=== PATIENT | female | born 1970 | race Caucasian/White ===

== ENCOUNTER 2016-05-05 12:48 | Emergency (ER) | payer OTHER ==
[2016-05-05 13:07] VITALS: BMI 27.4
[2016-05-05 13:12] VITALS: TEMP 98.3
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
[2016-05-05 14:59] VITALS: BP 120/65; PULSE 79; RESP 16; O2SAT 100
== END 2016-05-05 14:59 | disposition home or self-care (01) ==
LOC: ED 12:48
DX: S33.5XXA Sprain of ligaments of lumbar spine, initial encounter (principal); V49.9XXA Car occupant (driver) (passenger) injured in unspecified traffic accident, initial encounter

== ENCOUNTER 2018-01-05 06:36 | Emergency (ER) | payer OTHER ==
[2018-01-05 06:44] VITALS: BMI 28.3
[2018-01-05] MEDS ORDERED: Sodium Chloride 0.9% 500 ML IV STA (07:32)
[2018-01-05 08:11] LABS: BASO # 0.03 K/mm3 (0.0-2.0); BASO % 0.5 % (0.0-3.0); EOS # 0.2 (0.0-0.7); EOS % 3.2 % (1.5-5.0); GRAN # 4.32 (1.4-6.5); GRAN % 65.1 % (50.0-68.0); HEMOGLOBIN 10.5 g/dL (12.0-16.0); LYMPH # 1.4 (1.2-3.4); LYMPH % 21.1 % (22.0-35.0); MEAN CORPUSCULAR HEMOGLOBIN 24.5 pg (25.0-35.0); MEAN CORPUSCULAR HGB CONC 32.2 g/dl (31.0-37.0); MEAN PLATELET VOLUME 8.1 fl (7.0-11.0); MONO # 0.7 (0.1-0.6); MONO % 10.1 % (1.0-6.0); RBC 4.29 10^6/uL (3.5-6.1); RED CELL DISTRIBUTION WIDTH 14.7 % (11.5-14.5); WHITE BLOOD COUNT 6.6 10^3/uL (4.5-11.0)
[2018-01-05 08:15] LABS: ALB/GLOB RATIO 0.9 (1.1-1.8); ALBUMIN 3.4 g/dL (3.0-4.8); ALT/SGPT 24 U/L (7-56); AST/SGOT 17 U/L (14-36); BLOOD UREA NITROGEN 5 mg/dL (7-21); CALCIUM 8.4 mg/dL (8.4-10.5); GFR NON-AFRICAN AMERICAN > 60; LIPASE 84 U/L (23-300)
[2018-01-05 08:22] LABS: URINE BILIRUBIN NEGATIVE (NEGATIVE); URINE BLOOD LARGE (NEGATIVE); URINE GLUCOSE (UA) NEGATIVE (NEGATIVE); URINE LEUKOCYTE ESTERASE TRACE Leu/uL (NEGATIVE); URINE PROTEIN 30 mg/dL (<30 mg/dL); URINE UROBILINOGEN 0.2 E.U./dL (<1 E.U./dL)
[2018-01-05] MEDS ORDERED: Iohexol 350 MG/100 ML VIAL ONE (08:22)
[2018-01-05 08:27] LABS: URINE APPEARANCE CLEAR (CLEAR); URINE COLOR YELLOW (YELLOW)
--- NOTE | 2018-01-05 09:22 | CT ---
Date of service: 01/05/2018 PROCEDURE: CT Abdomen and Pelvis with contrast HISTORY: right-sided abdominal pain COMPARISON: CT abdomen and pelvis with IV contrast performed 11/25/15 TECHNIQUE: Contrast dose: 100 mL Omnipaque 350 Radiation dose: Total exam DLP = 429.85 mGy-cm. This CT exam was performed using one or more of the following dose reduction techniques: Automated exposure control, adjustment of the mA and/or kV according to patient size, and/or use of iterative reconstruction technique. FINDINGS: LOWER THORAX: No visible consolidation, pleural effusion, or pneumothorax. LIVER: Unremarkable. GALLBLADDER AND BILE DUCTS: Cholecystectomy. PANCREAS: Unremarkable. SPLEEN: Unremarkable. ADRENALS: Unremarkable. KIDNEYS AND URETERS: The kidneys enhance symmetrically. No hydronephrosis or obstructing calculus identified. VASCULATURE: No aortic aneurysm. No atherosclerotic calcification or mural plaque present. BOWEL: Stomach is nondistended. Lack of oral contrast limits evaluation for bowel pathology. No evidence of small-bowel obstruction. Abnormal irregularly thick walled cecum with suspected soft tissue neoplasm involving the cecum and proximal terminal ileum. Focal region of wall thickening involving the mid left colon. APPENDIX: The presumed appendix appears within normal limits of caliber. No secondary signs of acute appendicitis. PERITONEUM: Small pelvic free fluid. No definite free air. LYMPH NODES: Pericecal and mesenteric lymphadenopathy. For example abnormal enlarged pericecal lymph node measures approximately 1.9 cm in short axis (series 3, image 85). BLADDER: Under distended urinary bladder appears mildly thick-walled. REPRODUCTIVE: The uterus is present. BONES: No acute osseous abnormality is detected. OTHER FINDINGS: None. IMPRESSION: Irregularly thickened abnormal appearance of the cecum and proximal terminal ileum appears most worrisome for malignant neoplasm. Small region of colonic thickening involving the left mid colon as well. Recommend clinical correlation in order to assess for possibility of infectious/inflammatory etiologies. Adenopathy measuring up to 1.9 cm in short axis. Mildly thick-walled urinary bladder. Recommend correlation with urinalysis. Findings discussed with Dr. Lorenzana on 01/05/18 at 9:14 a.m.
[2018-01-05 09:32] LABS: URINE BACTERIA FEW (NEG)
--- NOTE | 2018-01-05 09:51 | ED PDOC ---
Arrival/HPI - General Chief Complaint: Abdominal Pain Historian: Patient - History of Present Illness Narrative History of Present Illness (Text): 01/05/18 07:46 A 47 year old female, whose past medical history includes cholecystectomy, presents to the emergency department complaining of intermittently persistent and worsening right-side abdominal pain for the past few weeks. Patient reports it has been intermittent for the past few months. States she saw her PMD recently who gave her a referral for Abdominal Ultrasound and GI consultation. Patient denies any nausea, vomiting, bloody stool, hematochezia, hematuria, or any other complaints at this time. PMD: Dr. Trent Lazar Past Medical History - Provider Review Nursing Documentation Reviewed: Yes - Infectious Disease Hx of Infectious Diseases: None - Cardiac Hx Cardiac Disorders: No - Pulmonary Hx Respiratory Disorders: No - Musculoskeletal/Rheumatological Hx Falls: No - Gastrointestinal Hx Hemorrhoids: Yes - Psychiatric Hx Substance Use: No - Surgical History Hx Section: Yes Hx Cholecystectomy: Yes Hx Tonsillectomy: Yes Hx Tubal Ligation: Yes - Anesthesia Hx Anesthesia: Yes Hx Anesthesia Reactions: No Hx Malignant Hyperthermia: No Family/Social History - Physician Review Nursing Documentation Reviewed: Yes Family/Social History: No Known Family HX Smoking Status: Never Smoked Hx Alcohol Use: No Hx Substance Use: No Allergies/Home Meds Allergies/Adverse Reactions: Allergies Penicillins Allergy (Verified 05/05/16 13:07) RASH Home Medications: Home Meds Medication Instructions Recorded Confirmed Dicyclomine [Bentyl] 20 mg PO TID 01/05/18 01/05/18 Famotidine [Pepcid] 40 mg PO BID 01/05/18 01/05/18 Lipase/Protease/Amylase [Zenpep Dr 1 tab PO TID 01/05/18 01/05/18 40,000 Unit Capsule] Simethicone [Gas-X] 1 tab PO PRN PRN 01/05/18 01/05/18 Review of Systems - Physician Review All systems were reviewed & negative as marked: Yes - Review of Systems Constitutional: absent: Fevers Gastrointestinal: Abdominal Pain (right-side). absent: Stool Changes (no bloody stool), Nausea, Vomiting, Appetite Changes, Hematochezia Genitourinary Female: absent: Hematuria Physical Exam Vital Signs Reviewed: Yes Vital Signs Temp Pulse Resp BP Pulse Ox 01/05/18 08:42 82 121/62 99 01/05/18 06:52 98.0 F 124 H 18 122/79 100 Temperature: Afebrile Blood Pressure: Normal Pulse: Regular Respiratory Rate: Normal Appearance: Positive for: Well-Appearing, Non-Toxic, Comfortable Pain Distress: None Mental Status: Positive for: Alert and Oriented X 3 - Systems Exam Head: Present: Atraumatic, Normocephalic Pupils: Present: PERRL Extroacular Muscles: Present: EOMI Conjunctiva: Present: Normal Mouth: Present: Moist Mucous Membranes Neck: Present: Normal Range of Motion Respiratory/Chest: Present: Clear to Auscultation, Good Air Exchange. No: Respiratory Distress, Accessory Muscle Use Cardiovascular: Present: Regular Rate and Rhythm, Normal S1, S2. No: Murmurs Abdomen: Present: Tenderness (mild right-side tenderness), Normal Bowel Sounds Back: Present: Normal Inspection Upper Extremity: Present: Normal Inspection. No: Cyanosis, Edema Lower Extremity: Present: Normal Inspection. No: Edema Neurological: Present: GCS=15, CN II-XII Intact, Speech Normal Skin: Present: Warm, Dry, Normal Color. No: Rashes Psychiatric: Present: Alert, Oriented x 3, Normal Insight, Normal Concentration Medical Decision Making ED Course and Treatment: 01/05/18 07:50 Impression: 47 year old female with intermittently persistent and worsening r ight-side abdominal pain. Physical exam shows mild right side abdominal tenderness with good bowel sounds; heart and lung exam is normal; no other acute findings on examination. Plan: -- Abd/Pelvis CT -- Labs -- Pepcid -- Toradol -- IV Fluids -- Urinalysis -- Urine Culture -- POC Urine Test -- Reassess and disposition Progress Notes: 01/05/2018 09:19 Abd/Pelvis CT IMPRESSION: Irregularly thickened abnormal appearance of the cecum and proximal terminal ileum appears most worrisome for malignant neoplasm. Small region of colonic thickening involving the left mid colon as well. Recommend clinical correlation in order to assess for possibility of infectious/inflammatory etiologies. Adenopathy measuring up to 1.9 cm in short axis. Mildly thick-walled urinary bladder. Recommend correlation with urinalysis. Dictator: Franca Adan MD 01/05/18 10:00 Upon reevaluation, patient is feeling better after taking the medications given to her here in the Emergency room. CT Abd/Pelvis shows irregular mass concerning for neoplasma. Spoke to patient's PMD about patient's case. Patient will follow- up with PMD tomorrow morning. Patient has been given CT findings and all questions have been answered. - Lab Interpretations Lab Results: 01/05/18 08:00 01/05/18 08:00 Lab Results 01/05/18 08:00: Sodium 138, Potassium 3.5 L, Chloride 106, Carbon Dioxide 26, Anion Gap 10, BUN 5 L, Creatinine 0.5 L, Est GFR ( Amer) > 60, Est GFR (Non-Af Amer) > 60, Random Glucose 102, Calcium 8.4, Magnesium 2.0, Total Bilirubin 0.3, AST 17, ALT 24, Alkaline Phosphatase 115, Total Protein 7.1, Albumin 3.4, Globulin 3.7, Albumin/Globulin Ratio 0.9 L, Lipase 84 01/05/18 08:00: WBC 6.6, RBC 4.29, Hgb 10.5 L, Hct 32.6 L, MCV 76.0 L, MCH 24.5 L, MCHC 32.2, RDW 14.7 H, Plt Count 511 H, MPV 8.1, Gran % 65.1, Lymph % (Auto) 21.1 L, [place] % (Auto) 10.1 H, Eos % (Auto) 3.2, Baso % (Auto) 0.5, Gran # 4.32, Lymph # (Auto) 1.4, [place] # (Auto) 0.7 H, Eos # (Auto) 0.2, Baso # (Auto) 0.03 01/05/18 07:40: Urine Color Yellow, Urine Appearance Clear, Urine pH 6.0, Ur Specific [place] 1.025, Urine Protein 30 H, Urine Glucose (UA) Negative, Urine Ketones Trace H, Urine Blood Large H, Urine Nitrate Negative, Urine Bilirubin Negative, Urine Urobilinogen 0.2, Ur Leukocyte Esterase Trace H, Urine RBC 1 - 3, Urine WBC 5 - 10, Ur Epithelial Cells 10 - 12, Urine Bacteria Few I have reviewed the lab results: Yes - RAD Interpretation Radiology Orders: 01/05/18 07:32 ABD & PELVIS IV CONTRAST ONLY [CT] Stat - Medication Orders Current Medication Orders: Discontinued Medications Famotidine (Pepcid) 20 mg IVP STAT STA Stop: 01/05/18 07:33 Last Admin: 01/05/18 08:03 Dose: 20 mg IVP Administration Document 01/05/18 08:03 GMI (Rec: 01/05/18 08:03 GMI [id number] Charges for Administration # of IVP Administrations 1 Sodium Chloride (Sodium Chloride 0.9%) 500 mls @ 1,000 mls/hr IV .Q30M STA Stop: 01/05/18 08:01 Last Admin: 01/05/18 08:02 Dose: 1,000 mls/hr eMAR Start Stop Document 01/05/18 08:02 GMI (Rec: 01/05/18 08:02 GMI [id number] Intravenous Solution Start Date 01/05/18 Start Time 08:02 End Date 01/05/18 End time 08:35 Total Infusion Time 33 Ketorolac Tromethamine (Toradol) 30 mg IVP STAT STA Stop: 01/05/18 07:33 Last Admin: 01/05/18 08:02 Dose: 30 mg MAR Pain Assessment Document 01/05/18 08:02 GMI (Rec: 01/05/18 08:03 GMI [id number] Pain Reassessment Is this a pain reassessment? Yes Sleep Is patient sleeping during reassessment? No Presence of Pain Presence of Pain Yes Pain Scale Used Protocol: PSCALES Pain Scale Used Numeric Location Upper or Lower Upper Pain Location Body Site Abdomen Description Description Acute Intensity of Pain at present 8 Pain Behavior Rubbing Site Facial Grimacing Alleviating Factors/Management Relaxation Techniques Techniques Alleviating Factors Distraction IVP Administration Document 01/05/18 08:02 GMI (Rec: 01/05/18 08:03 GMI [id number] Charges for Administration # of IVP Administrations 1 - Scribe Statement The provider has reviewed the documentation as recorded by the Jamar Gudino Provider Scribe Attestation: All medical record entries made by the Scribe were at my direction and personally dictated by me. I have reviewed the chart and agree that the record accurately reflects my personal performance of the history, physical exam, medical decision making, and the department course for this patient. I have also personally directed, reviewed, and agree with the discharge instructions and disposition. Disposition/Present on Arrival - Present on Arrival Any Indicators Present on Arrival: No History of DVT/PE: No History of Uncontrolled Diabetes: No Urinary Catheter: No History of Decub. Ulcer: No History Surgical Site Infection Following: None - Disposition Have Diagnosis and Disposition been Completed?: Yes Diagnosis: Abdominal mass Disposition: HOME/ ROUTINE Disposition Time: 09:25 Condition: GOOD Discharge Instructions (ExitCare): Acute Abdomen (Belly Pain), Adult (DC) Additional Instructions: TONG SANCHEZ, thank you for letting us take care of you today. Your provider was Oli Rollins DO and you were treated for abdominal pain. The emergency medical care you received today was directed at your acute symptoms. If you were prescribed any medication, please fill it and take as directed. It may take several days for your symptoms to resolve. Return to the Emergency Department if your symptoms worsen, do not improve, or if you have any other problems. Please contact your doctor or call one of the physicians/clinics you have been referred to that are listed on the Patient Visit Information form that is included in your discharge packet. Bring any paperwork you were given at discharge with you along with any medications you are taking to your follow up visit. Our treatment cannot replace ongoing medical care by a primary care pro vider outside of the emergency department. Thank you for allowing the [employer] team to be part of your care today. Follow up with your primary care doctor tomorrow morning. He is expecting your phone call in the morning. Prescriptions: Ibuprofen [Motrin Tab] 800 mg PO Q6 PRN #20 tab PRN Reason: Pain, Moderate (4-7) Referrals: Trent Lazar MD [Family Provider] - Follow up with primary Forms: giddy (Latvian)
[2018-01-05 11:10] VITALS: BP 119/53; PULSE 75; RESP 19; TEMP 98; O2SAT 100
--- NOTE | 2018-01-05 22:24 | CARD ---
APPROVED REPORT Date of service: 01/05/2018 EKG Measurement Heart [id number] <Conclusion> Sinus tachycardia Otherwise normal ECG
== END 2018-01-05 11:11 | disposition home or self-care (01) ==
LOC: ED 06:36
DX: R19.00 Intra-abdominal and pelvic swelling, mass and lump, unspecified site (principal); Z90.49 Acquired absence of other specified parts of digestive tract
CPT/HCPCS: 74177; 80053; 81001; 83690; 83735; 85025; 87086; 93005; 96361; 96374; 96375; 99284; J1885; J7040; Q9967

== ENCOUNTER 2018-06-20 00:03 | Inpatient (IN) | payer MEDICAID ==
[2018-06-20 00:06] VITALS: BMI 20.3
[2018-06-20] MEDS ORDERED: Sodium Chloride 0.9% 1,000 ML IV STA ×2 (00:11→02:12)
--- NOTE | 2018-06-20 00:16 | ED PDOC ---
Arrival/HPI - General Chief Complaint: Syncope - Critical Care Critical Care Minutes: 45 minutes Narrative Critical Care (Text): Required immediate attention upon arrival due to life threatening condition. - History of Present Illness Narrative History of Present Illness (Text): 47 y/o F c PMHx colon cancer s/p colostomy, on chemo p/w general weakness today. States was not feeling well, complaining of chest pain, which she has had for a long time she states. She is feeling weak. EMS reports patient was hypotensive, tachycardic to 160 and had bowel movement when they picked her up and lost consciousness. Full HPI/ROS unobtainable due to patient's weakness. Past Medical History - Infectious Disease Hx of Infectious Diseases: None - Cardiac Hx Cardiac Disorders: Yes - Pulmonary Hx Respiratory Disorders: No - Neurological Hx Neurological Disorder: No - HEENT Hx HEENT Disorder: No - Renal Hx Renal Disorder: No - Endocrine/Metabolic Hx Endocrine Disorders: No - Hematological/Oncological Hx Blood Disorders: No - Integumentary Hx Dermatological Disorder: No - Musculoskeletal/Rheumatological Hx Musculoskeletal Disorders: No - Gastrointestinal Hx Gastrointestinal Disorders: Yes (DIARRHEA) Hx Gall Bladder Disease: Yes - Genitourinary/Gynecological Hx Genitourinary Disorders: No - Psychiatric Hx Psychophysiologic Disorder: No Hx Substance Use: No - Surgical History Hx Section: Yes Hx Cholecystectomy: Yes Hx Tonsillectomy: Yes Hx Tubal Ligation: Yes Other/Comment: tonsilectomy. x1 - Anesthesia Hx Malignant Hyperthermia: No Family/Social History Family/Social History: No Known Family HX Smoking Status: Never Smoked Hx Alcohol Use: No Hx Substance Use: No Allergies/Home Meds Allergies/Adverse Reactions: Allergies Penicillins Allergy (Verified 06/20/18 00:06) RASH Home Medications: Home Meds Medication Instructions Recorded Confirmed Ondansetron HCl [Zofran] 4 mg PO Q4 PRN 06/20/18 06/20/18 Review of Systems - Review of Systems Systems not reviewed;Unavailable: Acuity of Condition Physical Exam - Physical Exam Narrative Physical Exam (Text): gen weak head nc/at eyes no conjunctivitis ent dry mm neck supple cv tachy chest no tenderness abd colostomy bag skin no rash extremities no edema neuro awake and alert, weak Medical Decision Making ED Course and Treatment: ekg nsr 135 bpm, no ST elevations CXR pleural effusions bilaterally, no pneumonia. IVF with improvement in HR and BP stable. Dr. Beltran accepts patient to hospitalist service. - RAD Interpretation Radiology Orders: 06/20/18 00:11 CHEST PORTABLE [RAD] Stat Disposition/Present on Arrival - Present on Arrival Any Indicators Present on Arrival: No History of DVT/PE: No History of Uncontrolled Diabetes: No Urinary Catheter: No History of Decub. Ulcer: No History Surgical Site Infection Following: None - Disposition Have Diagnosis and Disposition been Completed?: Yes Diagnosis: Syncope, Hypotension Disposition: HOSPITALIZED Disposition Time: 02:00 Patient Plan: Observation, Telemetry Condition: FAIR
[2018-06-20 00:36] LABS: VENOUS BLOOD GAS BASE EXCESS 6.1 mmol/L (0.0-2.0); VENOUS BLOOD PH 7.44 (7.32-7.43)
[2018-06-20 00:51] LABS: BASO # 0.01 K/mm3 (0.0-2.0); BASO % 0.2 % (0.0-3.0); EOS # 0.1 (0.0-0.7); EOS % 2.2 % (1.5-5.0); LYMPH % 18.4 % (22.0-35.0); MEAN CELL VOLUME 76.6 fl (80.0-105.0); MEAN CORPUSCULAR HEMOGLOBIN 25.9 pg (25.0-35.0); MEAN CORPUSCULAR HGB CONC 33.8 g/dl (31.0-37.0); MEAN PLATELET VOLUME 9.2 fl (7.0-11.0); MONO # 0.7 (0.1-0.6); MONO % 13.3 % (1.0-6.0); RBC 5.09 10^6/uL (3.5-6.1); RED CELL DISTRIBUTION WIDTH 18.7 % (11.5-14.5); WHITE BLOOD COUNT 5.4 10^3/uL (4.5-11.0)
[2018-06-20 00:52] LABS: HEMOGLOBIN 13.2 g/dL (12.0-16.0)
[2018-06-20 01:00] LABS: INR 1.35; PARTIAL THROMBOPLASTIN TIME 35.4 Seconds (26.9-38.3)
[2018-06-20 01:03] LABS: ALBUMIN 4.2 g/dL (3.0-4.8); ALT/SGPT 78 U/L (7-56); AST/SGOT 102 U/L (14-36); BLOOD UREA NITROGEN 12 mg/dL (7-21); CALCIUM 9.2 mg/dL (8.4-10.5); GFR NON-AFRICAN AMERICAN > 60; LIPASE 201 U/L (23-300)
[2018-06-20 01:15] LABS: B-TYPE NATRIURETIC PEPTIDE 104 pg/mL (0-450); TROPONIN I < 0.01 ng/mL
--- NOTE | 2018-06-20 02:08 | CP.PCM.HP ---
<Jose Anthony - Last Filed: 06/20/18 03:40> History of Present Illness - History of Present Illness History of Present Illness: PGY-1 Medicine H&P for Dr. Beltran CC: Generalized weakness HPI: Patient is a 47 year old female with a past medical history of colon cancer (s/p colectomy and colostomy) and HLD, presenting with generalized weakness for 2 weeks. She was diagnosed with colon cancer in March of 2017 and got her surgery in January of 2018. Patient states that she is currently on chemotherapy and her last dose was 2 weeks ago. She states that she has not been eating as she has no appetite. She also admits to nausea and have episodes of vomiting almost every day. She states that she vomited twice today after attemtping to eat a sandwich. Patient is taking Capecitabine daily and states that the medication is making her symptoms worse. She denies hematemesis, fevers, chills, night sweats, chest pain, shortness of breath, diarrhea, or urinary symptoms. 12-point ROS reviewed and negative, except mentioned in HPI. PMHx: Colon cancer s/p colectomy and colostomy (01/2018), HLD PSH: Colectomy, colostomy, , cholecystectomy, tubal ligation Allergies: Penicillin Social Hx: Denies tobacco, alcohol, or drug use. Lives at home with children. Family Hx: Mother had breast cancer. Medications: Capecitabine, Zofran, Tramadol- doses unsure PMD: Dr. Lazar Oncologist: Dr. Diogo Teixeira [facility]acy: [facility] [address] in [place]- Will call in the morning to verify m edications Present on Admission - Present on Admission Any Indicators Present on Admission: No History of DVT/PE: No History of Uncontrolled Diabetes: No Urinary Catheter: No Decubitus Ulcer Present: No Past Patient History - Infectious Disease Hx of Infectious Diseases: None - Past Medical History & Family History Past Medical History?: Yes - Past Social History Smoking Status: Never Smoked - CARDIAC Hx Cardiac Disorders: Yes - PULMONARY Hx Respiratory Disorders: No - NEUROLOGICAL Hx Neurological Disorder: No - HEENT Hx HEENT Problems: No - RENAL Hx Chronic Kidney Disease: No - ENDOCRINE/METABOLIC Hx Endocrine Disorders: No - HEMATOLOGICAL/ONCOLOGICAL Hx Blood Disorders: No - INTEGUMENTARY Hx Dermatological Problems: No - MUSCULOSKELETAL/RHEUMATOLOGICAL Hx Musculoskeletal Disorders: No - GASTROINTESTINAL Hx Gastrointestinal Disorders: Yes (DIARRHEA) Hx Gall Bladder Disease: Yes - GENITOURINARY/GYNECOLOGICAL Hx Genitourinary Disorders: No - PSYCHIATRIC Hx Psychophysiologic Disorder: No Hx Substance Use: No - SURGICAL HISTORY Hx Section: Yes Hx Cholecystectomy: Yes Hx Tonsillectomy: Yes Hx Tubal Ligation: Yes Other/Comment: tonsilectomy. x1 - ANESTHESIA Hx Malignant Hyperthermia: No Meds Allergies/Adverse Reactions: Allergies Allergy/AdvReac Type Severity Reaction Status Date / Time Penicillins Allergy RASH Verified 06/20/18 00:06 Physical Exam - Constitutional Appears: Non-toxic, No Acute Distress, Chronically Ill - Head Exam Head Exam: ATRAUMATIC, NORMAL INSPECTION - Eye Exam Eye Exam: EOMI, Normal appearance Pupil Exam: NORMAL ACCOMODATION - ENT Exam ENT Exam: Mucous Membranes Dry - Neck Exam Neck exam: Positive for: Normal Inspection - Respiratory Exam Respiratory Exam: Clear to Auscultation Bilateral, NORMAL BREATHING PATTERN. absent: Accessory Muscle Use, Rales, Rhonchi, Wheezes, Respiratory Distress - Cardiovascular Exam Cardiovascular Exam: Tachycardia, +S1, +S2. absent: Gallop, Rubs, Systolic Murmur - GI/Abdominal Exam GI & Abdominal Exam: Normal Bowel Sounds, Soft, Tenderness (Diffuse tenderness on palpation). absent: Distended, Firm, Guarding Additional comments: Colostomy bag noted on right abdomen. Dressing in middle of the abdomen C/D/I - Extremities Exam Extremities exam: Positive for: normal inspection. Negative for: calf tenderness, pedal edema - Back Exam Back exam: NORMAL INSPECTION - Neurological Exam Neurological exam: Alert, CN II-XII Intact, Oriented x3 - Psychiatric Exam Psychiatric exam: Normal Affect, Normal Mood - Skin Skin Exam: Dry, Normal Color, Warm Results - Vital Signs Recent Vital Signs: Last Vital Signs Temp 97.5 F L 06/20/18 00:04 Pulse 112 H 06/20/18 02:04 Resp 13 06/20/18 02:04 BP 110/74 06/20/18 02:04 Pulse Ox 100 06/20/18 02:04 - Labs Result Diagrams: 06/20/18 00:17 06/20/18 00:17 Labs: Laboratory Results - last 24 hr 05/03/19 05/03/19 05/03/19 00:10 00:17 00:17 WBC 5.4 RBC 5.09 Hgb 13.2 D Hct 39.0 MCV 76.6 L MCH 25.9 MCHC 33.8 RDW 18.7 H Plt Count 233 MPV 9.2 Neut % (Auto) 65.9 Lymph % (Auto) 18.4 L Simpson % (Auto) 13.3 H Eos % (Auto) 2.2 Baso % (Auto) 0.2 Lymph # (Auto) 1.0 L Simpson # (Auto) 0.7 H Eos # (Auto) 0.1 Baso # (Auto) 0.01 Absolute Neuts (auto) 3.58 PT 15.0 H INR 1.35 APTT 35.4 pO2 TEST NOT PERFORMED VBG pH 7.44 H VBG pCO2 46.0 VBG HCO3 31.2 H VBG Total CO2 32.6 H VBG O2 Sat (Calc) 80.1 H VBG Base Excess 6.1 H VBG Potassium 3.2 L Sodium 137.0 Chloride 94.0 L Glucose 173 H Lactate 2.6 H FiO2 21.0 Crit Value Called To Bridgett roberts orthopedic rn Crit Value Called By Coty perdue software implementation specialist Blood Gas Notified Time 34 Potassium Carbon Dioxide Anion Gap BUN Creatinine Est GFR ( Amer) Est GFR (Non-Af Amer) Random Glucose Calcium Total Bilirubin AST ALT Alkaline Phosphatase Total Creatine Kinase Troponin I NT-Pro-B Natriuret Pep Total Protein Albumin Globulin Albumin/Globulin Ratio Lipase Venous Blood Potassium 3.2 L BBK History Checked 06/20/18 06/20/18 00:17 00:17 WBC RBC Hgb Hct MCV MCH MCHC RDW Plt Count MPV Neut % (Auto) Lymph % (Auto) Simpson % (Auto) Eos % (Auto) Baso % (Auto) Lymph # (Auto) Simpson # (Auto) Eos # (Auto) Baso # (Auto) Absolute Neuts (auto) PT INR APTT pO2 VBG pH VBG pCO2 VBG HCO3 VBG Total CO2 VBG O2 Sat (Calc) VBG Base Excess VBG Potassium Sodium 135 Chloride 93 L Glucose Lactate FiO2 Crit Value Called To Crit Value Called By Blood Gas Notified Time Potassium 3.1 L Carbon Dioxide 29 Anion Gap 16 BUN 12 Creatinine 0.6 L Est GFR ( Amer) > 60 Est GFR (Non-Af Amer) > 60 Random Glucose 173 H Calcium 9.2 Total Bilirubin 1.5 H AST 102 H D ALT 78 H Alkaline Phosphatase 330 H D Total Creatine Kinase < 20 L Troponin I < 0.01 NT-Pro-B Natriuret Pep 104 Total Protein 8.6 H Albumin 4.2 Globulin 4.4 Albumin/Globulin Ratio 1.0 L Lipase 201 Venous Blood Potassium BBK History Checked No verified bt Assessment & Plan - Assessment and Plan (Free Text) Assessment: Patient is a 47 year old female with a past medical history of colon cancer (s/p colectomy and colostomy) and HLD, presenting with generalized weakness for 2 weeks. Plan: Abdominal pain - Likely 2/2 history of colon cancer vs multiple vomiting episodes vs liver disease - Follow up abdominal ultrasound - CXR: pending read - Morphine 2mg Q6H PRN - Keep patient NPO for now - NS @ 100 mL/hr Sinus tachycardia with QTc prolongation - Likely 2/2 to pain vs dehydration - EKG: Sinus tachycardia @ 135. QTc: 555 - NS @ 100 mL/hr - 2 X NS boluses given in ED - Avoid medications that cause QT prolongation Nausea with vomiting - Likely 2/2 chemotherapy - Promethazine 25mg PO Q6H PRN - Cepacol PRN for sore throat Hypokalemia - Replete as needed - Continue to monitor - Magnesium levels WNL Prophylaxis: - DVT: Lovenox 40mg SC QD - GI: Not indicated Disposition: Discontinue home medications Zofran and Tramadol upon discharge as these medications cause QT prolongation. Patient seen and case discussed with attending, Dr. Beltran. Jose Anthony, PGY-1 <Taylor Beltran - Last Filed: 06/21/18 06:24> Results - Vital Signs Recent Vital Signs: Last Vital Signs Temp 98.7 F 06/20/18 18:00 Pulse 108 H 06/20/18 18:00 Resp 20 06/20/18 18:00 BP 105/74 06/20/18 18:00 Pulse Ox 100 06/20/18 18:00 - Labs Result Diagrams: 06/20/18 12:30 06/20/18 12:30 Labs: Laboratory Results - last 24 hr 06/20/18 06/20/18 06/20/18 12:30 12:30 12:30 WBC 4.0 L D RBC 4.10 Hgb 10.6 L D Hct 31.7 L MCV 77.3 L MCH 25.9 MCHC 33.4 RDW 18.9 H Plt Count 176 MPV 8.7 Neut % (Auto) 60.7 Lymph % (Auto) 16.9 L Simpson % (Auto) 21.9 H Eos % (Auto) 0.5 L Baso % (Auto) 0.0 Lymph # (Auto) 0.7 L Simpson # (Auto) 0.9 H Eos # (Auto) 0.0 Baso # (Auto) 0.00 Absolute Neuts (auto) 2.44 Neutrophils % (Manual) 65 Lymphocytes % (Manual) 18 L Atypical Lymphs % 1 H Monocytes % (Manual) 16 H pO2 171 H VBG pH 7.39 VBG pCO2 46.0 VBG HCO3 27.8 VBG Total CO2 29.2 H VBG O2 Sat (Calc) 99.9 H VBG Base Excess 2.2 H VBG Potassium 3.9 Sodium 137 137.0 Chloride 104 107.0 Glucose 107 H Lactate 0.9 FiO2 21.0 Potassium 4.0 Carbon Dioxide 27 Anion Gap 9 L BUN 6 L Creatinine 0.4 L Est GFR ( Amer) > 60 Est GFR (Non-Af Amer) > 60 Random Glucose 106 Calcium 8.2 L Phosphorus 2.4 L Magnesium 1.7 Total Bilirubin 1.0 AST 63 H D ALT 59 H Alkaline Phosphatase 220 H D Total Protein 6.5 Albumin 3.1 Globulin 3.4 Albumin/Globulin Ratio 0.9 L Venous Blood Potassium 3.9 Attending/Attestation - Attestation I have personally seen and examined this patient.: Yes I have fully participated in the care of the patient.: Yes I have reviewed all pertinent clinical information: Yes Notes (Text): 06/21/18 06:22 Seen and examined. Discussed with resident. Exam significant for ostomy bag with stool and epigastric tenderness. add protonix and ppto-bismol. A&P as above. Discontinue Tramadol and Zofran 2/2 prolonged QTC.
[2018-06-20] MEDS ORDERED: Potassium Chloride 20 mEq ER Tab PO ONE (02:12)
[2018-06-20 02:32] LABS: URINE BILIRUBIN NEGATIVE (NEGATIVE); URINE BLOOD TRACE-LYSED (NEGATIVE); URINE GLUCOSE (UA) NEGATIVE (NEGATIVE); URINE LEUKOCYTE ESTERASE SMALL Leu/uL (NEGATIVE); URINE PROTEIN 100 mg/dL (<30 mg/dL); URINE UROBILINOGEN 0.2 E.U./dL (<1 E.U./dL)
[2018-06-20 02:39] LABS: URINE APPEARANCE SL CLOUDY (CLEAR); URINE COLOR YELLOW (YELLOW)
[2018-06-20 02:47] LABS: URINE AMORPHOUS SEDIMENT FEW /hpf; URINE BACTERIA MANY /hpf; URINE EPITHELIAL CELLS MANY /hpf (0-5); URINE RBC 0 - 2 /hpf (0-2)
[2018-06-20] MEDS ORDERED: Promethazine 6.25 MG/5 ML CUP PO PRN (03:04)
[2018-06-20] MEDS ORDERED: Benzocaine/Menthol (Cepacol) Lozenge MT PRN (03:22)
[2018-06-20] MEDS: Morphine 2 mg/ml ISec IVP PRN ×2 (04:00→21:34)
[2018-06-20] MEDS: Sodium Chloride 0.9% 1,000 ML IV SCH ×2 (04:24→14:31)
[2018-06-20] MEDS ORDERED: Pantoprazole 40 mg EC Tab PO SCH (06:00)
--- NOTE | 2018-06-20 08:19 | RAD ---
HISTORY: syncope COMPARISON: Chest x-ray performed 08/26/15 TECHNIQUE: Chest, one view. FINDINGS: Right-sided central venous catheter extends to the SVC. LUNGS: Mild right basilar atelectasis. Please note that chest x-ray has limited sensitivity for the detection of pulmonary masses. PLEURA: Probable tiny bilateral pleural effusions. No definite pneumothorax . CARDIOVASCULAR: The cardiomediastinal silhouette appears within normal limits of size. No significant atherosclerotic calcification present. OSSEOUS STRUCTURES: Degenerative changes. VISUALIZED UPPER ABDOMEN: Right upper quadrant surgical clips. OTHER FINDINGS: None. IMPRESSION: Right-sided central venous catheter extends expected location of the SVC. Mild right basilar atelectasis and probable tiny bilateral pleural effusions.
--- NOTE | 2018-06-20 09:28 | US ---
HISTORY: Elevated LFT's, abd pain COMPARISON: CT of the chest, abdomen, and pelvis with IV contrast performed 02/04/18 TECHNIQUE: Sonographic evaluation of the abdomen. FINDINGS: Examination limited by bowel gas. LIVER: Measures 16.2 cm in sagittal dimension and appears within normal limits of size, shape, and echotexture. No focal hepatic mass identified. The main portal vein appears patent with normal directional flow. No intrahepatic bile duct dilatation. GALLBLADDER: Cholecystectomy. COMMON BILE DUCT: Measures 8 mm. PANCREAS: Not well visualized. RIGHT KIDNEY: Measures 11.2 x 4.3 x 4.6 cm. No obstructing calculus or hydronephrosis identified. LEFT KIDNEY: Measures 11.1 x 5.3 x 4.6 cm. No obstructing calculus or hydronephrosis identified. SPLEEN: Measures approximately 10.2 cm. AORTA: Limited views appear unremarkable. IVC: Limited views appear unremarkable. OTHER FINDINGS: None. IMPRESSION: Examination limited by bowel gas. Dilated common bile duct in the setting of cholecystectomy.
--- NOTE | 2018-06-20 09:33 | CARD ---
APPROVED REPORT Date of service: 06/20/2018 EKG Measurement Heart [id number] <Conclusion> Sinus tachycardia Nonspecific T wave abnormality Abnormal ECG
--- NOTE | 2018-06-20 09:37 | CARD ---
APPROVED REPORT Date of service: 06/20/2018 EKG Measurement Heart [id number] <Conclusion> Sinus tachycardia with short WA Nonspecific T wave abnormality Abnormal ECG
[2018-06-20] MEDS ORDERED: Enoxaparin 40 mg Syringe SC SCH (10:00)
[2018-06-20 12:57] LABS: VENOUS BLOOD GAS BASE EXCESS 2.2 mmol/L (0.0-2.0); VENOUS BLOOD GAS PO2 171 mm/Hg (30-55); VENOUS BLOOD PH 7.39 (7.32-7.43)
[2018-06-20 12:58] LABS: EOS % 0.5 % (1.5-5.0); HEMOGLOBIN 10.6 g/dL (12.0-16.0); LYMPH # 0.7 (1.2-3.4); LYMPH % 16.9 % (22.0-35.0); MEAN CELL VOLUME 77.3 fl (80.0-105.0); MEAN CORPUSCULAR HEMOGLOBIN 25.9 pg (25.0-35.0); MEAN CORPUSCULAR HGB CONC 33.4 g/dl (31.0-37.0); MEAN PLATELET VOLUME 8.7 fl (7.0-11.0); MONO # 0.9 (0.1-0.6); MONO % 21.9 % (1.0-6.0); PLATELET COUNT 176 10^3/uL (120.0-450.0); RED CELL DISTRIBUTION WIDTH 18.9 % (11.5-14.5)
[2018-06-20] MEDS: Bismuth Subsalicylate 262 mg/15 ml Sus (240 ml) PO SCH ×2 (13:11→18:09)
[2018-06-20 13:25] LABS: ALB/GLOB RATIO 0.9 (1.1-1.8); ALBUMIN 3.1 g/dL (3.0-4.8); ALT/SGPT 59 U/L (7-56); AST/SGOT 63 U/L (14-36); BLOOD UREA NITROGEN 6 mg/dL (7-21); CALCIUM 8.2 mg/dL (8.4-10.5); GFR NON-AFRICAN AMERICAN > 60
[2018-06-20 14:04] LABS: ATYPICAL LYMPHOCYTE 1 % (0.0-0.0); LYMPHOCYTE 18 % (22.0-35.0); MONOCYTE 16 % (1.0-6.0); NEUTROPHIL 65 % (50.0-70.0)
[2018-06-20] MEDS ORDERED: Potassium & Sodium Phosphate PO ONE (14:07)
[2018-06-20] MEDS: Sucralfate 1 gm/10 ml Oral Susp UD PO SCH ×3 (15:21→21:31)
[2018-06-21] MEDS: Morphine 2 mg/ml ISec IVP PRN ×4 (03:29→21:56)
[2018-06-21 06:52] LABS: EOS # 0.2 (0.0-0.7); EOS % 5.4 % (1.5-5.0); HEMOGLOBIN 8.7 g/dL (12.0-16.0); LYMPH # 1.3 (1.2-3.4); LYMPH % 41.3 % (22.0-35.0); MEAN CELL VOLUME 78.3 fl (80.0-105.0); MEAN CORPUSCULAR HEMOGLOBIN 25.9 pg (25.0-35.0); MEAN CORPUSCULAR HGB CONC 33.1 g/dl (31.0-37.0); MEAN PLATELET VOLUME 8.2 fl (7.0-11.0); MONO # 0.6 (0.1-0.6); MONO % 19.2 % (1.0-6.0); RBC 3.36 10^6/uL (3.5-6.1); RED CELL DISTRIBUTION WIDTH 18.9 % (11.5-14.5); WHITE BLOOD COUNT 3.2 10^3/uL (4.5-11.0)
[2018-06-21 07:32] LABS: ALB/GLOB RATIO 0.9 (1.1-1.8); ALBUMIN 2.5 g/dL (3.0-4.8); ALT/SGPT 43 U/L (7-56); AST/SGOT 33 U/L (14-36); BLOOD UREA NITROGEN < 2 mg/dL (7-21); CALCIUM 7.7 mg/dL (8.4-10.5); GFR NON-AFRICAN AMERICAN > 60
--- NOTE | 2018-06-21 09:40 | CP.PCM.CON ---
History of Present Illness - History of Present Illness History of Present Illness: Asked by hospitalist team for a GI consultation on this patient. 47 year old female with history of colon cancer diagnosed in December [address] Nuñez who presents with complaint of fatigue and abdominal pain. She underwent colonic resection with Dr. Oswald at [facility] [place] in January 2018 where he performed a R hemicolectomy and partial sigmoid resection in two stage process with ileostomy. Pathology from surgical resection showed adenocarcinoma in setting of underlying ulcerative colitis. She is seen currently resting in bed comfortably. She reports improvement in abdominal pain and denies nausea, vomiting, fever/chills. As per nursing staff, scant amount of fresh red blood per rectum visualized. She is receiving chemotherapy with Dr. Teixeira, last dose two weeks ago as per patient. Social history: non-smoker, no ETOH use Family history: mother (breast cancer) Review of Systems - Review of Systems Review of Systems: - All other comprehensive 12 point review of systems performed, negative - Constitutional Constitutional: Fatigue - Cardiovascular Cardiovascular: absent: Acrocyanosis, Chest Pain, Chest Pain at Rest, Chest Pain with Activity, Claudication, Diaphoresis, Dyspnea, Dyspnea on Exertion, Edema, Irregular Heart Rhythm, Pain Radiating to Arm/Neck/Jaw, Leg Edema, Leg Ulcers, Lightheadedness, Orthopnea, Palpitations, Paroxysmal Nocturnal Dyspnea, Pedal Edema, Radiating Pain, Rapid Heart Rate, Slow Heart Rate, Syncope, Other - Respiratory Respiratory: absent: Cough, Dyspnea, Hemoptysis, Dyspnea on Exertion, Wheezing, Snoring, Stridor, Pain on Inspiration, Chest Congestion, Excessive Mucous Production, Change in Mucous Color, Pain with Coughing, Other - Gastrointestinal Gastrointestinal: Abdominal Pain, Hematochezia - Musculoskeletal Musculoskeletal: absent: Abnormal Gait, Arthralgias, Atrophy, Back Pain, Deformity, Joint Swelling, Limited Range of Motion, Loss of Height, Muscle Cramps, Muscle Weakness, Myalgias, Neck Pain, Numbness, Radiating Pain into Limb, Stiffness, Tingling, Other - Neurological Neurological: absent: Abnormal Gait, Abnormal Hearing, Abnormal Movements, A bnormal Speech, Behavioral Changes, Burning Sensations, Confusion, Convulsions, Disequilibrium, Dizziness, Numbness, Focal Weakness, Frequent Falls, Headaches, Lack of Coordination, Loss of Vision, Memory Loss, Paresthesias, Radicular Pain, Restless Legs, Sensory Deficit, Syncope, Tingling, Tremor, Vertigo, Weakness, Other Visual Disturbances, Other Past Patient History - Infectious Disease Hx of Infectious Diseases: None - Past Medical History & Family History Past Medical History?: Yes - Past Social History Smoking Status: Never Smoked - CARDIAC Hx Cardiac Disorders: Yes - PULMONARY Hx Respiratory Disorders: No - NEUROLOGICAL Hx Neurological Disorder: No - HEENT Hx HEENT Problems: No - RENAL Hx Chronic Kidney Disease: No - ENDOCRINE/METABOLIC Hx Endocrine Disorders: No - HEMATOLOGICAL/ONCOLOGICAL Hx Blood Disorders: No - INTEGUMENTARY Hx Dermatological Problems: No - MUSCULOSKELETAL/RHEUMATOLOGICAL Hx Musculoskeletal Disorders: No - GASTROINTESTINAL Hx Gastrointestinal Disorders: Yes (DIARRHEA) Hx Gall Bladder Disease: Yes - GENITOURINARY/GYNECOLOGICAL Hx Genitourinary Disorders: No - PSYCHIATRIC Hx Psychophysiologic Disorder: No Hx Substance Use: No - SURGICAL HISTORY Hx Section: Yes Hx Cholecystectomy: Yes Hx Tonsillectomy: Yes Hx Tubal Ligation: Yes Other/Comment: tonsilectomy. x1 - ANESTHESIA Hx Malignant Hyperthermia: No Meds Allergies/Adverse Reactions: Allergies Allergy/AdvReac Type Severity Reaction Status Date / Time Penicillins Allergy RASH Verified 06/20/18 00:06 - Medications Medications: Current Medications Benzocaine/Menthol (Cepacol Sore Throat) 1 arti MT Q2H PRN PRN Reason: Sore Throat Last Admin: 06/20/18 04:00 Dose: 1 arti Bismuth Subsalicylate (Pepto-Bismol) 262 mg PO BID [facility] Stop: 06/22/18 10:00 Last Admin: 06/20/18 18:09 Dose: Not Given Enoxaparin Sodium (Lovenox) 40 mg SC DAILY [facility]; Protocol Last Admin: 06/20/18 10:56 Dose: Not Given Sodium Chloride (Sodium Chloride 0.9%) 1,000 mls @ 100 mls/hr IV .Q10H OLINDA Last Admin: 06/20/18 14:31 Dose: Not Given Potassium Chloride (Potassium Chloride 10 Meq/100 Ml) 10 meq in 100 mls @ 100 mls/hr IVPB Q2H OLINDA Stop: 06/21/18 15:14 Metoclopramide HCl (Reglan) 5 mg IVP Q6H PRN PRN Reason: Nausea/Vomiting Last Admin: 06/20/18 10:56 Dose: 5 mg Morphine Sulfate (Morphine) 2 mg IVP Q4H PRN PRN Reason: Pain, severe (8-10) Pantoprazole Sodium (Protonix Inj) 40 mg IVP BID [facility] Sucralfate (Carafate Oral Susp) 1 gm PO QID [facility] Last Admin: 06/20/18 21:31 Dose: 1 gm Physical Exam - Constitutional Appears: Non-toxic, No Acute Distress - Head Exam Head Exam: NORMAL INSPECTION - Eye Exam Eye Exam: EOMI, Normal appearance - ENT Exam ENT Exam: Mucous Membranes Moist - Respiratory Exam Respiratory Exam: Clear to Auscultation Bilateral - Cardiovascular Exam Cardiovascular Exam: REGULAR RHYTHM, +S1, +S2 - GI/Abdominal Exam GI & Abdominal Exam: Normal Bowel Sounds, Soft, Tenderness Additional comments: mild epigastric tenderness to palpation, no rebound/guarding RLQ ostomy present with green liquid stool in bag no palpable hepato/splenomegaly - Rectal Exam Additional comments: increased anal sphincter tone + hemorrhoids, +mucous discharge no blood in rectal vault - Extremities Exam Extremities exam: Positive for: normal inspection - Neurological Exam Neurological exam: Alert, CN II-XII Intact, Oriented x3, Reflexes Normal - Psychiatric Exam Psychiatric exam: Normal Affect, Normal Mood - Skin Skin Exam: Dry, Intact, Normal Color, Warm Results - Vital Signs Recent Vital Signs: Last Vital Signs Temp 98.6 F 06/21/18 08:14 Pulse 98 H 06/21/18 08:14 Resp 18 06/21/18 08:14 BP 99/63 L 06/21/18 08:14 Pulse Ox 99 06/21/18 08:14 - Labs Result Diagrams: 06/21/18 06:30 06/21/18 06:30 Labs: Laboratory Results - last 24 hr 06/20/18 06/20/18 06/20/18 12:30 12:30 12:30 WBC 4.0 L D RBC 4.10 Hgb 10.6 L D Hct 31.7 L MCV 77.3 L MCH 25.9 MCHC 33.4 RDW 18.9 H Plt Count 176 MPV 8.7 Neut % (Auto) 60.7 Lymph % (Auto) 16.9 L Izard % (Auto) 21.9 H Eos % (Auto) 0.5 L Baso % (Auto) 0.0 Lymph # (Auto) 0.7 L Izard # (Auto) 0.9 H Eos # (Auto) 0.0 Baso # (Auto) 0.00 Absolute Neuts (auto) 2.44 Neutrophils % (Manual) 65 Lymphocytes % (Manual) 18 L Atypical Lymphs % 1 H Monocytes % (Manual) 16 H pO2 171 H VBG pH 7.39 VBG pCO2 46.0 VBG HCO3 27.8 VBG Total CO2 29.2 H VBG O2 Sat (Calc) 99.9 H VBG Base Excess 2.2 H VBG Potassium 3.9 Sodium 137 137.0 Chloride 104 107.0 Glucose 107 H Lactate 0.9 FiO2 21.0 Potassium 4.0 Carbon Dioxide 27 Anion Gap 9 L BUN 6 L Creatinine 0.4 L Est GFR ( Amer) > 60 Est GFR (Non-Af Amer) > 60 Random Glucose 106 Calcium 8.2 L Phosphorus 2.4 L Magnesium 1.7 Total Bilirubin 1.0 AST 63 H D ALT 59 H Alkaline Phosphatase 220 H D Total Protein 6.5 Albumin 3.1 Globulin 3.4 Albumin/Globulin Ratio 0.9 L Venous Blood Potassium 3.9 06/21/18 06/21/18 06:30 06:30 WBC 3.2 L RBC 3.36 L Hgb 8.7 L Hct 26.3 L MCV 78.3 L MCH 25.9 MCHC 33.1 RDW 18.9 H Plt Count 120 MPV 8.2 Neut % (Auto) 34.1 L Lymph % (Auto) 41.3 H Izard % (Auto) 19.2 H Eos % (Auto) 5.4 H Baso % (Auto) 0.0 Lymph # (Auto) 1.3 Izard # (Auto) 0.6 Eos # (Auto) 0.2 Baso # (Auto) 0.00 Absolute Neuts (auto) 1.08 L Neutrophils % (Manual) Lymphocytes % (Manual) Atypical Lymphs % Monocytes % (Manual) pO2 VBG pH VBG pCO2 VBG HCO3 VBG Total CO2 VBG O2 Sat (Calc) VBG Base Excess VBG Potassium Sodium 138 Chloride 106 Glucose Lactate FiO2 Potassium 2.8 L* D Carbon Dioxide 27 Anion Gap 8 L BUN < 2 L Creatinine 0.4 L Est GFR ( Amer) > 60 Est GFR (Non-Af Amer) > 60 Random Glucose 82 Calcium 7.7 L Phosphorus Magnesium Total Bilirubin 1.0 AST 33 ALT 43 Alkaline Phosphatase 142 H D Total Protein 5.5 L Albumin 2.5 L Globulin 2.9 Albumin/Globulin Ratio 0.9 L Venous Blood Potassium Assessment & Plan - Assessment and Plan (Free Text) Assessment: Colon cancer s/p partial colon resection as described above Ulcerative colitis Anemia Plan: - Liquid diet as tolerated - Continue to monitor H/H and transfuse as necessary - Follow up oncology recommendations - Suggest surgical consultation - Currently no plan for GI intervention. Patient will require additional outpatient follow up and consideration of ileostomy reversal with IPAA with Dr. Oswald when medically feasible given underlying UC. - Will continue to monitor patient clinical course
[2018-06-21] MEDS: Sodium Chloride 0.9% 1,000 ML IV SCH ×2 (10:12→21:40)
[2018-06-21] MEDS: Sucralfate 1 gm/10 ml Oral Susp UD PO SCH ×4 (10:12→21:39)
[2018-06-21] MEDS: Bismuth Subsalicylate 262 mg/15 ml Sus (240 ml) PO SCH (10:14)
--- NOTE | 2018-06-21 10:17 | CP.PCM.PN ---
<Justen Mathias - Last Filed: 06/21/18 10:26> Subjective - Date & Time of Evaluation Date of Evaluation: 06/21/18 Time of Evaluation: 06:00 - Subjective Subjective: Justen Mathias PGY2 Medicine Progress Note for Dr. Franklin Patient seen and examined bedside. Patient states abdominal pain has improved. Also states she had several episodes of diarrhea with small amounts of bright red blood per rectum. Denies any fever, chills, or any other complaints at this time. Objective - Vital Signs/Intake and Output Vital Signs (last 24 hours): Temp Pulse Resp BP Pulse Ox 98.6 F 98 H 18 99/63 L 99 06/21/18 08:14 06/21/18 08:14 06/21/18 08:14 06/21/18 08:14 06/21/18 08:14 Intake and Output: 06/21/18 06/21/18 06:59 18:59 Intake Total 240 Balance 240 - Medications Medications: Current Medications Benzocaine/Menthol (Cepacol Sore Throat) 1 arti MT Q2H PRN PRN Reason: Sore Throat Last Admin: 06/20/18 04:00 Dose: 1 arti Enoxaparin Sodium (Lovenox) 40 mg SC DAILY [facility]; Protocol Last Admin: 06/20/18 10:56 Dose: Not Given Sodium Chloride (Sodium Chloride 0.9%) 1,000 mls @ 100 mls/hr IV .Q10H [facility] Last Admin: 06/21/18 10:12 Dose: 100 mls/hr Potassium Chloride (Potassium Chloride 10 Meq/100 Ml) 10 meq in 100 mls @ 100 mls/hr IVPB Q2H [facility] Stop: 06/21/18 15:14 Last Admin: 06/21/18 10:12 Dose: 100 mls/hr Metoclopramide HCl (Reglan) 5 mg IVP Q6H PRN PRN Reason: Nausea/Vomiting Last Admin: 06/20/18 10:56 Dose: 5 mg Morphine Sulfate (Morphine) 2 mg IVP Q4H PRN PRN Reason: Pain, severe (8-10) Pantoprazole Sodium (Protonix Inj) 40 mg IVP BID [facility] Last Admin: 06/21/18 10:12 Dose: 40 mg Sucralfate (Carafate Oral Susp) 1 gm PO QID [facility] Last Admin: 06/21/18 10:12 Dose: 1 gm - Labs Labs: 06/21/18 06:30 06/21/18 06:30 PT 15.0 SECONDS (9.4-12.5) H 06/20/18 00:17 INR 1.35 06/20/18 00:17 APTT 35.4 Seconds (26.9-38.3) 06/20/18 00:17 - Constitutional Appears: Non-toxic, No Acute Distress - Head Exam Head Exam: ATRAUMATIC, NORMAL INSPECTION, NORMOCEPHALIC - Eye Exam Eye Exam: EOMI, Normal appearance - ENT Exam ENT Exam: Mucous Membranes Moist - Respiratory Exam Respiratory Exam: NORMAL BREATHING PATTERN - Cardiovascular Exam Cardiovascular Exam: REGULAR RHYTHM, +S1, +S2 - GI/Abdominal Exam GI & Abdominal Exam: Soft Additional comments: colostomy bag in place - Extremities Exam Extremities Exam: Full ROM. absent: Pedal Edema - Neurological Exam Neurological Exam: Alert, Oriented x3 - Skin Skin Exam: Warm Assessment and Plan - Assessment and Plan (Free Text) Assessment: Patient is a 47 year old female with a past medical history of colon cancer (s/p colectomy and colostomy) and HLD, presenting with generalized weakness for 2 weeks. Plan: Abdominal pain -improving -Likely 2/2 history of colon cancer vs multiple vomiting episodes vs UC chronic -abdominal US: dilated CBD in setting of cholecystectomy -Morphine 2mg Q4H PRN -Liquid diet, will advance if tolerated BRB per Stool -Hgb 8.7 -hold lovenox -repeat H/H, monitor -GI consulted, follow recs -likely from underlying UC -GI does not plan any intervention at this time Sinus tachycardia with QTc prolongation -HR 98 this AM -initial EKG: Sinus tachycardia @ 135. QTc: 555 -NS @ 100 mL/hr -Avoid medications that cause QT prolongation Nausea with vomiting -Likely 2/2 chemotherapy -Promethazine 25mg PO Q6H PRN -Cepacol PRN for sore throat Hypokalemia -K 2.8 -Replete as needed -Continue to monitor Prophylaxis: -SCD -GI: Protonix 40 IV BID Disposition: Discontinue home medications Zofran and Tramadol upon discharge as these medications cause QT prolongation. <Chuckie Franklin - Last Filed: 06/21/18 14:08> Objective - Vital Signs/Intake and Output Vital Signs (last 24 hours): Temp Pulse Resp BP Pulse Ox 98.6 F 98 H 18 99/63 L 99 06/21/18 08:14 06/21/18 08:14 06/21/18 08:14 06/21/18 08:14 06/21/18 08:14 Intake and Output: 06/21/18 06/21/18 06:59 18:59 Intake Total 240 Balance 240 - Medications Medications: Current Medications Benzocaine/Menthol (Cepacol Sore Throat) 1 arti MT Q2H PRN PRN Reason: Sore Throat Last Admin: 06/20/18 04:00 Dose: 1 arti Enoxaparin Sodium (Lovenox) 40 mg SC DAILY [facility]; Protocol Last Admin: 06/20/18 10:56 Dose: Not Given Sodium Chloride (Sodium Chloride 0.9%) 1,000 mls @ 100 mls/hr IV .Q10H [facility] Last Admin: 06/21/18 10:12 Dose: 100 mls/hr Potassium Chloride (Potassium Chloride 10 Meq/100 Ml) 10 meq in 100 mls @ 100 mls/hr IVPB Q2H [facility] Stop: 06/21/18 15:14 Last Admin: 06/21/18 13:28 Dose: 100 mls/hr Metoclopramide HCl (Reglan) 5 mg IVP Q6H PRN PRN Reason: Nausea/Vomiting Last Admin: 06/20/18 10:56 Dose: 5 mg Morphine Sulfate (Morphine) 2 mg IVP Q4H PRN PRN Reason: Pain, severe (8-10) Last Admin: 06/21/18 13:35 Dose: 2 mg Pantoprazole Sodium (Protonix Inj) 40 mg IVP BID [facility] Last Admin: 06/21/18 10:12 Dose: 40 mg Sucralfate (Carafate Oral Susp) 1 gm PO QID [facility] Last Admin: 06/21/18 13:28 Dose: 1 gm - Labs Labs: 06/21/18 06:30 06/21/18 06:30 PT 15.0 SECONDS (9.4-12.5) H 06/20/18 00:17 INR 1.35 06/20/18 00:17 APTT 35.4 Seconds (26.9-38.3) 06/20/18 00:17 Attending/Attestation - Attestation I have personally seen and examined this patient.: Yes I have fully participated in the care of the patient.: Yes I have reviewed all pertinent clinical information, including history, physical exam and plan: Yes Notes (Text): 06/21/18 14:03 Medical record note made by the resident after discussion with my direction and input after the patient was personally seen and examined by me. I have reviewed the chart and agree that the record accurately reflects by personal performance of the history, physical exam, data review, and medical decision-making, in the course for the patient. I have also personally directed the plan of care. 47 year old female with a past medical history of colon cancer (s/p colectomy and colostomy) and HLD, was admitted with intractable nausea and vomiting. She was found to have epigastric tenderness and hypokalemia. Patient was given IV hydration ,PPI and electrolyte were replaced. She is having increase out from Ileostomy. Hemoglobin has dropped to 8.7.There is no active bleeding. GI evaluation is appreciated.Nausea and vomiting has improved. Patient is tolerating liquid diet.We will monitor hemoglobin and hematocrit. Hypokalemia , replacement has been given, we will follow up electrolyte. LFT are improving. 06/21/18 14:08
[2018-06-21 14:07] LABS: CALCIUM 7.6 mg/dL (8.4-10.5); GFR NON-AFRICAN AMERICAN > 60
[2018-06-21 14:14] LABS: BLOOD UREA NITROGEN < 2 mg/dL (7-21)
[2018-06-21 17:15] LABS: HEMOGLOBIN 8.4 g/dL (12.0-16.0); MEAN CELL VOLUME 78.2 fl (80.0-105.0); MEAN CORPUSCULAR HEMOGLOBIN 26.2 pg (25.0-35.0); MEAN CORPUSCULAR HGB CONC 33.5 g/dl (31.0-37.0); MEAN PLATELET VOLUME 8.7 fl (7.0-11.0); RBC 3.21 10^6/uL (3.5-6.1); RED CELL DISTRIBUTION WIDTH 18.8 % (11.5-14.5); WHITE BLOOD COUNT 2.9 10^3/uL (4.5-11.0)
[2018-06-21 17:57] LABS: BASO # 0.01 K/mm3 (0.0-2.0); BASO % 0.3 % (0.0-3.0); EOS # 0.3 (0.0-0.7); EOS % 8.7 % (1.5-5.0); LYMPH # 1.3 (1.2-3.4); LYMPH % 43.9 % (22.0-35.0); MONO # 0.6 (0.1-0.6); MONO % 19.4 % (1.0-6.0)
[2018-06-22] MEDS: Morphine 2 mg/ml ISec IVP PRN ×6 (01:38→21:07)
[2018-06-22 01:54] LABS: HEMOGLOBIN 8.5 g/dL (12.0-16.0); MEAN CELL VOLUME 77.8 fl (80.0-105.0); MEAN CORPUSCULAR HEMOGLOBIN 26.2 pg (25.0-35.0); MEAN CORPUSCULAR HGB CONC 33.6 g/dl (31.0-37.0); MEAN PLATELET VOLUME 8.6 fl (7.0-11.0); RBC 3.25 10^6/uL (3.5-6.1); RED CELL DISTRIBUTION WIDTH 18.6 % (11.5-14.5); WHITE BLOOD COUNT 2.6 10^3/uL (4.5-11.0)
[2018-06-22 07:41] LABS: EOS # 0.3 (0.0-0.7); EOS % 10.2 % (1.5-5.0); HEMOGLOBIN 8.8 g/dL (12.0-16.0); MEAN CELL VOLUME 77.7 fl (80.0-105.0); MEAN CORPUSCULAR HEMOGLOBIN 25.8 pg (25.0-35.0); MEAN CORPUSCULAR HGB CONC 33.2 g/dl (31.0-37.0); MEAN PLATELET VOLUME 8.7 fl (7.0-11.0); MONO # 0.4 (0.1-0.6); MONO % 17.1 % (1.0-6.0); RBC 3.41 10^6/uL (3.5-6.1); RED CELL DISTRIBUTION WIDTH 18.8 % (11.5-14.5); WHITE BLOOD COUNT 2.5 10^3/uL (4.5-11.0)
[2018-06-22] MEDS: Sodium Chloride 0.9% 1,000 ML IV SCH (07:45)
[2018-06-22 08:16] LABS: ALB/GLOB RATIO 0.9 (1.1-1.8); ALBUMIN 2.6 g/dL (3.0-4.8); ALT/SGPT 28 U/L (7-56); AST/SGOT 21 U/L (14-36); BLOOD UREA NITROGEN < 2 mg/dL (7-21); CALCIUM 7.5 mg/dL (8.4-10.5); GFR NON-AFRICAN AMERICAN > 60
[2018-06-22] MEDS ORDERED: Magnesium Sulfate 1 gm in D5W 1 GM/100 ML BAG IVPB ONE (08:23)
[2018-06-22] MEDS ORDERED: Potassium Chl 40 mEq in D5-1/2 1,000 ML IV SCH (08:30)
[2018-06-22] MEDS ORDERED: Potassium Chloride 40 mEq/30 ml LIQ UD PO ONE (08:41)
--- NOTE | 2018-06-22 09:18 | CP.PCM.CON ---
<Дмитрий Jin - Last Filed: 06/22/18 09:57> History of Present Illness - History of Present Illness History of Present Illness: General Surgery note: Dr Ponce CC: Generalized weakness Surgical Consult Re: BRBPR HPI: Patient is a 47F w/ PMH of Ulcerative Colitis and Adenocarcinoma of the colon (s/p colectomy and [place] 01/2018 w/ [place] Oswald [place] [facility] [place]. Pt presents with complaint of generalized weakness for 2 weeks. Found to have mild anemia and transfused. HgB has been stable for 24 hours. Patient states that she is currently on chemotherapy and her last dose was 2 w eeks ago. Has been mildly anorexic due to nausea with some intermittent emesis daily. Patient is taking Capecitabine daily and states that the medication is making her N/V symptoms worse. She denies hematemesis, fevers, chills, night sweats, chest pain, shortness of breath, diarrhea, or urinary symptoms. Nurses noted a single episode of BRBPR. PMHx: Ulcerative Colitis, Colon cancer s/p colectomy and ileostomy (01/2018), HLD PSH: Colectomy, ileostomy, , cholecystectomy, tubal ligation Allergies: Penicillin PMD: Dr. Lazar Oncologist: Dr. Diogo Teixeira Review of Systems - Review of Systems All systems: reviewed and no additional remarkable complaints except (as per hpi) Past Patient History - Infectious Disease Hx of Infectious Diseases: None - Past Medical History & Family History Past Medical History?: Yes - Past Social History Smoking Status: Never Smoked - CARDIAC Hx Cardiac Disorders: Yes - PULMONARY Hx Respiratory Disorders: No - NEUROLOGICAL Hx Neurological Disorder: No - HEENT Hx HEENT Problems: No - RENAL Hx Chronic Kidney Disease: No - ENDOCRINE/METABOLIC Hx Endocrine Disorders: No - HEMATOLOGICAL/ONCOLOGICAL Hx Blood Disorders: No - INTEGUMENTARY Hx Dermatological Problems: No - MUSCULOSKELETAL/RHEUMATOLOGICAL Hx Musculoskeletal Disorders: No - GASTROINTESTINAL Hx Gastrointestinal Disorders: Yes ([place]HEA) Hx Gall Bladder Disease: Yes - GENITOURINARY/GYNECOLOGICAL Hx Genitourinary Disorders: No - PSYCHIATRIC Hx Psychophysiologic Disorder: No Hx Substance Use: No - SURGICAL HISTORY Hx Section: Yes Hx Cholecystectomy: Yes Hx Tonsillectomy: Yes Hx Tubal Ligation: Yes Other/Comment: tonsilectomy. x1 - ANESTHESIA Hx Malignant Hyperthermia: No Meds Home Medications: Home Medication List Medication Instructions Recorded Confirmed Type Pantoprazole Sodium [Protonix] 40 mg PO DAILY #14 ect 06/23/18 Rx Sucralfate [Carafate Oral Susp] 1 gm PO BID 14 Days #28 udc 06/23/18 Rx Allergies/Adverse Reactions: Allergies Allergy/AdvReac Type Severity Reaction Status Date / Time Penicillins Allergy RASH Verified 06/20/18 00:06 - Medications Medications: Current Medications Benzocaine/Menthol (Cepacol Sore Throat) 1 arti MT Q2H PRN PRN Reason: Sore Throat Last Admin: 06/20/18 04:00 Dose: 1 arti Enoxaparin Sodium (Lovenox) 40 mg SC DAILY [facility]; Protocol Last Admin: 06/20/18 10:56 Dose: Not Given Magnesium Sulfate/Dextrose (Magnesium Sulfate 1 Gm/100 Ml D5w) 1 gm in 100 mls @ 100 mls/hr IVPB ONCE ONE Stop: 06/22/18 09:22 Potassium Chloride/Dextrose/Sod Cl (Potassium Chl 40 Meq In D5-1/2ns) 1,000 mls @ 80 mls/hr IV .[id number] [facility] Stop: 06/22/18 20:59 Potassium Chloride 20 meq/ (Sodium Chloride) 1,010 mls @ 100 mls/hr IV .Q10H6M [facility] Metoclopramide HCl (Reglan) 5 mg IVP Q6H PRN PRN Reason: Nausea/Vomiting Last Admin: 06/20/18 10:56 Dose: 5 mg Morphine Sulfate (Morphine) 2 mg IVP Q4H PRN PRN Reason: Pain, severe (8-10) Last Admin: 06/22/18 05:34 Dose: 2 mg Pantoprazole Sodium (Protonix Inj) 40 mg IVP BID [facility] Last Admin: 06/21/18 17:28 Dose: 40 mg Sucralfate (Carafate Oral Susp) 1 gm PO QID [facility] Last Admin: 06/21/18 21:39 Dose: 1 gm Physical Exam - Constitutional Appears: Non-toxic, No Acute Distress - Head Exam Head Exam: NORMAL INSPECTION - Eye Exam Eye Exam: Normal appearance - ENT Exam ENT Exam: Mucous Membranes Dry - Respiratory Exam Respiratory Exam: absent: Respiratory Distress - Cardiovascular Exam Cardiovascular Exam: REGULAR RHYTHM - GI/Abdominal Exam GI & Abdominal Exam: Soft, Tenderness (suprapubic). absent: Distended Additional comments: ileostomy functioning - Extremities Exam Extremities exam: Negative for: pedal edema - Neurological Exam Neurological exam: Alert, Oriented x3 - Psychiatric Exam Psychiatric exam: Normal Affect, Normal Mood Results - Vital Signs Recent Vital Signs: Last Vital Signs Temp 99.2 F 06/22/18 08:32 Pulse 95 H 06/22/18 08:32 Resp 18 06/22/18 08:32 BP 98/65 L 06/22/18 08:32 Pulse Ox 99 06/22/18 08:32 - Labs Result Diagrams: 06/22/18 07:05 06/22/18 07:05 Labs: Laboratory Results - last 24 hr 06/21/18 06/21/18 06/22/18 13:34 17:00 01:40 WBC 2.9 L 2.6 L RBC 3.21 L 3.25 L Hgb 8.4 L 8.5 L Hct 25.1 L 25.3 L MCV 78.2 L 77.8 L MCH 26.2 26.2 MCHC 33.5 33.6 RDW 18.8 H 18.6 H Plt Count 109 L 112 L MPV 8.7 8.6 Neut % (Auto) 27.7 L Lymph % (Auto) 43.9 H [place] % (Auto) 19.4 H Eos % (Auto) 8.7 H Baso % (Auto) 0.3 Lymph # (Auto) 1.3 [place] # (Auto) 0.6 Eos # (Auto) 0.3 Baso # (Auto) 0.01 Absolute Neuts (auto) 0.80 L Sodium 137 Potassium 3.0 L Chloride 106 Carbon Dioxide 26 Anion Gap 8 L BUN < 2 L Creatinine 0.4 L Est GFR ( Amer) > 60 Est GFR (Non-Af Amer) > 60 Random Glucose 94 Calcium 7.6 L Total Bilirubin AST ALT Alkaline Phosphatase Total Protein Albumin Globulin Albumin/Globulin Ratio 06/22/18 06/22/18 07:05 07:05 WBC 2.5 L RBC 3.41 L Hgb 8.8 L Hct 26.5 L MCV 77.7 L MCH 25.8 MCHC 33.2 RDW 18.8 H Plt Count 123 MPV 8.7 Neut % (Auto) 33.7 L Lymph % (Auto) 39.0 H [place] % (Auto) 17.1 H Eos % (Auto) 10.2 H Baso % (Auto) 0.0 Lymph # (Auto) 1.0 L [place] # (Auto) 0.4 Eos # (Auto) 0.3 Baso # (Auto) 0.00 Absolute Neuts (auto) 0.83 L Sodium 138 Potassium 2.5 L* Chloride 104 Carbon Dioxide 27 Anion Gap 10 BUN < 2 L Creatinine 0.3 L Est GFR ( Amer) > 60 Est GFR (Non-Af Amer) > 60 Random Glucose 81 Calcium 7.5 L Total Bilirubin 1.0 AST 21 ALT 28 Alkaline Phosphatase 136 H Total Protein 5.7 L Albumin 2.6 L Globulin 3.0 Albumin/Globulin Ratio 0.9 L Assessment & Plan - Assessment and Plan (Free Text) Assessment: 47F w/ lower GI bleed s/p partial colectomy w/ ileostomy for UC w/ adenocarcinoma Plan: adv diet as per GI tranfuse PRN - HgB currently stable ~ 48 hours pt has follow up with surgeon next week no immediate intervention planned please reconsult if necessary d/w Dr Kris Jin, PGY4 <Av Ponce B - Last Filed: 06/23/18 15:17> Meds - Medications Medications: Current Medications Benzocaine/Menthol (Cepacol Sore Throat) 1 arti MT Q2H PRN PRN Reason: Sore Throat Last Admin: 06/20/18 04:00 Dose: 1 arti Enoxaparin Sodium (Lovenox) 40 mg SC DAILY [facility]; Protocol Last Admin: 06/20/18 10:56 Dose: Not Given Metoclopramide HCl (Reglan) 5 mg IVP Q6H PRN PRN Reason: Nausea/Vomiting Last Admin: 06/20/18 10:56 Dose: 5 mg Oxycodone/Acetaminophen (Percocet 5/325 Mg Tab) 1 tab PO Q6H PRN PRN Reason: Pain, severe (8-10) Stop: 06/26/18 10:30 Last Admin: 06/23/18 14:04 Dose: 1 tab Pantoprazole Sodium (Protonix Ec Tab) 40 mg PO BID [facility] Last Admin: 06/23/18 10:10 Dose: 40 mg Sucralfate (Carafate Oral Susp) 1 gm PO QID [facility] Last Admin: 06/23/18 14:04 Dose: 1 gm Results - Vital Signs Recent Vital Signs: Last Vital Signs Temp 99.5 F 06/23/18 08:05 Pulse 98 H 06/23/18 08:05 Resp 18 06/23/18 08:05 BP 92/59 L 06/23/18 08:05 Pulse Ox 100 06/23/18 08:05 - Labs Result Diagrams: 06/23/18 06:00 06/23/18 06:00 Labs: Laboratory Results - last 24 hr 06/22/18 06/22/18 06/23/18 22:30 22:30 06:00 WBC 3.2 L D RBC 3.50 Hgb 8.9 L 9.1 L Hct 26.5 L 27.2 L MCV 77.7 L MCH 26.0 MCHC 33.5 RDW 19.0 H Plt Count 173 MPV 8.8 Neut % (Auto) 18.2 L Lymph % (Auto) 33.0 [place] % (Auto) 38.0 H Eos % (Auto) 10.5 H Baso % (Auto) 0.3 Lymph # (Auto) 1.1 L [place] # (Auto) 1.2 H Eos # (Auto) 0.3 Baso # (Auto) 0.01 Absolute Neuts (auto) 0.59 L Sodium 135 Potassium 3.2 L Chloride 102 Carbon Dioxide 29 Anion Gap 7 L BUN < 2 L Creatinine 0.3 L Est GFR ( Amer) > 60 Est GFR (Non-Af Amer) > 60 Random Glucose 102 Calcium 7.5 L Magnesium Total Bilirubin AST ALT Alkaline Phosphatase Total Protein Albumin Globulin Albumin/Globulin Ratio 06/23/18 06:00 WBC RBC Hgb Hct MCV MCH MCHC RDW Plt Count MPV Neut % (Auto) Lymph % (Auto) [place] % (Auto) Eos % (Auto) Baso % (Auto) Lymph # (Auto) [place] # (Auto) Eos # (Auto) Baso # (Auto) Absolute Neuts (auto) Sodium 135 Potassium 3.5 L Chloride 102 Carbon Dioxide 29 Anion Gap 7 L BUN < 2 L Creatinine 0.3 L Est GFR ( Amer) > 60 Est GFR (Non-Af Amer) > 60 Random Glucose 92 Calcium 7.7 L Magnesium 1.5 L Total Bilirubin 0.8 AST 26 ALT 31 Alkaline Phosphatase 158 H Total Protein 5.7 L Albumin 2.6 L Globulin 3.1 Albumin/Globulin Ratio 0.8 L Attending/Attestation - Attestation I have personally seen and examined this patient.: Yes I have fully participated in the care of the patient.: Yes I have reviewed all pertinent clinical information: Yes Notes (Text): Pt was seen and examined at bedside Agree with above note and assessment Pt with weakness and anemia on chemotherapy One episode of bloody BM, subsided afterwards Pt has ileostomy and functioning well, No blood in ileostomy C.w current mx Pt does not need any surgical intervention at present Plan d.w pt in detail.
[2018-06-22 09:35] LABS: URINE BILIRUBIN NEGATIVE (NEGATIVE); URINE BLOOD MODERATE (NEGATIVE); URINE GLUCOSE (UA) NEGATIVE (NEGATIVE); URINE LEUKOCYTE ESTERASE NEGATIVE Leu/uL (NEGATIVE); URINE PROTEIN NEGATIVE mg/dL (<30 mg/dL); URINE UROBILINOGEN 0.2 E.U./dL (<1 E.U./dL)
[2018-06-22] MEDS: Sucralfate 1 gm/10 ml Oral Susp UD PO SCH ×4 (09:35→21:07)
[2018-06-22 09:36] LABS: URINE APPEARANCE CLEAR (CLEAR); URINE COLOR YELLOW (YELLOW)
[2018-06-22 09:39] LABS: URINE RBC 20 - 25 /hpf (0-2)
[2018-06-22 09:40] LABS: URINE BACTERIA MANY /hpf
--- NOTE | 2018-06-22 09:56 | CP.PCM.PN ---
Subjective - Date & Time of Evaluation Date of Evaluation: 06/22/18 Time of Evaluation: 09:49 - Subjective Subjective: Patient seen and examined, resting in bed comfortably. No acute events overnight, she reports ongoing abdominal pain in suprapubic region which she attributes to beginning of menstrual cycle. She denies nausea, vomiting, fever/chills, or further episodes of rectal bleeding. Tolerating PO liquids without difficulty. 12 point review of systems performed, negative aside from mentioned above. Objective - Vital Signs/Intake and Output Vital Signs (last 24 hours): Temp Pulse Resp BP Pulse Ox 99.2 F 95 H 18 98/65 L 99 06/22/18 08:32 06/22/18 08:32 06/22/18 08:32 06/22/18 08:32 06/22/18 08:32 - Medications Medications: Current Medications Benzocaine/Menthol (Cepacol Sore Throat) 1 arti MT Q2H PRN PRN Reason: Sore Throat Last Admin: 06/20/18 04:00 Dose: 1 arti Enoxaparin Sodium (Lovenox) 40 mg SC DAILY [facility]; Protocol Last Admin: 06/20/18 10:56 Dose: Not Given Potassium Chloride/Dextrose/Sod Cl (Potassium Chl 40 Meq In D5-1/2ns) 1,000 mls @ 80 mls/hr IV .[id number] [facility] Stop: 06/22/18 20:59 Last Admin: 06/22/18 09:34 Dose: 80 mls/hr Metoclopramide HCl (Reglan) 5 mg IVP Q6H PRN PRN Reason: Nausea/Vomiting Last Admin: 06/20/18 10:56 Dose: 5 mg Morphine Sulfate (Morphine) 2 mg IVP Q4H PRN PRN Reason: Pain, severe (8-10) Last Admin: 06/22/18 09:34 Dose: 2 mg Pantoprazole Sodium (Protonix Inj) 40 mg IVP BID [facility] Last Admin: 06/22/18 09:36 Dose: 40 mg Sucralfate (Carafate Oral Susp) 1 gm PO QID [facility] Last Admin: 06/22/18 09:35 Dose: 1 gm - Labs Labs: 06/22/18 07:05 06/22/18 07:05 PT 15.0 SECONDS (9.4-12.5) H 06/20/18 00:17 INR 1.35 06/20/18 00:17 APTT 35.4 Seconds (26.9-38.3) 06/20/18 00:17 - Constitutional Appears: Non-toxic, No Acute Distress - Head Exam Head Exam: NORMAL INSPECTION - Eye Exam Eye Exam: EOMI, Normal appearance - ENT Exam ENT Exam: Mucous Membranes Moist - Respiratory Exam Respiratory Exam: Clear to Ausculation Bilateral - Cardiovascular Exam Cardiovascular Exam: +S1, +S2 - GI/Abdominal Exam GI & Abdominal Exam: Soft, Tenderness, Normal Bowel Sounds Additional comments: epigastric and suprapubic tenderness to palpation, no rebound/guarding RLQ ostomy with green liquid stool in bag - Extremities Exam Extremities Exam: Normal Inspection - Skin Skin Exam: Dry, Intact, Normal Color, Warm Assessment and Plan - Assessment and Plan (Free Text) Assessment: History of colon cancer UC Pancytopenia in setting of chemotherapy Plan: - Advance diet as tolerated - H/H stable, continue to monitor - Follow up hematology and surgical recommendations - Patient has appointments with Dr. Teixeira and Darek next week as outpatient for follow up - No further planned GI intervention at this time, will sign off case. Please reconsult as necessary, thank you.
--- NOTE | 2018-06-22 11:43 | CP.PCM.PN ---
<Jonathan Lopes - Last Filed: 06/22/18 11:39> Subjective - Date & Time of Evaluation Date of Evaluation: 06/22/18 Time of Evaluation: 08:00 - Subjective Subjective: Jonathan Lopes PGY1 Medicine Progress Note for Dr. Franklin Patient seen and examined bedside. Patient still has epigastric abdominal pain. This morning, she had no episodes of bloody bowel movements. She does however endorse some suprapubic pain. Denies fever, chills, nausea, vomiting, cp, sob. A full 12 point ROS was conducted and unremarkable except as stated above. Objective - Vital Signs/Intake and Output Vital Signs (last 24 hours): Temp Pulse Resp BP Pulse Ox 99.2 F 95 H 18 98/65 L 99 06/22/18 08:32 06/22/18 08:32 06/22/18 08:32 06/22/18 08:32 06/22/18 08:32 - Medications Medications: Current Medications Benzocaine/Menthol (Cepacol Sore Throat) 1 arti MT Q2H PRN PRN Reason: Sore Throat Last Admin: 06/20/18 04:00 Dose: 1 arti Enoxaparin Sodium (Lovenox) 40 mg SC DAILY [facility]; Protocol Last Admin: 06/20/18 10:56 Dose: Not Given Potassium Chloride/Dextrose/Sod Cl (Potassium Chl 40 Meq In D5-1/2ns) 1,000 mls @ 80 mls/hr IV .[id number] [facility] Stop: 06/22/18 20:59 Last Admin: 06/22/18 09:34 Dose: 80 mls/hr Metoclopramide HCl (Reglan) 5 mg IVP Q6H PRN PRN Reason: Nausea/Vomiting Last Admin: 06/20/18 10:56 Dose: 5 mg Morphine Sulfate (Morphine) 2 mg IVP Q4H PRN PRN Reason: Pain, severe (8-10) Last Admin: 06/22/18 09:34 Dose: 2 mg Pantoprazole Sodium (Protonix Inj) 40 mg IVP BID [facility] Last Admin: 06/22/18 09:36 Dose: 40 mg Sucralfate (Carafate Oral Susp) 1 gm PO QID [facility] Last Admin: 06/22/18 09:35 Dose: 1 gm - Labs Labs: 06/22/18 07:05 06/22/18 07:05 PT 15.0 SECONDS (9.4-12.5) H 06/20/18 00:17 INR 1.35 06/20/18 00:17 APTT 35.4 Seconds (26.9-38.3) 06/20/18 00:17 - Constitutional Appears: Non-toxic, No Acute Distress - Head Exam Head Exam: ATRAUMATIC, NORMAL INSPECTION, NORMOCEPHALIC - Eye Exam Eye Exam: EOMI, Normal appearance - ENT Exam ENT Exam: Mucous Membranes Moist - Respiratory Exam Respiratory Exam: NORMAL BREATHING PATTERN - Cardiovascular Exam Cardiovascular Exam: REGULAR RHYTHM, +S1, +S2 - GI/Abdominal Exam GI & Abdominal Exam: Soft. Tenderness at the epigastric region. Additional comments: colostomy bag in place - Extremities Exam Extremities Exam: Full ROM. absent: Pedal Edema - Neurological Exam Neurological Exam: Alert, Oriented x3 - Skin Skin Exam: Warm Assessment and Plan - Assessment and Plan (Free Text) Assessment: Patient is a 47 year old female with a past medical history of colon cancer (s/p colectomy and colostomy) and HLD, presented with generalized weakness for 2 weeks. Patient admitted for abdominal pain and bloody bowel movements. Plan: Epigastric Abdominal pain with Anemia in the setting of Colon Cancer vs Chronic Ulcerative Colitis - BRB noted in ostomy bag - Hgb improved to 8.8 this morning, previous 8.5; continue to monitor at this time. No signs of overt bleeding. - Transfuse if Hgb < 8 - Lovenox held - Surgery placed on consult for possible ileostomy reversal. Follow up recs. - GI on consult. Recs appreciated. - Abdominal US: dilated CBD in setting of cholecystectomy - c/w Morphine 2mg Q4H PRN - c/w PTX 40mg IV BID - Altered GI/Hepatic Diet, will advance as tolerated - Hx colon cancer and chronic UC Electrolyte Abnormalities 2/2 GI Losses - Hypokalemia - K 2.5 this morning. Will replete with K-riders x2 initially, then add Potas sium to IVF; in addition will give PO Potassium solution - Will follow up repeat labs - Replete lytes as needed - Continue to monitor Neutropenic may be 2/2 chemotherapy - neutropenic precautions - Not febrile at this time but will continue to monitor closely for fevers - BCx and UCx ordered since patient had some suprapubic pain - Heme/onc on consult. Nausea with vomiting 2/2 Chemotherapy - improving - c/w Reglan prn - c/w Cepacol PRN for sore throat Sinus tachycardia with QTc prolongation - monitor - EKG on admission: Sinus tachycardia @ 135. QTc: 555 - Avoid medications that cause QT prolongation ppx: -SCD -GI: Protonix 40 IV BID Dispo: Continue to monitor patient on remote tele at this time. Replete electrolyte abnormalities. Further recs from surgery and GI. Case was discussed and reviewed with Attending Physician, Dr. Franklin <Chuckie Franklin - Last Filed: 06/22/18 12:57> Objective - Vital Signs/Intake and Output Vital Signs (last 24 hours): Temp Pulse Resp BP Pulse Ox 99.2 F 95 H 18 98/65 L 99 06/22/18 08:32 06/22/18 08:32 06/22/18 08:32 06/22/18 08:32 06/22/18 08:32 - Medications Medications: Current Medications Benzocaine/Menthol (Cepacol Sore Throat) 1 arti MT Q2H PRN PRN Reason: Sore Throat Last Admin: 06/20/18 04:00 Dose: 1 arti Enoxaparin Sodium (Lovenox) 40 mg SC DAILY [facility]; Protocol Last Admin: 06/20/18 10:56 Dose: Not Given Potassium Chloride/Dextrose/Sod Cl (Potassium Chl 40 Meq In D5-1/2ns) 1,000 mls @ 80 mls/hr IV .[id number] [facility] Stop: 06/22/18 20:59 Last Admin: 06/22/18 09:34 Dose: 80 mls/hr Potassium Chloride (Potassium Chloride 20 Meq/100 Ml) 20 meq in 100 mls @ 50 mls/hr IVPB Q2H [facility] Stop: 06/22/18 16:59 Metoclopramide HCl (Reglan) 5 mg IVP Q6H PRN PRN Reason: Nausea/Vomiting Last Admin: 06/20/18 10:56 Dose: 5 mg Morphine Sulfate (Morphine) 2 mg IVP Q4H PRN PRN Reason: Pain, severe (8-10) Last Admin: 06/22/18 09:34 Dose: 2 mg Pantoprazole Sodium (Protonix Inj) 40 mg IVP BID [facility] Last Admin: 06/22/18 09:36 Dose: 40 mg Sucralfate (Carafate Oral Susp) 1 gm PO QID [facility] Last Admin: 06/22/18 09:35 Dose: 1 gm - Labs Labs: 06/22/18 07:05 06/22/18 07:05 PT 15.0 SECONDS (9.4-12.5) H 06/20/18 00:17 INR 1.35 06/20/18 00:17 APTT 35.4 Seconds (26.9-38.3) 06/20/18 00:17 Attending/Attestation - Attestation I have personally seen and examined this patient.: Yes I have fully participated in the care of the patient.: Yes I have reviewed all pertinent clinical information, including history, physical exam and plan: Yes Notes (Text): 06/22/18 12:55 Medical record note made by the resident after discussion with my direction and input after the patient was personally seen and examined by me. I have reviewed the chart and agree that the record accurately reflects by personal performance of the history, physical exam, data review, and medical decision-making, in the course for the patient. I have also personally directed the plan of care. 47 year old female with a past medical history of colon cancer (s/p colectomy and colostomy) and HLD, was admitted with intractable nausea and vomiting. She was found to have epigastric tenderness and hypokalemia. Patient was given IV hydration ,PPI and electrolyte were replaced. She is having increase out from Ileostomy. Hemoglobin has dropped to 8.7 but stable since then.There is no active bleeding. GI evaluation is appreciated.Nausea and vomiting has improved.Diet is advanced today. .We will monitor hemoglobin and hematocrit. Hypokalemia , replacement has been given, we will follow up electrolyte. LFT are improving. Patient has Neutropenia secondary to chemotherapy.Patient is afebrile.We will continue monitoring.
[2018-06-22 23:05] LABS: HEMOGLOBIN 8.9 g/dL (12.0-16.0)
[2018-06-22 23:22] LABS: BLOOD UREA NITROGEN < 2 mg/dL (7-21); CALCIUM 7.5 mg/dL (8.4-10.5); GFR NON-AFRICAN AMERICAN > 60
[2018-06-22] MEDS ORDERED: Potassium Chloride 40 mEq/30 ml LIQ UD PO STA (23:57)
[2018-06-23] MEDS: Morphine 2 mg/ml ISec IVP PRN ×3 (01:05→10:10)
[2018-06-23 06:38] LABS: BASO # 0.01 K/mm3 (0.0-2.0); BASO % 0.3 % (0.0-3.0); EOS # 0.3 (0.0-0.7); EOS % 10.5 % (1.5-5.0); HEMOGLOBIN 9.1 g/dL (12.0-16.0); LYMPH # 1.1 (1.2-3.4); MEAN CELL VOLUME 77.7 fl (80.0-105.0); MEAN CORPUSCULAR HGB CONC 33.5 g/dl (31.0-37.0); MEAN PLATELET VOLUME 8.8 fl (7.0-11.0); MONO # 1.2 (0.1-0.6); RBC 3.5 10^6/uL (3.5-6.1); WHITE BLOOD COUNT 3.2 10^3/uL (4.5-11.0)
[2018-06-23 07:21] LABS: ALB/GLOB RATIO 0.8 (1.1-1.8); ALBUMIN 2.6 g/dL (3.0-4.8); ALT/SGPT 31 U/L (7-56); AST/SGOT 26 U/L (14-36); BLOOD UREA NITROGEN < 2 mg/dL (7-21); CALCIUM 7.7 mg/dL (8.4-10.5); GFR NON-AFRICAN AMERICAN > 60
[2018-06-23] MEDS: Sucralfate 1 gm/10 ml Oral Susp UD PO SCH ×4 (10:10→21:25)
[2018-06-23] MEDS: Pantoprazole 40 mg EC Tab PO SCH ×2 (10:10→18:24)
[2018-06-23] MEDS: Oxycodone/Acetaminophen 5/325 mg Tab PO PRN ×2 (14:04→20:30)
--- NOTE | 2018-06-23 14:08 | CP.PCM.PN ---
<Chris Lemons - Last Filed: 06/23/18 14:04> Subjective - Date & Time of Evaluation Date of Evaluation: 06/23/18 Time of Evaluation: 14:04 - Subjective Subjective: Chris Lemons, PGY-1, Internal Medicine Progress Note for Dr. Lucas Patient seen and evaluated at bedside. Patient had no acute overnight events. Patient reports improved dysuria, no hematuria, and overflow stool per rectum but denies any blood per rectum. She reports green and black stool in her ileostomy. She denies fever, chills, nausea, vomiting, chest pain, and shortness of breath. 12-point ROS was unremarkable except for what was mentioned above. Objective - Vital Signs/Intake and Output Vital Signs (last 24 hours): Temp Pulse Resp BP Pulse Ox 99.5 F 98 H 18 92/59 L 100 06/23/18 08:05 06/23/18 08:05 06/23/18 08:05 06/23/18 08:05 06/23/18 08:05 Intake and Output: 06/23/18 06/23/18 06:59 18:59 Intake Total 780 Output Total 1650 Balance -870 - Medications Medications: Current Medications Benzocaine/Menthol (Cepacol Sore Throat) 1 arti MT Q2H PRN PRN Reason: Sore Throat Last Admin: 06/20/18 04:00 Dose: 1 arti Enoxaparin Sodium (Lovenox) 40 mg SC DAILY [facility]; Protocol Last Admin: 06/20/18 10:56 Dose: Not Given Metoclopramide HCl (Reglan) 5 mg IVP Q6H PRN PRN Reason: Nausea/Vomiting Last Admin: 06/20/18 10:56 Dose: 5 mg Oxycodone/Acetaminophen (Percocet 5/325 Mg Tab) 1 tab PO Q6H PRN PRN Reason: Pain, severe (8-10) Stop: 06/26/18 10:30 Pantoprazole Sodium (Protonix Ec Tab) 40 mg PO BID [facility] Last Admin: 06/23/18 10:10 Dose: 40 mg Sucralfate (Carafate Oral Susp) 1 gm PO QID [facility] Last Admin: 06/23/18 10:10 Dose: 1 gm - Labs Labs: 06/23/18 06:00 06/23/18 06:00 PT 15.0 SECONDS (9.4-12.5) H 06/20/18 00:17 INR 1.35 06/20/18 00:17 APTT 35.4 Seconds (26.9-38.3) 06/20/18 00:17 - Constitutional Appears: Well, Non-toxic, No Acute Distress - Head Exam Head Exam: ATRAUMATIC, NORMAL INSPECTION, NORMOCEPHALIC - Eye Exam Eye Exam: EOMI Pupil Exam: NORMAL ACCOMODATION - ENT Exam ENT Exam: Mucous Membranes Moist - Neck Exam Neck Exam: Full ROM - Respiratory Exam Respiratory Exam: Clear to Ausculation Bilateral, NORMAL BREATHING PATTERN. absent: Rales, Rhonchi, Wheezes - Cardiovascular Exam Cardiovascular Exam: REGULAR RHYTHM, RRR, +S1, +S2. absent: Clicks, Gallop, Murmur - GI/Abdominal Exam GI & Abdominal Exam: Soft, Normal Bowel Sounds. absent: Distended, Firm, G uarding, Tenderness Additional comments: ileostomy intact on right side - Extremities Exam Extremities Exam: Full ROM, Normal Capillary Refill, Normal Inspection - Neurological Exam Neurological Exam: Alert, Awake, CN II-XII Intact, Oriented x3 - Psychiatric Exam Psychiatric exam: Normal Affect, Normal Mood - Skin Skin Exam: Dry, Intact, Normal Color Assessment and Plan - Assessment and Plan (Free Text) Assessment: 47 year old female with a past medical history of colon cancer (s/p colectomy and colostomy) and HLD, presented with generalized weakness for 2 weeks. Patient was admitted for abdominal pain and bloody bowel movements. Plan: Epigastric Abdominal pain with Anemia in the setting of Colon Cancer vs Chronic Ulcerative Colitis - Patient has history of colon cancer and chronic UC - No bloody BM today - Abdominal US: dilated CBD in setting of cholecystectomy - Hgb improved to 9.1 this morning, previous 8.9; continue to monitor at this time. No signs of overt bleeding. - Transfuse if Hgb < 8 - Lovenox held - Stopped morphine. - Started percocet 5/325 Q6PRN for pain - Continue PTX 40mg PO BID - Continue Altered GI/Hepatic Diet - As per Surgery, no plans for ileostomy reversal at this time. Will consider reversal outpatient. - As per GI, no plans for any acute GI intervention. GI has signed off. Colon cancer -Patient was initially on capecitabine but as per Heme/Onc, will hold for now until she follows up outpatient. Hypokalemia likely 2/2 to GI lossesa - Replete as necessary Neutropenic may be 2/2 chemotherapy - Neutropenic precautions. - ANC reduced to 590 - Afebrile at this time but will continue to monitor closely for fevers - BCx negative from 5/5 - UCx positive for Corynebacterium likely contaminate - Heme/onc on consult, who recommends outpatient follow up Nausea with vomiting 2/2 Chemotherapy - resolved - Continue with Reglan PRN for nausea/vomiting - Continue with Cepacol PRN for sore throat Sinus tachycardia with QTc prolongation - EKG on admission: Sinus tachycardia @ 135. QTc: 555 - Avoid medications that cause QT prolongation - Continue to monitor Ppx: -SCD -GI: Protonix 40 PO BID Case was discussed with Dr. Lucas. <Suyapa Lucas - Last Filed: 06/23/18 14:34> Objective - Vital Signs/Intake and Output Vital Signs (last 24 hours): Temp Pulse Resp BP Pulse Ox 99.5 F 98 H 18 92/59 L 100 06/23/18 08:05 06/23/18 08:05 06/23/18 08:05 06/23/18 08:05 06/23/18 08:05 Intake and Output: 06/23/18 06/23/18 06:59 18:59 Intake Total 780 Output Total 1650 Balance -870 - Medications Medications: Current Medications Benzocaine/Menthol (Cepacol Sore Throat) 1 arti MT Q2H PRN PRN Reason: Sore Throat Last Admin: 06/20/18 04:00 Dose: 1 arti Enoxaparin Sodium (Lovenox) 40 mg SC DAILY [facility]; Protocol Last Admin: 06/20/18 10:56 Dose: Not Given Metoclopramide HCl (Reglan) 5 mg IVP Q6H PRN PRN Reason: Nausea/Vomiting Last Admin: 06/20/18 10:56 Dose: 5 mg Oxycodone/Acetaminophen (Percocet 5/325 Mg Tab) 1 tab PO Q6H PRN PRN Reason: Pain, severe (8-10) Stop: 06/26/18 10:30 Last Admin: 06/23/18 14:04 Dose: 1 tab Pantoprazole Sodium (Protonix Ec Tab) 40 mg PO BID [facility] Last Admin: 06/23/18 10:10 Dose: 40 mg Sucralfate (Carafate Oral Susp) 1 gm PO QID [facility] Last Admin: 06/23/18 14:04 Dose: 1 gm - Labs Labs: 06/23/18 06:00 06/23/18 06:00 PT 15.0 SECONDS (9.4-12.5) H 06/20/18 00:17 INR 1.35 06/20/18 00:17 APTT 35.4 Seconds (26.9-38.3) 06/20/18 00:17 Attending/Attestation - Attestation I have personally seen and examined this patient.: Yes I have fully participated in the care of the patient.: Yes I have reviewed all pertinent clinical information, including history, physical exam and plan: Yes Notes (Text): 06/23/18 14:27 47 year old female with past medical history of colon cancer s/p colectomy s/p colostomy who presented with intractable nausea, vomiting with epigastric pain and anemia. She was started on iv fluids and protonix. She was on carafate. Her symptoms improved. Her hemoglobin remains stable. GI and surgery have signed off. Her diet was advanced which she is tolerating. Patient is noted to have neutropenia, likely secondary to chemotherapy. Will monitor closely and follow up with hematology recommendations. Will replete and repeat lytes (potassium, magnesium). LFTs have improved. Patient reports generalized weakness, stating she is not ready to go home. PT follow up requested to assess for possible ERYN vs HWS. Suyapa Lucas MD Hospitalist.
--- NOTE | 2018-06-23 22:49 | CP.PCM.CON ---
History of Present Illness - History of Present Illness History of Present Illness: 47 year old female with a history of of ulcerative colitis, stage III colon cancer s/p colectomy on adjuvant chemotherapy (XELOX), admitted with weakness, nausea/vomiting, and dehydration. The patient received chemotherapy about 2 wee ks ago. She notes to continued N/V and poor PO intake. She became so weak that her son called 911 and she was brought to the hospital. She is currently on antiemetics and IV fluids and notes to feeling better but still very weak. Past medical history: ulcerative colitis, stage III colon cancer. Past surgical history: Colectomy, colostomy, cholecystectomy, , tubal ligation Family history: Mother had breast cancer Social history: Denies tobacco, alcohol, and illicit drug use. Allergies: Penicillins Review of systems: All remaining review of systems including HEENT, card iovascular, respiratory, gastrointestinal, genitourinary, musculoskeletal, dermatologic, neurologic, and psychiatric are negative unless mentioned in the HPI. Past Patient History - Infectious Disease Hx of Infectious Diseases: None - Past Medical History & Family History Past Medical History?: Yes - Past Social History Smoking Status: Never Smoked - CARDIAC Hx Cardiac Disorders: Yes - PULMONARY Hx Respiratory Disorders: No - NEUROLOGICAL Hx Neurological Disorder: No - HEENT Hx HEENT Problems: No - RENAL Hx Chronic Kidney Disease: No - ENDOCRINE/METABOLIC Hx Endocrine Disorders: No - HEMATOLOGICAL/ONCOLOGICAL Hx Blood Disorders: No - INTEGUMENTARY Hx Dermatological Problems: No - MUSCULOSKELETAL/RHEUMATOLOGICAL Hx Musculoskeletal Disorders: No - GASTROINTESTINAL Hx Gastrointestinal Disorders: Yes (DIARRHEA) Hx Gall Bladder Disease: Yes - GENITOURINARY/GYNECOLOGICAL Hx Genitourinary Disorders: No - PSYCHIATRIC Hx Psychophysiologic Disorder: No Hx Substance Use: No - SURGICAL HISTORY Hx Section: Yes Hx Cholecystectomy: Yes Hx Tonsillectomy: Yes Hx Tubal Ligation: Yes Other/Comment: tonsilectomy. x1 - ANESTHESIA Hx Malignant Hyperthermia: No Meds Home Medications: Home Medication List Medication Instructions Recorded Confirmed Type Pantoprazole Sodium [Protonix] 40 mg PO DAILY #14 ect 06/23/18 Rx Sucralfate [Carafate Oral Susp] 1 gm PO BID 14 Days #28 udc 06/23/18 Rx Allergies/Adverse Reactions: Allergies Allergy/AdvReac Type Severity Reaction Status Date / Time Penicillins Allergy RASH Verified 06/20/18 00:06 - Medications Medications: Current Medications Benzocaine/Menthol (Cepacol Sore Throat) 1 arti MT Q2H PRN PRN Reason: Sore Throat Last Admin: 06/20/18 04:00 Dose: 1 arti Enoxaparin Sodium (Lovenox) 40 mg SC DAILY [facility]; Protocol Last Admin: 06/20/18 10:56 Dose: Not Given Metoclopramide HCl (Reglan) 5 mg IVP Q6H PRN PRN Reason: Nausea/Vomiting Last Admin: 06/20/18 10:56 Dose: 5 mg Oxycodone/Acetaminophen (Percocet 5/325 Mg Tab) 1 tab PO Q6H PRN PRN Reason: Pain, severe (8-10) Stop: 06/26/18 10:30 Last Admin: 06/23/18 20:30 Dose: 1 tab Pantoprazole Sodium (Protonix Ec Tab) 40 mg PO BID [facility] Last Admin: 06/23/18 18:24 Dose: 40 mg Sucralfate (Carafate Oral Susp) 1 gm PO QID [facility] Last Admin: 06/23/18 21:25 Dose: 1 gm Physical Exam - Head Exam Head Exam: ATRAUMATIC - Eye Exam Eye Exam: Normal appearance - ENT Exam ENT Exam: Mucous Membranes Dry - Respiratory Exam Respiratory Exam: NORMAL BREATHING PATTERN - Cardiovascular Exam Cardiovascular Exam: +S1, +S2 - GI/Abdominal Exam GI & Abdominal Exam: Normal Bowel Sounds - Extremities Exam Extremities exam: Positive for: normal inspection - Neurological Exam Neurological exam: Oriented x3 - Psychiatric Exam Psychiatric exam: Normal Affect, Normal Mood - Skin Skin Exam: Warm Results - Vital Signs Recent Vital Signs: Last Vital Signs Temp 98.9 F 06/23/18 16:15 Pulse 88 06/23/18 16:15 Resp 20 06/23/18 16:15 BP 100/62 06/23/18 16:15 Pulse Ox 99 06/23/18 16:15 - Labs Result Diagrams: 06/23/18 06:00 06/23/18 06:00 Labs: Laboratory Results - last 24 hr 06/22/18 06/22/18 06/23/18 22:30 22:30 06:00 WBC 3.2 L D RBC 3.50 Hgb 8.9 L 9.1 L Hct 26.5 L 27.2 L MCV 77.7 L MCH 26.0 MCHC 33.5 RDW 19.0 H Plt Count 173 MPV 8.8 Neut % (Auto) 18.2 L Lymph % (Auto) 33.0 Benson % (Auto) 38.0 H Eos % (Auto) 10.5 H Baso % (Auto) 0.3 Lymph # (Auto) 1.1 L Benson # (Auto) 1.2 H Eos # (Auto) 0.3 Baso # (Auto) 0.01 Absolute Neuts (auto) 0.59 L Sodium 135 Potassium 3.2 L Chloride 102 Carbon Dioxide 29 Anion Gap 7 L BUN < 2 L Creatinine 0.3 L Est GFR ( Amer) > 60 Est GFR (Non-Af Amer) > 60 Random Glucose 102 Calcium 7.5 L Magnesium Total Bilirubin AST ALT Alkaline Phosphatase Total Protein Albumin Globulin Albumin/Globulin Ratio 06/23/18 06:00 WBC RBC Hgb Hct MCV MCH MCHC RDW Plt Count MPV Neut % (Auto) Lymph % (Auto) Benson % (Auto) Eos % (Auto) Baso % (Auto) Lymph # (Auto) Benson # (Auto) Eos # (Auto) Baso # (Auto) Absolute Neuts (auto) Sodium 135 Potassium 3.5 L Chloride 102 Carbon Dioxide 29 Anion Gap 7 L BUN < 2 L Creatinine 0.3 L Est GFR ( Amer) > 60 Est GFR (Non-Af Amer) > 60 Random Glucose 92 Calcium 7.7 L Magnesium 1.5 L Total Bilirubin 0.8 AST 26 ALT 31 Alkaline Phosphatase 158 H Total Protein 5.7 L Albumin 2.6 L Globulin 3.1 Albumin/Globulin Ratio 0.8 L Assessment & Plan (1) Dehydration Assessment and Plan: secondary to intractable N/V from chemotherapy hold chemotherapy IV antiemetics and IV hydration Status: Acute (2) Nausea and vomiting Assessment and Plan: secondary to chemotherapy IV antiemetics Status: Acute (3) Pancytopenia Assessment and Plan: secondary to chemotherapy cont. to monitor counts transfusion/growth factor support PRN Status: Acute (4) Colon cancer Assessment and Plan: stage III outpatient adjuvant chemotherapy Thank you for this interesting consult. Status: Acute
--- NOTE | 2018-06-23 22:50 | CP.PCM.PN ---
Subjective - Date & Time of Evaluation Date of Evaluation: 06/23/18 Time of Evaluation: 19:00 - Subjective Subjective: Feeling better but reports to still feeling weak. Objective - Vital Signs/Intake and Output Vital Signs (last 24 hours): Temp Pulse Resp BP Pulse Ox 98.9 F 88 20 100/62 99 06/23/18 16:15 06/23/18 16:15 06/23/18 16:15 06/23/18 16:15 06/23/18 16:15 Intake and Output: 06/23/18 06/24/18 18:59 06:59 Intake Total 1120 Output Total 600 Balance 520 - Medications Medications: Current Medications Benzocaine/Menthol (Cepacol Sore Throat) 1 arti MT Q2H PRN PRN Reason: Sore Throat Last Admin: 06/20/18 04:00 Dose: 1 arti Enoxaparin Sodium (Lovenox) 40 mg SC DAILY [facility]; Protocol Last Admin: 06/20/18 10:56 Dose: Not Given Metoclopramide HCl (Reglan) 5 mg IVP Q6H PRN PRN Reason: Nausea/Vomiting Last Admin: 06/20/18 10:56 Dose: 5 mg Oxycodone/Acetaminophen (Percocet 5/325 Mg Tab) 1 tab PO Q6H PRN PRN Reason: Pain, severe (8-10) Stop: 06/26/18 10:30 Last Admin: 06/23/18 20:30 Dose: 1 tab Pantoprazole Sodium (Protonix Ec Tab) 40 mg PO BID [facility] Last Admin: 06/23/18 18:24 Dose: 40 mg Sucralfate (Carafate Oral Susp) 1 gm PO QID [facility] Last Admin: 06/23/18 21:25 Dose: 1 gm - Labs Labs: 06/23/18 06:00 06/23/18 06:00 PT 15.0 SECONDS (9.4-12.5) H 06/20/18 00:17 INR 1.35 06/20/18 00:17 APTT 35.4 Seconds (26.9-38.3) 06/20/18 00:17 - Head Exam Head Exam: ATRAUMATIC - Eye Exam Eye Exam: Normal appearance - ENT Exam ENT Exam: Mucous Membranes Dry - Respiratory Exam Respiratory Exam: NORMAL BREATHING PATTERN - Cardiovascular Exam Cardiovascular Exam: +S1, +S2 - GI/Abdominal Exam GI & Abdominal Exam: Normal Bowel Sounds Assessment and Plan (1) Dehydration Assessment & Plan: improving IV fluids Status: Acute (2) Nausea and vomiting Assessment & Plan: improved antiemetics Status: Acute (3) Pancytopenia Assessment & Plan: secondary to chemotherapy Granix if ANC < 500 Status: Acute (4) Colon cancer Assessment & Plan: stage III outpatient adjuvant chemotherapy Status: Acute
[2018-06-24] MEDS: Oxycodone/Acetaminophen 5/325 mg Tab PO PRN ×4 (02:32→20:03)
[2018-06-24 08:11] LABS: HEMOGLOBIN 9.3 g/dL (12.0-16.0); MEAN CELL VOLUME 77.5 fl (80.0-105.0); MEAN CORPUSCULAR HEMOGLOBIN 25.5 pg (25.0-35.0); MEAN PLATELET VOLUME 8.4 fl (7.0-11.0); PLATELET COUNT 227 10^3/uL (120.0-450.0); RBC 3.64 10^6/uL (3.5-6.1); RED CELL DISTRIBUTION WIDTH 19.6 % (11.5-14.5); WHITE BLOOD COUNT 4.5 10^3/uL (4.5-11.0)
[2018-06-24 08:18] LABS: BLOOD UREA NITROGEN 4 mg/dL (7-21); CALCIUM 7.6 mg/dL (8.4-10.5); GFR NON-AFRICAN AMERICAN > 60
[2018-06-24] MEDS: Sucralfate 1 gm/10 ml Oral Susp UD PO SCH ×4 (09:07→22:38)
[2018-06-24] MEDS: Potassium Chloride 20 mEq ER Tab PO SCH ×2 (09:08→17:01)
[2018-06-24] MEDS: Pantoprazole 40 mg EC Tab PO SCH ×2 (09:08→17:03)
--- NOTE | 2018-06-24 12:37 | CP.PCM.PN ---
<Chris Lemons - Last Filed: 06/24/18 14:43> Subjective - Date & Time of Evaluation Date of Evaluation: 06/24/18 Time of Evaluation: 12:34 - Subjective Subjective: Chris Lemons, PGY-1, Internal Medicine Progress Note for Dr. Lucas Patient seen and evaluated at bedside. Patient had no acute overnight events. Patient reports abdominal pain from taking oxycodone and reports morphine helped pain. She had one episode of NBNB vomiting yesterday evening. Patient denies fever, chills, chest pain, shortness of breath, adequate ostomy output, dysuria, and hematuria. 12-point ROS was unremarkable except for what was mentioned a zakiya. Objective - Vital Signs/Intake and Output Vital Signs (last 24 hours): Temp Pulse Resp BP Pulse Ox 99 F 98 H 20 96/67 L 98 06/24/18 08:09 06/24/18 08:09 06/24/18 08:09 06/24/18 08:09 06/24/18 08:09 Intake and Output: 06/24/18 06/24/18 06:59 18:59 Intake Total 1120 Output Total 600 Balance 520 - Medications Medications: Current Medications Benzocaine/Menthol (Cepacol Sore Throat) 1 arti MT Q2H PRN PRN Reason: Sore Throat Last Admin: 06/20/18 04:00 Dose: 1 arti Enoxaparin Sodium (Lovenox) 40 mg SC DAILY [facility]; Protocol Last Admin: 06/20/18 10:56 Dose: Not Given Magnesium Oxide (Mag-Ox) 400 mg PO DAILY [facility] Metoclopramide HCl (Reglan) 5 mg IVP Q6H PRN PRN Reason: Nausea/Vomiting Last Admin: 06/24/18 05:41 Dose: 5 mg Oxycodone/Acetaminophen (Percocet 5/325 Mg Tab) 1 tab PO Q6H PRN PRN Reason: Pain, severe (8-10) Stop: 06/26/18 10:30 Last Admin: 06/24/18 02:32 Dose: 1 tab Pantoprazole Sodium (Protonix Ec Tab) 40 mg PO BID [facility] Last Admin: 06/24/18 09:08 Dose: 40 mg Potassium Chloride (K-Dur 20 Meq Er Tab) 40 meq PO BID [facility] Stop: 06/24/18 18:01 Last Admin: 06/24/18 09:08 Dose: 40 meq Sucralfate (Carafate Oral Susp) 1 gm PO QID [facility] Last Admin: 06/24/18 09:07 Dose: 1 gm - Labs Labs: 06/24/18 08:00 06/24/18 08:00 PT 15.0 SECONDS (9.4-12.5) H 06/20/18 00:17 INR 1.35 06/20/18 00:17 APTT 35.4 Seconds (26.9-38.3) 06/20/18 00:17 - Constitutional Appears: Well, Non-toxic, No Acute Distress - Head Exam Head Exam: ATRAUMATIC, NORMAL INSPECTION, NORMOCEPHALIC - Eye Exam Eye Exam: EOMI, PERRL - ENT Exam ENT Exam: Mucous Membranes Moist - Neck Exam Neck Exam: Full ROM, Normal Inspection - Respiratory Exam Respiratory Exam: Clear to Ausculation Bilateral, NORMAL BREATHING PATTERN. absent: Rales, Rhonchi, Wheezes - Cardiovascular Exam Cardiovascular Exam: REGULAR RHYTHM, RRR, +S1, +S2. absent: Clicks, Gallop, Rubs - GI/Abdominal Exam GI & Abdominal Exam: Soft, Tenderness (diffuse), Normal Bowel Sounds. absent: Distended, Firm, Guarding Additional comments: ostomy intact with adequate stool output which is brown and green - Extremities Exam Extremities Exam: Full ROM, Normal Capillary Refill, Normal Inspection - Neurological Exam Neurological Exam: Alert, Awake, CN II-XII Intact, Oriented x3 - Psychiatric Exam Psychiatric exam: Normal Affect, Normal Mood - Skin Skin Exam: Dry, Intact, Normal Color Assessment and Plan - Assessment and Plan (Free Text) Assessment: 47 year old female with a past medical history of colon cancer (s/p colectomy and colostomy) and HLD, presented with generalized weakness for 2 weeks. Patient was admitted for abdominal pain and bloody bowel movements. Bloody bowel movements have now resolved. Patient additionally was found to have gram positive bacilli bacteremia. Plan: Gram positive bacilli bacteremia -Blood culture from 06/22 shows gram positive yonas in one bottle. Other bottle is negative -Primary site of infection unknown -Patient currently does not fulfill SIRS criteria -CXR 06/20: mild right basilar atelectasis and probable tiny bilateral pleural effusions -Abdominal U/S 06/20: examination limited by bowel gas. Dilated CBD in setting of cholecystectomy. -UA 06/22: negative for leukocyte esterase and nitrate -UCx 06/20: Corynebacterium. Possibly contaminate as this is not a typical bacte zeinab to cause UTI -Will hold off on antibiotics until source identified as blood culture could be contaminate. -Dr. Pierre, ID, consulted for further recommendations. Will follow recs. Epigastric abdominal pain with anemia in the setting of Colon Cancer vs. Chronic Ulcerative Colitis -History of Colon Cancer and Chronic Ulcerative Colitis -Continue to have no bloody bowel movements -Abdominal U/S 06/20: examination limited by bowel gas. Dilated CBD in setting of cholecystectomy. -Hemoglobin is stable in the 8-9s -Transfuse if Hgb<8 -Continue percocet 5/325 Q6PRN for pain -Continue with protonix -Started maalox for abdominal discomfort from percocet. -Continue GI/Hepatic Diet. She has been tolerating diet well. -As per Surgery, no plans for ileostomy reversal at this time Colon cancer -Patient was initially on capecitabine but as per Heme/Onc, will hold for now until she follows up outpatient. Hypokalemia -Likely 2/2 to GI losses. In addition, patient has hypomagnesia -Replete electrolytes as necessary Hypomagnesia -Replete electrolytes as necessary Neutropenia-resolved -Neutropenic precautions currently still on -Possible bacteremia due to risk factor of neutropenia -Afebrile at this time but will monitor for fevers -Heme/Onc on consult who requests outpatient follow up and discontinuation of chemotherapy. Nausea and vomiting as side effect of chemotherapy and oxycodone use -Continue with reglan PRN for nausea -Continue with protonix, sucralfate, and maalax for abdominal discomfort -Continue with cepacol PRN for sore throat GI Prophylaxis: protonix DVT prophylaxis: SCD Patient plan discussed with Dr. Lucas. <Suyapa Lucas - Last Filed: 06/24/18 15:33> Objective - Vital Signs/Intake and Output Vital Signs (last 24 hours): Temp Pulse Resp BP Pulse Ox 99 F 98 H 20 96/67 L 98 06/24/18 08:09 06/24/18 08:09 06/24/18 08:09 06/24/18 08:09 06/24/18 08:09 Intake and Output: 06/24/18 06/24/18 06:59 18:59 Intake Total 1120 Output Total 600 Balance 520 - Medications Medications: Current Medications Al Hydrox/Mg Hydrox/Simethicone (Maalox Plus 30 Ml) 30 ml PO DAILY PRN PRN Reason: Indigestion / Heartburn Benzocaine/Menthol (Cepacol Sore Throat) 1 arti MT Q2H PRN PRN Reason: Sore Throat Last Admin: 06/20/18 04:00 Dose: 1 arti Enoxaparin Sodium (Lovenox) 40 mg SC DAILY [facility]; Protocol Last Admin: 06/20/18 10:56 Dose: Not Given Magnesium Oxide (Mag-Ox) 400 mg PO DAILY [facility] Metoclopramide HCl (Reglan) 5 mg IVP Q6H PRN PRN Reason: Nausea/Vomiting Last Admin: 06/24/18 05:41 Dose: 5 mg Oxycodone/Acetaminophen (Percocet 5/325 Mg Tab) 1 tab PO Q6H PRN PRN Reason: Pain, severe (8-10) Stop: 06/26/18 10:30 Last Admin: 06/24/18 13:23 Dose: 1 tab Pantoprazole Sodium (Protonix Ec Tab) 40 mg PO BID [facility] Last Admin: 06/24/18 09:08 Dose: 40 mg Potassium Chloride (K-Dur 20 Meq Er Tab) 40 meq PO BID [facility] Stop: 06/24/18 18:01 Last Admin: 06/24/18 09:08 Dose: 40 meq Sucralfate (Carafate Oral Susp) 1 gm PO QID [facility] Last Admin: 06/24/18 13:21 Dose: 1 gm - Labs Labs: 06/24/18 08:00 06/24/18 08:00 PT 15.0 SECONDS (9.4-12.5) H 06/20/18 00:17 INR 1.35 06/20/18 00:17 APTT 35.4 Seconds (26.9-38.3) 06/20/18 00:17 Attending/Attestation - Attestation I have personally seen and examined this patient.: Yes I have fully participated in the care of the patient.: Yes I have reviewed all pertinent clinical information, including history, physical exam and plan: Yes Notes (Text): 06/24/18 15:29 47 year old female with past medical history of colon cancer s/p colectomy s/p colostomy who presented with intractable nausea, vomiting with epigastric pain and anemia. She was started on iv fluids and protonix. She was on carafate. Her symptoms have improved. Her hemoglobin remains stable. GI and surgery have signed off. Her diet was advanced which she is tolerating. Patient was noted to have neutropenia, likely secondary to chemotherapy which also has improved. Hematology is following. Will replete and repeat lytes (potassium, magnesium). LFTs have improved. Patient noted to have one bottle positive gram positive yonas. Rule out bacteremia vs contamination. UCx was also positive for Corynebacterium species. Will follow up with ID recommendations. PT recommended ERYN vs HWS. Patient is still refusing ERYN. Suyapa Lucas MD Hospitalist.
[2018-06-24] MEDS ORDERED: Alum-Mag Hydrox-Simethicone Susp (30 mL) PO PRN (12:40)
[2018-06-24 13:17] LABS: BASO # 0.01 K/mm3 (0.0-2.0); BASO % 0.2 % (0.0-3.0); EOS # 0.3 (0.0-0.7); EOS % 7.4 % (1.5-5.0); LYMPH # 1.1 (1.2-3.4); LYMPH % 23.1 % (22.0-35.0); MONO # 1.7 (0.1-0.6); MONO % 37.8 % (1.0-6.0)
[2018-06-24 13:58] LABS: BAND 6 % (0-2); EOSINOPHIL 11 % (0.0-3.0); LYMPHOCYTE 31 % (22.0-35.0); MONOCYTE 26 % (1.0-6.0); NEUTROPHIL 26 % (50.0-70.0); PLATELET ESTIMATE NORMAL (NORMAL)
[2018-06-24] MEDS: Magnesium Oxide 400 mg Tab UD PO SCH (17:02)
--- NOTE | 2018-06-24 18:42 | CP.PCM.CON ---
History of Present Illness - History of Present Illness History of Present Illness: Infectious Disease Consultation: June 24, 2018 47 year old female with a past medical history of colon cancer (s/p colectomy and colostomy) and HLD, presenting with generalized weakness for 2 weeks. She was diagnosed with colon cancer in March of 2017 and got her surgery in January of 2018. Patient states that she is currently on chemotherapy and her last dose was 2 weeks ago. She states that she has not been eating as she has no appetite. She also admits to nausea and have episodes of vomiting almost every day. She states that she vomited twice today after attemtping to eat a sandwich. Patient is taking Capecitabine daily and states that the medication is making her symptoms worse. She denies hematemesis, fevers, chills, night sweats, chest pain, shortness of breath, diarrhea, or urinary symptoms. The patient with growth of Corynebacterium in urine and 1 out of 2 blood cultures showing gram positive rods (likely also Corynebacterium) in patient with PCN allergy. PMHx: Colon cancer s/p colectomy and colostomy HLD PSHx: colectomy, colostomy, , cholecystectomy, tubal ligation Allergies: PCN Social Hx: No tobacco, EtOH, or illicit drug use. Active Medications Al Hydrox/Mg Hydrox/Simethicone (Maalox Plus 30 Ml) 30 ml PO DAILY PRN PRN Reason: Indigestion / Heartburn Benzocaine/Menthol (Cepacol Sore Throat) 1 arti MT Q2H PRN PRN Reason: Sore Throat Last Admin: 06/20/18 04:00 Dose: 1 arti Enoxaparin Sodium (Lovenox) 40 mg SC DAILY [facility]; Protocol Last Admin: 06/20/18 10:56 Dose: Not Given Magnesium Oxide (Mag-Ox) 400 mg PO DAILY [facility] Last Admin: 06/24/18 17:02 Dose: 400 mg Metoclopramide HCl (Reglan) 5 mg IVP Q6H PRN PRN Reason: Nausea/Vomiting Last Admin: 06/24/18 05:41 Dose: 5 mg Oxycodone/Acetaminophen (Percocet 5/325 Mg Tab) 1 tab PO Q6H PRN PRN Reason: Pain, severe (8-10) Stop: 06/26/18 10:30 Last Admin: 06/24/18 13:23 Dose: 1 tab Pantoprazole Sodium (Protonix Ec Tab) 40 mg PO BID [facility] Last Admin: 06/24/18 17:03 Dose: 40 mg Sucralfate (Carafate Oral Susp) 1 gm PO QID [facility] Last Admin: 06/24/18 17:01 Dose: 1 gm Family Hx: Mother - breast cancer ROS: Poor appetite, nausea, vomiting, weakness No chest pain, melena, hematuria, hematemesis, hematochezia, depression, anxiety, abdominal pain, vision loss, hearing loss, loss of consciousness. Past Patient History - Infectious Disease Hx of Infectious Diseases: None - Past Medical History & Family History Past Medical History?: Yes - Past Social History Smoking Status: Never Smoked - CARDIAC Hx Cardiac Disorders: Yes - PULMONARY Hx Respiratory Disorders: No - NEUROLOGICAL Hx Neurological Disorder: No - HEENT Hx HEENT Problems: No - RENAL Hx Chronic Kidney Disease: No - ENDOCRINE/METABOLIC Hx Endocrine Disorders: No - HEMATOLOGICAL/ONCOLOGICAL Hx Blood Disorders: No - INTEGUMENTARY Hx Dermatological Problems: No - MUSCULOSKELETAL/RHEUMATOLOGICAL Hx Musculoskeletal Disorders: No - GASTROINTESTINAL Hx Gastrointestinal Disorders: Yes ([place]) Hx Gall Bladder Disease: Yes - GENITOURINARY/GYNECOLOGICAL Hx Genitourinary Disorders: No - PSYCHIATRIC Hx Psychophysiologic Disorder: No Hx Substance Use: No - SURGICAL HISTORY Hx Section: Yes Hx Cholecystectomy: Yes Hx Tonsillectomy: Yes Hx Tubal Ligation: Yes Other/Comment: tonsilectomy. x1 - ANESTHESIA Hx Malignant Hyperthermia: No Meds Home Medications: Home Medication List Medication Instructions Recorded Confirmed Type Pantoprazole Sodium [Protonix] 40 mg PO DAILY #14 ect 06/23/18 Rx Sucralfate [Carafate Oral Susp] 1 gm PO BID 14 Days #28 udc 06/23/18 Rx Allergies/Adverse Reactions: Allergies Allergy/AdvReac Type Severity Reaction Status Date / Time Penicillins Allergy RASH Verified 06/20/18 00:06 - Medications Medications: Current Medications Al Hydrox/Mg Hydrox/Simethicone (Maalox Plus 30 Ml) 30 ml PO DAILY PRN PRN Reason: Indigestion / Heartburn Benzocaine/Menthol (Cepacol Sore Throat) 1 arti MT Q2H PRN PRN Reason: Sore Throat Last Admin: 06/20/18 04:00 Dose: 1 arti Enoxaparin Sodium (Lovenox) 40 mg SC DAILY [facility]; Protocol Last Admin: 06/20/18 10:56 Dose: Not Given Magnesium Oxide (Mag-Ox) 400 mg PO DAILY [facility] Last Admin: 06/24/18 17:02 Dose: 400 mg Metoclopramide HCl (Reglan) 5 mg IVP Q6H PRN PRN Reason: Nausea/Vomiting Last Admin: 06/24/18 05:41 Dose: 5 mg Oxycodone/Acetaminophen (Percocet 5/325 Mg Tab) 1 tab PO Q6H PRN PRN Reason: Pain, severe (8-10) Stop: 06/26/18 10:30 Last Admin: 06/24/18 13:23 Dose: 1 tab Pantoprazole Sodium (Protonix Ec Tab) 40 mg PO BID [facility] Last Admin: 06/24/18 17:03 Dose: 40 mg Sucralfate (Carafate Oral Susp) 1 gm PO QID [facility] Last Admin: 06/24/18 17:01 Dose: 1 gm Physical Exam - Constitutional Appears: Non-toxic, No Acute Distress, Chronically Ill - Head Exam Head Exam: ATRAUMATIC, NORMOCEPHALIC - Eye Exam Eye Exam: EOMI, PERRL Pupil Exam: NORMAL ACCOMODATION, PERRL - ENT Exam ENT Exam: Mucous Membranes Moist, Normal External Ear Exam, TM's Normal Bilaterally - Neck Exam Neck exam: Positive for: Full Rom, Normal Inspection - Respiratory Exam Respiratory Exam: Clear to Auscultation Bilateral, NORMAL BREATHING PATTERN. absent: Rales, Rhonchi, Wheezes - Cardiovascular Exam Cardiovascular Exam: Tachycardia, +S1, +S2 - GI/Abdominal Exam GI & Abdominal Exam: Normal Bowel Sounds, Soft, Tenderness (diffuse). absent: Distended Additional comments: Colostomy bag noted on right abdomen. Dressing in middle of the abdomen C/D/I - Extremities Exam Extremities exam: Negative for: full ROM, pedal edema - Neurological Exam Neurological exam: Alert, CN II-XII Intact, Oriented x3 - Psychiatric Exam Psychiatric exam: Normal Affect, Normal Mood Results - Vital Signs Recent Vital Signs: Last Vital Signs Temp 99 F 06/24/18 16:27 Pulse 71 06/24/18 16:27 Resp 18 06/24/18 16:27 BP 96/68 L 06/24/18 16:27 Pulse Ox 98 06/24/18 16:27 - Labs Result Diagrams: 06/24/18 08:00 06/24/18 08:00 Labs: Laboratory Results - last 24 hr 06/24/18 06/24/18 08:00 08:00 WBC 4.5 D RBC 3.64 Hgb 9.3 L Hct 28.2 L MCV 77.5 L MCH 25.5 MCHC 33.0 RDW 19.6 H Plt Count 227 MPV 8.4 Neut % (Auto) 31.5 L Lymph % (Auto) 23.1 [place] % (Auto) 37.8 H Eos % (Auto) 7.4 H Baso % (Auto) 0.2 Lymph # (Auto) 1.1 L [place] # (Auto) 1.7 H Eos # (Auto) 0.3 Baso # (Auto) 0.01 Absolute Neuts (auto) 1.44 Neutrophils % (Manual) 26 L Band Neutrophils % 6 H Lymphocytes % (Manual) 31 Monocytes % (Manual) 26 H Eosinophils % (Manual) 11 H Platelet Evaluation Normal Sodium 134 Potassium 3.0 L Chloride 99 Carbon Dioxide 31 Anion Gap 7 L BUN 4 L Creatinine 0.4 L Est GFR ( Amer) > 60 Est GFR (Non-Af Amer) > 60 Random Glucose 98 Calcium 7.6 L Magnesium 1.5 L Assessment & Plan - Assessment and Plan (Free Text) Assessment: 47 yo female with past medical history of colon cancer with colectomy and colostomy with intractable nausea, vomiting, anemia, and epigastric pain. ID called for urine culture with Corynebacterium and 1 of 2 blood cultures with gram positive rods (likely Corynebacterium). Given two sources may be positive, can consider use of Azithromycin or Levaquin for treatment which can be switched to oral therapy when patient can tolerate. Unclear if the patient has a true PCN allergy. Supportive care. Thank you for allowing me to participate in the care of the patient, we will follow with you.
[2018-06-25] MEDS: Oxycodone/Acetaminophen 5/325 mg Tab PO PRN ×4 (04:44→23:39)
[2018-06-25 08:11] VITALS: RESP 20
[2018-06-25] MEDS: Magnesium Oxide 400 mg Tab UD PO SCH (10:17)
[2018-06-25] MEDS: Sucralfate 1 gm/10 ml Oral Susp UD PO SCH ×4 (10:17→21:23)
[2018-06-25] MEDS: Pantoprazole 40 mg EC Tab PO SCH ×2 (10:18→17:18)
[2018-06-25 11:26] LABS: ALB/GLOB RATIO 0.8 (1.1-1.8); ALBUMIN 2.2 g/dL (3.0-4.8); ALT/SGPT 28 U/L (7-56); AST/SGOT 32 U/L (14-36); BLOOD UREA NITROGEN 3 mg/dL (7-21); CALCIUM 7.1 mg/dL (8.4-10.5); GFR NON-AFRICAN AMERICAN > 60
[2018-06-25] MEDS ORDERED: Magnesium Oxide 400 mg Tab UD PO ONE (12:15)
[2018-06-25] MEDS: Potassium Chloride 20 mEq ER Tab PO SCH ×2 (14:00→17:17)
--- NOTE | 2018-06-25 14:17 | CP.PCM.DIS ---
<Chris Lemons - Last Filed: 06/25/18 13:51> Provider - Provider Date of Admission: 06/22/18 08:42 Attending physician: Suyapa Lucas MD Consults: 06/20/18 13:59 Hematology Oncology Consult Routine Comment: Consulting Provider: Diogo Teixeira Consulting Physician: Diogo Teixeira Reason for Consult: continuity of care 06/22/18 08:44 Physician Consult Routine Comment: Consulting Provider: Av Ponce Consulting Physician: Av Ponce Reason for Consult: s/p colon cancer; bleeding from rectum 06/24/18 11:15 Infectious Disease Consult Routine Comment: Consulting Provider: Sb Pierre Consulting Physician: Sb Pierre Reason for Consult: gram positive bacilli bacteremia 06/25/18 11:34 Wound Care [Nursing Referral for Wound Care] Routine Comment: dark pink drainage, dressing change recommendation Physician Instructions: Reason For Exam: mid lower abdominal wound with mild drainage Time Spent in preparation of Discharge (in minutes): 60 Hospital Course - Lab Results Lab Results: Micro Results 06/22/18 10:25 Blood-Venous Blood Culture - Final Corynebacterium Species 06/22/18 10:25 Blood-Venous Gram Stain - Final 06/22/18 10:00 Blood-Venous Blood Culture - Preliminary NO GROWTH AFTER 3 DAYS 06/22/18 09:20 Urine,Clean Catch Urine Culture - Final No Growth (<1,000 CFU/ML) 06/20/18 02:12 Urine Random Urine Culture - Final Corynebacterium Species Most Recent Lab Values WBC 4.5 10^3/uL (4.5-11.0) D 06/24/18 08:00 RBC 3.64 10^6/uL (3.5-6.1) 06/24/18 08:00 Hgb 9.3 g/dL (12.0-16.0) L 06/24/18 08:00 Hct 28.2 % (36.0-48.0) L 06/24/18 08:00 MCV 77.5 fl (80.0-105.0) L 06/24/18 08:00 MCH 25.5 pg (25.0-35.0) 06/24/18 08:00 MCHC 33.0 g/dl (31.0-37.0) 06/24/18 08:00 RDW 19.6 % (11.5-14.5) H 06/24/18 08:00 Plt Count 227 10^3/uL (120.0-450.0) 06/24/18 08:00 MPV 8.4 fl (7.0-11.0) 06/24/18 08:00 Neut % (Auto) 31.5 % (50.0-68.0) L 06/24/18 08:00 Lymph % (Auto) 23.1 % (22.0-35.0) 06/24/18 08:00 [place] % (Auto) 37.8 % (1.0-6.0) H 06/24/18 08:00 Eos % (Auto) 7.4 % (1.5-5.0) H 06/24/18 08:00 Baso % (Auto) 0.2 % (0.0-3.0) 06/24/18 08:00 Lymph # (Auto) 1.1 (1.2-3.4) L 06/24/18 08:00 [place] # (Auto) 1.7 (0.1-0.6) H 06/24/18 08:00 Eos # (Auto) 0.3 (0.0-0.7) 06/24/18 08:00 Baso # (Auto) 0.01 K/mm3 (0.0-2.0) 06/24/18 08:00 Absolute Neuts (auto) 1.44 (1.4-6.5) 06/24/18 08:00 Neutrophils % (Manual) 26 % (50.0-70.0) L 06/24/18 08:00 Band Neutrophils % 6 % (0-2) H 06/24/18 08:00 Lymphocytes % (Manual) 31 % (22.0-35.0) 06/24/18 08:00 Atypical Lymphs % 1 % (0.0-0.0) H 06/20/18 12:30 Monocytes % (Manual) 26 % (1.0-6.0) H 06/24/18 08:00 Eosinophils % (Manual) 11 % (0.0-3.0) H 06/24/18 08:00 Platelet Evaluation Normal (NORMAL) 06/24/18 08:00 PT 15.0 SECONDS (9.4-12.5) H 06/20/18 00:17 INR 1.35 06/20/18 00:17 APTT 35.4 Seconds (26.9-38.3) 06/20/18 00:17 pO2 171 mm/Hg (30-55) H 06/20/18 12:30 VBG pH 7.39 (7.32-7.43) 06/20/18 12:30 VBG pCO2 46.0 (40-60) 06/20/18 12:30 VBG HCO3 27.8 mmol/l (21-28) 06/20/18 12:30 VBG Total CO2 29.2 mmol.L (22-28) H 06/20/18 12:30 VBG O2 Sat (Calc) 99.9 % (40-65) H 06/20/18 12:30 VBG Base Excess 2.2 mmol/L (0.0-2.0) H 06/20/18 12:30 VBG Potassium 3.9 mmol/L (3.6-5.2) 06/20/18 12:30 Sodium 137.0 mmol/L (132-148) 06/20/18 12:30 Chloride 107.0 mmol/L (98-107) 06/20/18 12:30 Glucose 107 mg/dl (65-105) H 06/20/18 12:30 Lactate 0.9 mmol/L (0.7-2.1) 06/20/18 12:30 FiO2 21.0 % 06/20/18 12:30 Crit Value Called To Bridgett roberts churn operator 06/20/18 00:10 Crit Value Called By Coty perdue assistant family teacher 06/20/18 00:10 Blood Gas Notified Time 34 06/20/18 00:10 Sodium 136 mmol/L (132-148) 06/25/18 09:00 Potassium 3.3 mmol/L (3.6-5.0) L 06/25/18 09:00 Chloride 107 mmol/L (98-107) 06/25/18 09:00 Carbon Dioxide 23 mmol/L (21-33) 06/25/18 09:00 Anion Gap 9 (10-20) L 06/25/18 09:00 BUN 3 mg/dL (7-21) L 06/25/18 09:00 Creatinine 0.3 mg/dl (0.7-1.2) L 06/25/18 09:00 Est GFR ( Amer) > 60 06/25/18 09:00 Est GFR (Non-Af Amer) > 60 06/25/18 09:00 Random Glucose 77 mg/dL (70-110) 06/25/18 09:00 Calcium 7.1 mg/dL (8.4-10.5) L 06/25/18 09:00 Phosphorus 2.7 mg/dL (2.5-4.5) 06/25/18 09:00 Magnesium 1.5 mg/dL (1.7-2.2) L 06/25/18 09:00 Total Bilirubin 0.5 mg/dL (0.2-1.3) 06/25/18 09:00 AST 32 U/L (14-36) 06/25/18 09:00 ALT 28 U/L (7-56) 06/25/18 09:00 Alkaline Phosphatase 178 U/L (38-126) H 06/25/18 09:00 Total Creatine Kinase < 20 U/L (35-230) L 06/20/18 00:17 Troponin I < 0.01 ng/mL 06/20/18 00:17 NT-Pro-B Natriuret Pep 104 pg/mL (0-450) 06/20/18 00:17 Total Protein 5.0 g/dL (5.8-8.3) L 06/25/18 09:00 Albumin 2.2 g/dL (3.0-4.8) L 06/25/18 09:00 Globulin 2.8 gm/dL 06/25/18 09:00 Albumin/Globulin Ratio 0.8 (1.1-1.8) L 06/25/18 09:00 Lipase 201 U/L (23-300) 06/20/18 00:17 Venous Blood Potassium 3.9 mmol/L (3.6-5.2) 06/20/18 12:30 Urine Color Yellow (YELLOW) 06/22/18 09:20 Urine Appearance Clear (CLEAR) 06/22/18 09:20 Urine pH 6.0 (4.7-8.0) 06/22/18 09:20 Ur Specific [place] 1.020 (1.005-1.035) 06/22/18 09:20 Urine Protein Negative mg/dL (<30 mg/dL) 06/22/18 09:20 Urine Glucose (UA) Negative mg/dL (NEGATIVE) 06/22/18 09:20 Urine Ketones Trace mg/dL (NEGATIVE) H 06/22/18 09:20 Urine Blood Moderate (NEGATIVE) H 06/22/18 09:20 Urine Nitrate Negative (NEGATIVE) 06/22/18 09:20 Urine Bilirubin Negative (NEGATIVE) 06/22/18 09:20 Urine Urobilinogen 0.2 E.U./dL (<1 E.U./dL) 06/22/18 09:20 Ur Leukocyte Esterase Negative [place]/uL (NEGATIVE) 06/22/18 09:20 Urine RBC 20 - 25 /hpf (0-2) H 06/22/18 09:20 Urine WBC 1 - 3 /hpf (0-6) 06/22/18 09:20 Ur Epithelial Cells 6 - 8 /hpf (0-5) H 06/22/18 09:20 Amorphous Sediment Few /hpf (NONE) 06/20/18 02:12 Urine Bacteria Many /hpf (NONE) 06/22/18 09:20 Urine Other Uyeast /hpf 06/22/18 09:20 Blood Type AB POSITIVE 06/20/18 00:17 Blood Type Confirm AB POSITIVE 06/20/18 01:25 Antibody Screen Negative 06/20/18 00:17 BBK History Checked No verified bt 06/20/18 00:17 - Hospital Course Hospital Course: Chris Lemons, PGY-1, Internal Medicine Discharge Summary for Dr. Lucas 47 year old female with past medical history of ulcerative colitis, colon cancer status post colectomy and colostomy and hyperlipidemia presented with generalized weakness for 2 weeks. She was diagnosed with colon cancer in March 2017 and had colectomy in January 2018 with ileostomy. Patient was sta rted on chemotherapy and had last dose 2 weeks prior to admission. She was taking capecitabine. She stated not being able to eat as she had no appetite. She also admitted nausea and had daily episodes of vomiting. Her chemotherapy drug, capecitabine made the symptoms worse. Abdominal pain on admission was likely 2/2 to colon cancer vs. UC vs. chemotherapy regimen she was on. She was started on morphine 2 mg Q4 as needed on admission, started on liquid diet. She also was found to have blood in her ostomy. Lovenox was held as a result. GI recommended that patient could have ileostomy reversed outpatient. GI had no plans for any intervention. Hemoglobin has been stable in the 8-9s throughout this admission after an initial drop from 13.2 on admission. For nausea and vomiting, she was initially started on promethazine which was switched to reglan subsequently which helped reduce the nausea and vomiting episodes. In addition, protonix and sucralfate were added for protection of the stomach lining. Patient's morphine was stopped on 06/23 and percocet was started on 06/23. Patient complained of abdominal pain and one episode of vomiting upon switching the medication. She reported pain was d ifferent than it had been in the past. As a result, maalox was started, which improved her abdominal pain and patient did not have any other episodes of vomiting on this admission. On 06/22, patient was progressed to altered GI/Hepatic Diet. Patient was also found to be neutropenic at this time and neutropenic precautions were started. Patient's ANC never dropped below 500. Patient was not febrile. However, patient's blood culture was positive for Corynebacterium. This only grew in one bottle and could have been a contaminate as this was found in urine culture as well though UA did not suggest UTI. Dr. Teixeira, Heme/Onc, recommended that patient should see him outpatient and stop chemotherapy drug until she seems him outpatient. He felt as if the chemotherapy regimen she was on was probably too strong and they would alter the regimen outpatient. As per Dr. Pierre, Infectious Disease, he advised discharging her with levaquin for 14 days for bacteremia. Patient has additionally been hypokalemic during this admission likely 2/2 to GI losses and hypokalemia has been repleted appropriately. Magnesium was found to be low this morning and both potassium and magnesium were repleted prior to bertin ent discharge. Patient was found to be stable and ready for discharge. Patient was told to follow up with PCP within 3-5 days. Patient was told to follow up with Dr. Teixeira in 1 week. Patient was told to take all medications as prescribed including levaquin for 14 days. Patient was told to return to the emergency department if she had any new or concerning symptoms. Imaging: Chest X ray 06/20: right central veous catheter extends expected location of SVC. Mild right basilar atelectasis and probable tiny bilateral pleural effusion Abdominal ultrasound 06/20: examination limited by bowel gas. Dilated common bile duct in the setting of cholecystectomy EKG 06/20: sinus tachycarda with HR: 135 with QTC: 555 Discharge diagnoses Corynebacterium bacteremia Colon Cancer Ulcerative Colitis Hypokalemia Hypomagnesia Neutropenia - Date & Time of H&P Date of H&P: 06/20/18 Time of H&P: 02:07 Discharge Exam - Head Exam Head Exam: ATRAUMATIC, NORMOCEPHALIC - Eye Exam Eye Exam: EOMI, PERRL - Respiratory Exam Respiratory Exam: Clear to PA & Lateral, NORMAL BREATHING PATTERN. absent: Rales, Rhonchi, Wheezes - Cardiovascular Exam Cardiovascular Exam: REGULAR RHYTHM, RRR, +S1, +S2. absent: Clicks, Gallop, Rubs - GI/Abdominal Exam GI & Abdominal Exam: Normal Bowel Sounds, Soft, Tenderness (epigastric). absent: Distended, Firm, Guarding Additional comments: drainage from umbilical area near scar midline. ostomy intact with brown green stool - Neurological Exam Neurological exam: Alert, CN II-XII Intact, Normal Gait, Oriented x3 - Psychiatric Exam Psychiatric exam: Normal Affect, Normal Mood - Skin Additional comments: drainage from umbilical area near site of abdominal scar from surgery Discharge Plan - Discharge Medications Prescriptions: Levofloxacin [Levaquin] 500 mg PO DAILY #14 tablet oxyCODONE/Acetaminophen [Percocet 5/325 mg Tab] 1 tab PO Q6H PRN #10 tab PRN Reason: Pain, Severe (8-10) Pantoprazole Sodium [Protonix] 40 mg PO DAILY #14 ect Sucralfate [Carafate Oral Susp] 1 gm PO BID 14 Days #28 udc - Follow Up Plan Condition: FAIR Disposition: HOME/ ROUTINE Instructions: Syncope (ED) Additional Instructions: Please follow up with your primary care doctor, Dr. Lazar, within 3-5 days. Please follow up with Dr. Teixeira, Oncology, within 1 week of discharge. Please discontinue your capecitabine until you have followed up with Dr. Teixeira. Please discontinue home tramadol. Please take percocet every 6 hours as needed for pain. Please take levaquin 500 mg once a day for 14 days. Please continue all medications as prescribed. Please return to the emergency department if you have any new or concerning symptoms. Referrals: Diogo Teixeira MD [Staff Provider] - Trent Lazar MD [Family Provider] - <Suyapa Lucas - Last Filed: 06/25/18 14:44> Provider - Provider Date of Admission: 06/22/18 08:42 Attending physician: Suyapa Lucas MD Consults: 06/20/18 13:59 Hematology Oncology Consult Routine Comment: Consulting Provider: Diogo Teixeira Consulting Physician: Diogo Teixeira Reason for Consult: continuity of care 06/22/18 08:44 Physician Consult Routine Comment: Consulting Provider: Av Ponce Consulting Physician: Av Ponce Reason for Consult: s/p colon cancer; bleeding from rectum 06/24/18 11:15 Infectious Disease Consult Routine Comment: Consulting Provider: Sb Pierre Consulting Physician: Sb Pierre Reason for Consult: gram positive bacilli bacteremia 06/25/18 11:34 Wound Care [Nursing Referral for Wound Care] Routine Comment: dark pink drainage, dressing change recommendation Physician Instructions: Reason For Exam: mid lower abdominal wound with mild drainage Hospital Course - Lab Results Lab Results: Micro Results 06/22/18 10:25 Blood-Venous Blood Culture - Final Corynebacterium Species 06/22/18 10:25 Blood-Venous Gram Stain - Final 06/22/18 10:00 Blood-Venous Blood Culture - Preliminary NO GROWTH AFTER 3 DAYS 06/22/18 09:20 Urine,Clean Catch Urine Culture - Final No Growth (<1,000 CFU/ML) 06/20/18 02:12 Urine Random Urine Culture - Final Corynebacterium Species Most Recent Lab Values WBC 4.5 10^3/uL (4.5-11.0) D 06/24/18 08:00 RBC 3.64 10^6/uL (3.5-6.1) 06/24/18 08:00 Hgb 9.3 g/dL (12.0-16.0) L 06/24/18 08:00 Hct 28.2 % (36.0-48.0) L 06/24/18 08:00 MCV 77.5 fl (80.0-105.0) L 06/24/18 08:00 MCH 25.5 pg (25.0-35.0) 06/24/18 08:00 MCHC 33.0 g/dl (31.0-37.0) 06/24/18 08:00 RDW 19.6 % (11.5-14.5) H 06/24/18 08:00 Plt Count 227 10^3/uL (120.0-450.0) 06/24/18 08:00 MPV 8.4 fl (7.0-11.0) 06/24/18 08:00 Neut % (Auto) 31.5 % (50.0-68.0) L 06/24/18 08:00 Lymph % (Auto) 23.1 % (22.0-35.0) 06/24/18 08:00 [place] % (Auto) 37.8 % (1.0-6.0) H 06/24/18 08:00 Eos % (Auto) 7.4 % (1.5-5.0) H 06/24/18 08:00 Baso % (Auto) 0.2 % (0.0-3.0) 06/24/18 08:00 Lymph # (Auto) 1.1 (1.2-3.4) L 06/24/18 08:00 [place] # (Auto) 1.7 (0.1-0.6) H 06/24/18 08:00 Eos # (Auto) 0.3 (0.0-0.7) 06/24/18 08:00 Baso # (Auto) 0.01 K/mm3 (0.0-2.0) 06/24/18 08:00 Absolute Neuts (auto) 1.44 (1.4-6.5) 06/24/18 08:00 Neutrophils % (Manual) 26 % (50.0-70.0) L 06/24/18 08:00 Band Neutrophils % 6 % (0-2) H 06/24/18 08:00 Lymphocytes % (Manual) 31 % (22.0-35.0) 06/24/18 08:00 Atypical Lymphs % 1 % (0.0-0.0) H 06/20/18 12:30 Monocytes % (Manual) 26 % (1.0-6.0) H 06/24/18 08:00 Eosinophils % (Manual) 11 % (0.0-3.0) H 06/24/18 08:00 Platelet Evaluation Normal (NORMAL) 06/24/18 08:00 PT 15.0 SECONDS (9.4-12.5) H 06/20/18 00:17 INR 1.35 06/20/18 00:17 APTT 35.4 Seconds (26.9-38.3) 06/20/18 00:17 pO2 171 mm/Hg (30-55) H 06/20/18 12:30 VBG pH 7.39 (7.32-7.43) 06/20/18 12:30 VBG pCO2 46.0 (40-60) 06/20/18 12:30 VBG HCO3 27.8 mmol/l (21-28) 06/20/18 12:30 VBG Total CO2 29.2 mmol.L (22-28) H 06/20/18 12:30 VBG O2 Sat (Calc) 99.9 % (40-65) H 06/20/18 12:30 VBG Base Excess 2.2 mmol/L (0.0-2.0) H 06/20/18 12:30 VBG Potassium 3.9 mmol/L (3.6-5.2) 06/20/18 12:30 Sodium 137.0 mmol/L (132-148) 06/20/18 12:30 Chloride 107.0 mmol/L (98-107) 06/20/18 12:30 Glucose 107 mg/dl (65-105) H 06/20/18 12:30 Lactate 0.9 mmol/L (0.7-2.1) 06/20/18 12:30 FiO2 21.0 % 06/20/18 12:30 Crit Value Called To Bridgett roberts churn operator 06/20/18 00:10 Crit Value Called By Coty perdue assistant family teacher 06/20/18 00:10 Blood Gas Notified Time 34 06/20/18 00:10 Sodium 136 mmol/L (132-148) 06/25/18 09:00 Potassium 3.3 mmol/L (3.6-5.0) L 06/25/18 09:00 Chloride 107 mmol/L (98-107) 06/25/18 09:00 Carbon Dioxide 23 mmol/L (21-33) 06/25/18 09:00 Anion Gap 9 (10-20) L 06/25/18 09:00 BUN 3 mg/dL (7-21) L 06/25/18 09:00 Creatinine 0.3 mg/dl (0.7-1.2) L 06/25/18 09:00 Est GFR ( Amer) > 60 06/25/18 09:00 Est GFR (Non-Af Amer) > 60 06/25/18 09:00 Random Glucose 77 mg/dL (70-110) 06/25/18 09:00 Calcium 7.1 mg/dL (8.4-10.5) L 06/25/18 09:00 Phosphorus 2.7 mg/dL (2.5-4.5) 06/25/18 09:00 Magnesium 1.5 mg/dL (1.7-2.2) L 06/25/18 09:00 Total Bilirubin 0.5 mg/dL (0.2-1.3) 06/25/18 09:00 AST 32 U/L (14-36) 06/25/18 09:00 ALT 28 U/L (7-56) 06/25/18 09:00 Alkaline Phosphatase 178 U/L (38-126) H 06/25/18 09:00 Total Creatine Kinase < 20 U/L (35-230) L 06/20/18 00:17 Troponin I < 0.01 ng/mL 06/20/18 00:17 NT-Pro-B Natriuret Pep 104 pg/mL (0-450) 06/20/18 00:17 Total Protein 5.0 g/dL (5.8-8.3) L 06/25/18 09:00 Albumin 2.2 g/dL (3.0-4.8) L 06/25/18 09:00 Globulin 2.8 gm/dL 06/25/18 09:00 Albumin/Globulin Ratio 0.8 (1.1-1.8) L 06/25/18 09:00 Lipase 201 U/L (23-300) 06/20/18 00:17 Venous Blood Potassium 3.9 mmol/L (3.6-5.2) 06/20/18 12:30 Urine Color Yellow (YELLOW) 06/22/18 09:20 Urine Appearance Clear (CLEAR) 06/22/18 09:20 Urine pH 6.0 (4.7-8.0) 06/22/18 09:20 Ur Specific [place] 1.020 (1.005-1.035) 06/22/18 09:20 Urine Protein Negative mg/dL (<30 mg/dL) 06/22/18 09:20 Urine Glucose (UA) Negative mg/dL (NEGATIVE) 06/22/18 09:20 Urine Ketones Trace mg/dL (NEGATIVE) H 06/22/18 09:20 Urine Blood Moderate (NEGATIVE) H 06/22/18 09:20 Urine Nitrate Negative (NEGATIVE) 06/22/18 09:20 Urine Bilirubin Negative (NEGATIVE) 06/22/18 09:20 Urine Urobilinogen 0.2 E.U./dL (<1 E.U./dL) 06/22/18 09:20 Ur Leukocyte Esterase Negative [place]/uL (NEGATIVE) 06/22/18 09:20 Urine RBC 20 - 25 /hpf (0-2) H 06/22/18 09:20 Urine WBC 1 - 3 /hpf (0-6) 06/22/18 09:20 Ur Epithelial Cells 6 - 8 /hpf (0-5) H 06/22/18 09:20 Amorphous Sediment Few /hpf (NONE) 06/20/18 02:12 Urine Bacteria Many /hpf (NONE) 06/22/18 09:20 Urine Other Uyeast /hpf 06/22/18 09:20 Blood Type AB POSITIVE 06/20/18 00:17 Blood Type Confirm AB POSITIVE 06/20/18 01:25 Antibody Screen Negative 06/20/18 00:17 BBK History Checked No verified bt 06/20/18 00:17 Attending/Attestation - Attestation I have personally seen and examined this patient.: Yes I have fully participated in the care of the patient.: Yes I have reviewed all pertinent clinical information, including history, physical exam and plan: Yes Notes (Text): 06/25/18 14:39 47 year old female with past medical history of colon cancer s/p colectomy s/p colostomy who presented with intractable nausea, vomiting with epigastric pain and anemia. She was started on iv fluids and protonix. She was on carafate. Her symptoms have improved. Her hemoglobin remained stable. GI and surgery have signed off. Her diet was advanced which she is tolerating. Patient was noted to have neutropenia, likely secondary to chemotherapy which has improved. She follows up with hematology. She has hypokalemia and hypomagnesemia which were repleted. LFTs have improved. Patient noted to have one bottle blood culture positive for Corynebacterium. UCx was also positive for Corynebacterium. ID evaluation was appreciated who recommended po levaquin x 14 days. PT recommended ERYN vs HWS. Patient refused. Patient is discharged home with home services. Continue with po antibiotics. Follow up with pmd and hematology/oncology. Suyapa Lucas MD Hospitalist.
--- NOTE | 2018-06-25 15:10 | CP.PCM.PN ---
Subjective - Date & Time of Evaluation Date of Evaluation: 06/25/18 Time of Evaluation: 12:00 - Subjective Subjective: Infectious Disease Follow Up: June 25, 2018 47 year old female with a past medical history of colon cancer (s/p colectomy and colostomy) and HLD, presenting with generalized weakness for 2 weeks. She was diagnosed with colon cancer in March of 2017 and got her surgery in January of 2018. Patient states that she is currently on chemotherapy and her last dose was 2 weeks ago. She states that she has not been eating as she has no appetite. She also admits to nausea and have episodes of vomiting almost every day. She states that she vomited twice today after attemtping to eat a sandwich. Patient is taking Capecitabine daily and states that the medication is making her symptoms worse. She denies hematemesis, fevers, chills, night sweats, chest pain, shortness of breath, diarrhea, or urinary symptoms. The patient with growth of Corynebacterium in urine and 1 out of 2 blood cultures showing gram positive rods (likely also Corynebacterium) in patient with PCN allergy. Can start with Levaquin PO 500 daily. Objective - Vital Signs/Intake and Output Vital Signs (last 24 hours): Temp Pulse Resp BP Pulse Ox 98.3 F 98 H 20 102/70 99 06/25/18 08:15 06/25/18 08:15 06/25/18 08:15 06/25/18 08:15 06/25/18 08:15 Intake and Output: 06/25/18 06/25/18 06:59 18:59 Intake Total 2480 Output Total 1950 Balance 530 - Medications Medications: Current Medications Al Hydrox/Mg Hydrox/Simethicone (Maalox Plus 30 Ml) 30 ml PO DAILY PRN PRN Reason: Indigestion / Heartburn Benzocaine/Menthol (Cepacol Sore Throat) 1 arti MT Q2H PRN PRN Reason: Sore Throat Last Admin: 06/20/18 04:00 Dose: 1 arti Enoxaparin Sodium (Lovenox) 40 mg SC DAILY [facility]; Protocol Last Admin: 06/20/18 10:56 Dose: Not Given Magnesium Oxide (Mag-Ox) 400 mg PO DAILY [facility] Last Admin: 06/25/18 10:17 Dose: 400 mg Metoclopramide HCl (Reglan) 5 mg IVP Q6H PRN PRN Reason: Nausea/Vomiting Last Admin: 06/24/18 05:41 Dose: 5 mg Oxycodone/Acetaminophen (Percocet 5/325 Mg Tab) 1 tab PO Q6H PRN PRN Reason: Pain, severe (8-10) Stop: 06/26/18 10:30 Last Admin: 06/25/18 10:19 Dose: 1 tab Pantoprazole Sodium (Protonix Ec Tab) 40 mg PO BID [facility] Last Admin: 06/25/18 10:18 Dose: 40 mg Sucralfate (Carafate Oral Susp) 1 gm PO QID [facility] Last Admin: 06/25/18 13:59 Dose: 1 gm - Labs Labs: 06/24/18 08:00 06/25/18 09:00 PT 15.0 SECONDS (9.4-12.5) H 06/20/18 00:17 INR 1.35 06/20/18 00:17 APTT 35.4 Seconds (26.9-38.3) 06/20/18 00:17 - Constitutional Appears: Non-toxic, No Acute Distress, Chronically Ill - Head Exam Head Exam: ATRAUMATIC, NORMOCEPHALIC - Eye Exam Eye Exam: EOMI, PERRL Pupil Exam: NORMAL ACCOMODATION, PERRL - ENT Exam ENT Exam: Mucous Membranes Moist, Normal External Ear Exam, TM's Normal Bilaterally - Neck Exam Neck Exam: Full ROM, Normal Inspection - Respiratory Exam Respiratory Exam: Clear to Ausculation Bilateral, NORMAL BREATHING PATTERN. absent: Rales, Rhonchi, Wheezes - Cardiovascular Exam Cardiovascular Exam: Tachycardia, +S1, +S2 - GI/Abdominal Exam GI & Abdominal Exam: Soft, Normal Bowel Sounds. absent: Distended, Tenderness Additional comments: Colostomy bag noted on right abdomen. Dressing in middle of the abdomen C/D/I - Extremities Exam Extremities Exam: Full ROM, Normal Inspection - Neurological Exam Neurological Exam: Alert, Awake, CN II-XII Intact, Oriented x3 - Psychiatric Exam Psychiatric exam: Normal Affect, Normal Mood - Skin Skin Exam: Intact, Normal Color Assessment and Plan - Assessment and Plan (Free Text) Assessment: 47 yo female with past medical history of colon cancer with colectomy and colostomy with intractable nausea, vomiting, anemia, and epigastric pain. ID called for urine culture with Corynebacterium and 1 of 2 blood cultures with gram positive rods (likely Corynebacterium). Given two sources may be positive, can consider use of Azithromycin or Levaquin for treatment which can be switched to oral therapy when patient can tolerate. Unclear if the patient has a true PCN allergy. Supportive care. Can discharge with oral Levaquin for 14 days of treatment. Thank you for allowing me to participate in the care of the patient, we will follow with you.
--- NOTE | 2018-06-25 22:26 | CP.PCM.PN ---
Subjective - Date & Time of Evaluation Date of Evaluation: 06/24/18 Time of Evaluation: 17:00 - Subjective Subjective: Feels weak Objective - Vital Signs/Intake and Output Vital Signs (last 24 hours): Temp Pulse Resp BP Pulse Ox 98.6 F 91 H 20 100/69 99 06/25/18 21:47 06/25/18 21:47 06/25/18 21:47 06/25/18 21:47 06/25/18 21:47 Intake and Output: 06/25/18 06/26/18 18:59 06:59 Intake Total 100 Balance 100 - Medications Medications: Current Medications Al Hydrox/Mg Hydrox/Simethicone (Maalox Plus 30 Ml) 30 ml PO DAILY PRN PRN Reason: Indigestion / Heartburn Benzocaine/Menthol (Cepacol Sore Throat) 1 arti MT Q2H PRN PRN Reason: Sore Throat Last Admin: 06/20/18 04:00 Dose: 1 arti Enoxaparin Sodium (Lovenox) 40 mg SC DAILY [facility]; Protocol Last Admin: 06/20/18 10:56 Dose: Not Given Magnesium Oxide (Mag-Ox) 400 mg PO DAILY [facility] Last Admin: 06/25/18 10:17 Dose: 400 mg Metoclopramide HCl (Reglan) 5 mg IVP Q6H PRN PRN Reason: Nausea/Vomiting Last Admin: 06/24/18 05:41 Dose: 5 mg Oxycodone/Acetaminophen (Percocet 5/325 Mg Tab) 1 tab PO Q6H PRN PRN Reason: Pain, severe (8-10) Stop: 06/26/18 10:30 Last Admin: 06/25/18 17:52 Dose: 1 tab Pantoprazole Sodium (Protonix Ec Tab) 40 mg PO BID [facility] Last Admin: 06/25/18 17:18 Dose: 40 mg Sucralfate (Carafate Oral Susp) 1 gm PO QID [facility] Last Admin: 06/25/18 21:23 Dose: 1 gm - Labs Labs: 06/24/18 08:00 06/25/18 09:00 PT 15.0 SECONDS (9.4-12.5) H 06/20/18 00:17 INR 1.35 06/20/18 00:17 APTT 35.4 Seconds (26.9-38.3) 06/20/18 00:17 - Head Exam Head Exam: ATRAUMATIC - Eye Exam Eye Exam: Normal appearance - ENT Exam ENT Exam: Mucous Membranes Dry - Respiratory Exam Respiratory Exam: NORMAL BREATHING PATTERN - Cardiovascular Exam Cardiovascular Exam: +S1, +S2 - GI/Abdominal Exam GI & Abdominal Exam: Normal Bowel Sounds Assessment and Plan (1) Dehydration Assessment & Plan: improving IV fluids Status: Acute (2) Nausea and vomiting Assessment & Plan: improved antiemetics Status: Acute (3) Pancytopenia Assessment & Plan: secondary to chemotherapy Granix if ANC < 500 Status: Acute (4) Colon cancer Assessment & Plan: stage III outpatient adjuvant chemotherapy Status: Acute
--- NOTE | 2018-06-25 22:30 | CP.PCM.PN ---
Subjective - Date & Time of Evaluation Date of Evaluation: 06/25/18 Time of Evaluation: 12:00 - Subjective Subjective: Feeling better. Objective - Vital Signs/Intake and Output Vital Signs (last 24 hours): Temp Pulse Resp BP Pulse Ox 98.6 F 91 H 20 100/69 99 06/25/18 21:47 06/25/18 21:47 06/25/18 21:47 06/25/18 21:47 06/25/18 21:47 Intake and Output: 06/25/18 06/26/18 18:59 06:59 Intake Total 100 Balance 100 - Medications Medications: Current Medications Al Hydrox/Mg Hydrox/Simethicone (Maalox Plus 30 Ml) 30 ml PO DAILY PRN PRN Reason: Indigestion / Heartburn Benzocaine/Menthol (Cepacol Sore Throat) 1 arti MT Q2H PRN PRN Reason: Sore Throat Last Admin: 06/20/18 04:00 Dose: 1 arti Enoxaparin Sodium (Lovenox) 40 mg SC DAILY [facility]; Protocol Last Admin: 06/20/18 10:56 Dose: Not Given Magnesium Oxide (Mag-Ox) 400 mg PO DAILY [facility] Last Admin: 06/25/18 10:17 Dose: 400 mg Metoclopramide HCl (Reglan) 5 mg IVP Q6H PRN PRN Reason: Nausea/Vomiting Last Admin: 06/24/18 05:41 Dose: 5 mg Oxycodone/Acetaminophen (Percocet 5/325 Mg Tab) 1 tab PO Q6H PRN PRN Reason: Pain, severe (8-10) Stop: 06/26/18 10:30 Last Admin: 06/25/18 17:52 Dose: 1 tab Pantoprazole Sodium (Protonix Ec Tab) 40 mg PO BID [facility] Last Admin: 06/25/18 17:18 Dose: 40 mg Sucralfate (Carafate Oral Susp) 1 gm PO QID [facility] Last Admin: 06/25/18 21:23 Dose: 1 gm - Labs Labs: 06/24/18 08:00 06/25/18 09:00 PT 15.0 SECONDS (9.4-12.5) H 06/20/18 00:17 INR 1.35 06/20/18 00:17 APTT 35.4 Seconds (26.9-38.3) 06/20/18 00:17 - Head Exam Head Exam: ATRAUMATIC - Eye Exam Eye Exam: Normal appearance - ENT Exam ENT Exam: Mucous Membranes Dry - Respiratory Exam Respiratory Exam: NORMAL BREATHING PATTERN - Cardiovascular Exam Cardiovascular Exam: +S1, +S2 - GI/Abdominal Exam GI & Abdominal Exam: Normal Bowel Sounds Assessment and Plan (1) Dehydration Assessment & Plan: improving IV fluids Status: Acute (2) Nausea and vomiting Assessment & Plan: improved antiemetics Status: Acute (3) Pancytopenia Assessment & Plan: secondary to chemotherapy Granix if ANC < 500 Status: Acute (4) Colon cancer Assessment & Plan: stage III outpatient adjuvant chemotherapy Status: Acute
[2018-06-26] MEDS: Oxycodone/Acetaminophen 5/325 mg Tab PO PRN ×3 (06:10→18:41)
[2018-06-26] MEDS: Sucralfate 1 gm/10 ml Oral Susp UD PO SCH ×3 (10:58→18:41)
[2018-06-26] MEDS: Magnesium Oxide 400 mg Tab UD PO SCH (10:59)
[2018-06-26] MEDS: Pantoprazole 40 mg EC Tab PO SCH ×2 (10:59→18:41)
--- NOTE | 2018-06-26 12:54 | CP.PCM.PN ---
<Chris Lemons - Last Filed: 06/26/18 12:51> Subjective - Date & Time of Evaluation Date of Evaluation: 06/26/18 Time of Evaluation: 12:51 - Subjective Subjective: Chris Lemons, PGY-1, Internal Medicine Progress Note for Dr. Lucas Patient seen and evaluated at bedside. Patient had no acute overnight events. Patient reports improvement in abdominal pain. Pain improves with percocet. Patient denies nausea, vomiting, constipation, diarrhea, dysuria, hematuria. 12- point ROS was unremarkable except for what was mentioned above. Objective - Vital Signs/Intake and Output Vital Signs (last 24 hours): Temp Pulse Resp BP Pulse Ox 97.6 F 89 20 95/67 L 10 L 06/26/18 06:00 06/26/18 06:00 06/26/18 06:00 06/26/18 06:00 06/26/18 06:00 Intake and Output: 06/26/18 06/26/18 06:59 18:59 Intake Total 240 Balance 240 - Medications Medications: Current Medications Al Hydrox/Mg Hydrox/Simethicone (Maalox Plus 30 Ml) 30 ml PO DAILY PRN PRN Reason: Indigestion / Heartburn Benzocaine/Menthol (Cepacol Sore Throat) 1 arti MT Q2H PRN PRN Reason: Sore Throat Last Admin: 06/20/18 04:00 Dose: 1 arti Enoxaparin Sodium (Lovenox) 40 mg SC DAILY [facility]; Protocol Last Admin: 06/20/18 10:56 Dose: Not Given Magnesium Oxide (Mag-Ox) 400 mg PO DAILY [facility] Last Admin: 06/26/18 10:59 Dose: 400 mg Metoclopramide HCl (Reglan) 5 mg IVP Q6H PRN PRN Reason: Nausea/Vomiting Last Admin: 06/24/18 05:41 Dose: 5 mg Oxycodone/Acetaminophen (Percocet 5/325 Mg Tab) 1 tab PO Q6H PRN PRN Reason: Pain, severe (8-10) Stop: 06/29/18 12:33 Last Admin: 06/26/18 12:37 Dose: 1 tab Pantoprazole Sodium (Protonix Ec Tab) 40 mg PO BID [facility] Last Admin: 06/26/18 10:59 Dose: 40 mg Sucralfate (Carafate Oral Susp) 1 gm PO QID [facility] Last Admin: 06/26/18 10:58 Dose: 1 gm - Labs Labs: 06/24/18 08:00 06/25/18 09:00 PT 15.0 SECONDS (9.4-12.5) H 06/20/18 00:17 INR 1.35 06/20/18 00:17 APTT 35.4 Seconds (26.9-38.3) 06/20/18 00:17 - Constitutional Appears: Well, Non-toxic, No Acute Distress - Head Exam Head Exam: ATRAUMATIC, NORMOCEPHALIC - Eye Exam Eye Exam: EOMI, PERRL - ENT Exam ENT Exam: Mucous Membranes Moist - Neck Exam Neck Exam: Full ROM, Normal Inspection - Respiratory Exam Respiratory Exam: Clear to PA & Lateral, NORMAL BREATHING PATTERN. absent: Rales, Rhonchi, Wheezes - Cardiovascular Exam Cardiovascular Exam: REGULAR RHYTHM, RRR, +S1, +S2. absent: Clicks, Gallop, Rubs - GI/Abdominal Exam GI & Abdominal Exam: Normal Bowel Sounds, Soft, Tenderness (epigastric). absent: Distended, Firm, Guarding Additional comments: drainage from umbilical area near scar midline. ostomy intact with brown green stool - Neurological Exam Neurological exam: Alert, CN II-XII Intact, Normal Gait, Oriented x3 - Psychiatric Exam Psychiatric exam: Normal Affect, Normal Mood - Skin Additional comments: drainage from umbilical area near site of abdominal scar from surgery Assessment and Plan - Assessment and Plan (Free Text) Assessment: 47 year old female with a past medical history of colon cancer (s/p colectomy and colostomy) and HLD, presented with generalized weakness for 2 weeks. Patient was admitted for abdominal pain and bloody bowel movements. Bloody bowel movements have now resolved. Patient additionally was found to have gram positive bacilli bacteremia. Plan: Corynebacterium bacteremia -Blood culture from 06/22 shows Corynebacterium in one bottle. Other bottle is negative -Primary site of infection unknown -Patient currently does not fulfill SIRS criteria -CXR 06/20: mild right basilar atelectasis and probable tiny bilateral pleural effusions -Abdominal U/S 06/20: examination limited by bowel gas. Dilated CBD in setting of cholecystectomy. -UA 06/22: negative for leukocyte esterase and nitrate -UCx 06/20: Corynebacterium. Possibly contaminate as this is not a typical bacteria to cause UTI -Started levaquin 500 mg daily day 1 of . -Dr. Pierre, ID, consulted for further recommendations. Will follow recs. Epigastric abdominal pain with anemia in the setting of Colon Cancer vs. Chronic Ulcerative Colitis -History of Colon Cancer and Chronic Ulcerative Colitis -Continue to have no bloody bowel movements -Abdominal U/S 06/20: examination limited by bowel gas. Dilated CBD in setting of cholecystectomy. -Hemoglobin is stable in the 8-9s -Transfuse if Hgb<8 -Continue percocet 5/325 Q6PRN for pain -Continue with protonix -Continue maalox for abdominal discomfort from percocet. -Continue GI/Hepatic Diet. She has been tolerating diet well. -As per Surgery, no plans for ileostomy reversal at this time Colon cancer -Patient was initially on capecitabine but as per Heme/Onc, will hold for now until she follows up outpatient. Hypokalemia -Likely 2/2 to GI losses. In addition, patient has hypomagnesia. Currently refusing labs -Replete electrolytes as necessary Hypomagnesia -Replete electrolytes as necessary. Currently refusing labs Neutropenia-resolved -Possible bacteremia due to risk factor of neutropenia -Afebrile at this time but will monitor for fevers -Heme/Onc on consult who requests outpatient follow up and discontinuation of chemotherapy. Nausea and vomiting as side effect of chemotherapy and oxycodone use -Continue with reglan PRN for nausea -Continue with protonix, sucralfate, and maalax for abdominal discomfort -Continue with cepacol PRN for sore throat GI Prophylaxis: protonix DVT prophylaxis: SCD Patient plan discussed with Dr. Lucas. <uSyapa Lucas - Last Filed: 06/26/18 13:30> Objective - Vital Signs/Intake and Output Vital Signs (last 24 hours): Temp Pulse Resp BP Pulse Ox 97.6 F 89 20 95/67 L 10 L 06/26/18 06:00 06/26/18 06:00 06/26/18 06:00 06/26/18 06:00 06/26/18 06:00 Intake and Output: 06/26/18 06/26/18 06:59 18:59 Intake Total 240 Balance 240 - Medications Medications: Current Medications Al Hydrox/Mg Hydrox/Simethicone (Maalox Plus 30 Ml) 30 ml PO DAILY PRN PRN Reason: Indigestion / Heartburn Benzocaine/Menthol (Cepacol Sore Throat) 1 arti MT Q2H PRN PRN Reason: Sore Throat Last Admin: 06/20/18 04:00 Dose: 1 arti Enoxaparin Sodium (Lovenox) 40 mg SC DAILY [facility]; Protocol Last Admin: 06/20/18 10:56 Dose: Not Given Levofloxacin (Levaquin) 500 mg PO DAILY [facility]; Protocol Magnesium Oxide (Mag-Ox) 400 mg PO DAILY [facility] Last Admin: 06/26/18 10:59 Dose: 400 mg Metoclopramide HCl (Reglan) 5 mg IVP Q6H PRN PRN Reason: Nausea/Vomiting Last Admin: 06/24/18 05:41 Dose: 5 mg Oxycodone/Acetaminophen (Percocet 5/325 Mg Tab) 1 tab PO Q6H PRN PRN Reason: Pain, severe (8-10) Stop: 06/29/18 12:33 Last Admin: 06/26/18 12:37 Dose: 1 tab Pantoprazole Sodium (Protonix Ec Tab) 40 mg PO BID [facility] Last Admin: 06/26/18 10:59 Dose: 40 mg Sucralfate (Carafate Oral Susp) 1 gm PO QID [facility] Last Admin: 06/26/18 10:58 Dose: 1 gm - Labs Labs: 06/26/18 10:00 06/25/18 09:00 PT 15.0 SECONDS (9.4-12.5) H 06/20/18 00:17 INR 1.35 06/20/18 00:17 APTT 35.4 Seconds (26.9-38.3) 06/20/18 00:17 Attending/Attestation - Attestation I have personally seen and examined this patient.: Yes I have fully participated in the care of the patient.: Yes I have reviewed all pertinent clinical information, including history, physical exam and plan: Yes Notes (Text): 06/26/18 13:28 47 year old female with past medical history of colon cancer s/p colectomy s/p colostomy who presented with intractable nausea, vomiting with epigastric pain and anemia. She was started on iv fluids and protonix. She was on carafate. Her symptoms have improved. Her hemoglobin remained stable. GI and surgery have signed off. Her diet was advanced which she is tolerating. Patient was noted to have neutropenia, likely secondary to chemotherapy which has improved. She follows up with hematology. She has hypokalemia and hypomagnesemia which were repleted. LFTs have improved. Todays labs are still pending. Patient noted to have one bottle blood culture positive for Corynebacterium. UCx was also positive for Corynebacterium. ID evaluation was appreciated who recommended po levaquin x 14 days. PT recommended ERYN vs HWS. Patient initially refused ERYN but now is agreeable. Will follow up with CMx/Sw. Suyapa Lucas MD Hospitalist.
[2018-06-26] MEDS ORDERED: levoFLOXacin 500 MG TAB PO SCH (13:00)
[2018-06-26] MEDS ORDERED: levoFLOXacin 500 mg in D5W 500 MG/100 ML BAG IVPB SCH (13:00)
[2018-06-26 13:17] LABS: HEMOGLOBIN 9.6 g/dL (12.0-16.0); MEAN CELL VOLUME 78.9 fl (80.0-105.0); MEAN CORPUSCULAR HGB CONC 31.7 g/dl (31.0-37.0); MEAN PLATELET VOLUME 8.3 fl (7.0-11.0); RBC 3.84 10^6/uL (3.5-6.1); RED CELL DISTRIBUTION WIDTH 19.9 % (11.5-14.5); WHITE BLOOD COUNT 5.8 10^3/uL (4.5-11.0)
[2018-06-26 13:38] LABS: BLOOD UREA NITROGEN 5 mg/dL (7-21); GFR NON-AFRICAN AMERICAN > 60
[2018-06-26] MEDS ORDERED: Magnesium Oxide 400 mg Tab UD PO ONE (15:53)
[2018-06-26] MEDS: Potassium Chloride 20 mEq ER Tab PO STA ×2 (16:26→17:00)
[2018-06-26] MEDS ORDERED: Potassium Chloride 40 mEq/30 ml LIQ UD PO ONE (16:34)
[2018-06-26 16:54] VITALS: BP 95/68; PULSE 87; TEMP 98.1; O2SAT 100
--- NOTE | 2018-06-26 18:15 | CP.PCM.PN ---
Subjective - Date & Time of Evaluation Date of Evaluation: 06/26/18 Time of Evaluation: 17:00 - Subjective Subjective: Infectious Disease Follow Up: June 26, 2018 47 year old female with a past medical history of colon cancer (s/p colectomy and colostomy) and HLD, presenting with generalized weakness for 2 weeks. She was diagnosed with colon cancer in March of 2017 and got her surgery in January of 2018. Patient states that she is currently on chemotherapy and her last dose was 2 weeks ago. She states that she has not been eating as she has no appetite. She also admits to nausea and have episodes of vomiting almost every day. She states that she vomited twice today after attemtping to eat a sandwich. Patient is taking Capecitabine daily and states that the medication is making her symptoms worse. She denies hematemesis, fevers, chills, night sweats, chest pain, shortness of breath, diarrhea, or urinary symptoms. The patient with growth of Corynebacterium in urine and 1 out of 2 blood cultures showing gram positive rods (likely also Corynebacterium) in patient with PCN allergy. Can continue with Levaquin PO 500 daily. Objective - Vital Signs/Intake and Output Vital Signs (last 24 hours): Temp Pulse Resp BP Pulse Ox 98.1 F 87 20 95/68 L 100 06/26/18 16:53 06/26/18 16:53 06/26/18 16:53 06/26/18 16:53 06/26/18 16:53 Intake and Output: 06/26/18 06/26/18 06:59 18:59 Intake Total 240 Balance 240 - Medications Medications: Current Medications Al Hydrox/Mg Hydrox/Simethicone (Maalox Plus 30 Ml) 30 ml PO DAILY PRN PRN Reason: Indigestion / Heartburn Benzocaine/Menthol (Cepacol Sore Throat) 1 arti MT Q2H PRN PRN Reason: Sore Throat Last Admin: 06/20/18 04:00 Dose: 1 arti Enoxaparin Sodium (Lovenox) 40 mg SC DAILY [facility]; Protocol Last Admin: 06/20/18 10:56 Dose: Not Given Levofloxacin (Levaquin) 500 mg PO DAILY [facility]; Protocol Last Admin: 06/26/18 15:35 Dose: 500 mg Magnesium Oxide (Mag-Ox) 400 mg PO DAILY [facility] Last Admin: 06/26/18 10:59 Dose: 400 mg Metoclopramide HCl (Reglan) 5 mg IVP Q6H PRN PRN Reason: Nausea/Vomiting Last Admin: 06/24/18 05:41 Dose: 5 mg Oxycodone/Acetaminophen (Percocet 5/325 Mg Tab) 1 tab PO Q6H PRN PRN Reason: Pain, severe (8-10) Stop: 06/29/18 12:33 Last Admin: 06/26/18 12:37 Dose: 1 tab Pantoprazole Sodium (Protonix Ec Tab) 40 mg PO BID [facility] Last Admin: 06/26/18 10:59 Dose: 40 mg Sucralfate (Carafate Oral Susp) 1 gm PO QID [facility] Last Admin: 06/26/18 15:35 Dose: 1 gm - Labs Labs: 06/26/18 10:00 06/26/18 10:00 PT 15.0 SECONDS (9.4-12.5) H 06/20/18 00:17 INR 1.35 06/20/18 00:17 APTT 35.4 Seconds (26.9-38.3) 06/20/18 00:17 - Constitutional Appears: Non-toxic, No Acute Distress, Chronically Ill - Head Exam Head Exam: ATRAUMATIC, NORMOCEPHALIC - Eye Exam Eye Exam: EOMI, PERRL Pupil Exam: NORMAL ACCOMODATION, PERRL - ENT Exam ENT Exam: Mucous Membranes Moist, Normal External Ear Exam, TM's Normal Bilaterally - Neck Exam Neck Exam: Full ROM, Normal Inspection - Respiratory Exam Respiratory Exam: Clear to Ausculation Bilateral, NORMAL BREATHING PATTERN. absent: Rales, Rhonchi, Wheezes - Cardiovascular Exam Cardiovascular Exam: Tachycardia, +S1, +S2 - GI/Abdominal Exam GI & Abdominal Exam: Soft, Normal Bowel Sounds. absent: Distended, Tenderness Additional comments: Colostomy bag noted on right abdomen. Dressing in middle of the abdomen C/D/I - Extremities Exam Extremities Exam: Full ROM, Normal Inspection - Neurological Exam Neurological Exam: Alert, Awake, CN II-XII Intact, Oriented x3 - Psychiatric Exam Psychiatric exam: Normal Affect, Normal Mood - Skin Skin Exam: Intact, Normal Color Assessment and Plan - Assessment and Plan (Free Text) Assessment: 47 yo female with past medical history of colon cancer with colectomy and colostomy with intractable nausea, vomiting, anemia, and epigastric pain. ID called for urine culture with Corynebacterium and 1 of 2 blood cultures with gram positive rods (likely Corynebacterium). Given two sources may be positive, can consider use of Azithromycin or Levaquin for treatment which can be switched to oral therapy when patient can tolerate. Unclear if the patient has a true P CN allergy. Supportive care. Can discharge with oral Levaquin for 14 days of treatment. Mild Hypokalemia. Thank you for allowing me to participate in the care of the patient, we will follow with you.
--- NOTE | 2018-06-26 23:05 | CP.PCM.PN ---
Subjective - Date & Time of Evaluation Date of Evaluation: 06/26/18 Time of Evaluation: 20:00 - Subjective Subjective: Feeling better Objective - Vital Signs/Intake and Output Vital Signs (last 24 hours): Temp Pulse Resp BP Pulse Ox 98.1 F 87 20 95/68 L 100 06/26/18 16:53 06/26/18 16:53 06/26/18 16:53 06/26/18 16:53 06/26/18 16:53 - Medications Medications: Current Medications Al Hydrox/Mg Hydrox/Simethicone (Maalox Plus 30 Ml) 30 ml PO DAILY PRN PRN Reason: Indigestion / Heartburn Benzocaine/Menthol (Cepacol Sore Throat) 1 arti MT Q2H PRN PRN Reason: Sore Throat Last Admin: 06/20/18 04:00 Dose: 1 arti Enoxaparin Sodium (Lovenox) 40 mg SC DAILY [facility]; Protocol Last Admin: 06/20/18 10:56 Dose: Not Given Levofloxacin (Levaquin) 500 mg PO DAILY [facility]; Protocol Last Admin: 06/26/18 15:35 Dose: 500 mg Magnesium Oxide (Mag-Ox) 400 mg PO DAILY [facility] Last Admin: 06/26/18 10:59 Dose: 400 mg Metoclopramide HCl (Reglan) 5 mg IVP Q6H PRN PRN Reason: Nausea/Vomiting Last Admin: 06/24/18 05:41 Dose: 5 mg Oxycodone/Acetaminophen (Percocet 5/325 Mg Tab) 1 tab PO Q6H PRN PRN Reason: Pain, severe (8-10) Stop: 06/29/18 12:33 Last Admin: 06/26/18 18:41 Dose: 1 tab Pantoprazole Sodium (Protonix Ec Tab) 40 mg PO BID [facility] Last Admin: 06/26/18 18:41 Dose: 40 mg Sucralfate (Carafate Oral Susp) 1 gm PO QID [facility] Last Admin: 06/26/18 18:41 Dose: 1 gm - Labs Labs: 06/26/18 10:00 06/26/18 10:00 PT 15.0 SECONDS (9.4-12.5) H 06/20/18 00:17 INR 1.35 06/20/18 00:17 APTT 35.4 Seconds (26.9-38.3) 06/20/18 00:17 - Head Exam Head Exam: ATRAUMATIC - Eye Exam Eye Exam: Normal appearance - ENT Exam ENT Exam: Mucous Membranes Dry - Respiratory Exam Respiratory Exam: NORMAL BREATHING PATTERN - Cardiovascular Exam Cardiovascular Exam: +S1, +S2 - GI/Abdominal Exam GI & Abdominal Exam: Normal Bowel Sounds Assessment and Plan (1) Anemia Assessment & Plan: secondary to recent chemotherapy anemia of chronic disease Status: Acute (2) Colon cancer Assessment & Plan: stage III outpatient adjuvant chemotherapy Status: Acute
--- NOTE | 2018-06-27 06:30 | CP.PCM.DIS ---
<Chris Lemons - Last Filed: 06/27/18 06:24> Provider - Provider Date of Admission: 06/22/18 08:42 Attending physician: Suyapa Lucas MD Consults: 06/20/18 13:59 Hematology Oncology Consult Routine Comment: Consulting Provider: Diogo Teixeira Consulting Physician: Diogo Teixeira Reason for Consult: continuity of care 06/22/18 08:44 Physician Consult Routine Comment: Consulting Provider: Av Ponce Consulting Physician: Av Ponce Reason for Consult: s/p colon cancer; bleeding from rectum 06/24/18 11:15 Infectious Disease Consult Routine Comment: Consulting Provider: Sb Pierre Consulting Physician: Sb Pierre Reason for Consult: gram positive bacilli bacteremia 06/25/18 11:34 Wound Care [Nursing Referral for Wound Care] Routine Comment: dark pink drainage, dressing change recommendation Physician Instructions: Reason For Exam: mid lower abdominal wound with mild drainage Time Spent in preparation of Discharge (in minutes): 60 Hospital Course - Lab Results Lab Results: Micro Results 06/22/18 10:00 Blood-Venous Blood Culture - Preliminary NO GROWTH AFTER 4 DAYS 06/22/18 10:25 Blood-Venous Blood Culture - Final Corynebacterium Species 06/22/18 10:25 Blood-Venous Gram Stain - Final 06/22/18 09:20 Urine,Clean Catch Urine Culture - Final No Growth (<1,000 CFU/ML) 06/20/18 02:12 Urine Random Urine Culture - Final Corynebacterium Species Most Recent Lab Values WBC 5.8 10^3/uL (4.5-11.0) D 06/26/18 10:00 RBC 3.84 10^6/uL (3.5-6.1) 06/26/18 10:00 Hgb 9.6 g/dL (12.0-16.0) L 06/26/18 10:00 Hct 30.3 % (36.0-48.0) L 06/26/18 10:00 MCV 78.9 fl (80.0-105.0) L 06/26/18 10:00 MCH 25.0 pg (25.0-35.0) 06/26/18 10:00 MCHC 31.7 g/dl (31.0-37.0) 06/26/18 10:00 RDW 19.9 % (11.5-14.5) H 06/26/18 10:00 Plt Count 372 10^3/uL (120.0-450.0) 06/26/18 10:00 MPV 8.3 fl (7.0-11.0) 06/26/18 10:00 Neut % (Auto) 31.5 % (50.0-68.0) L 06/24/18 08:00 Lymph % (Auto) 23.1 % (22.0-35.0) 06/24/18 08:00 Caldwell % (Auto) 37.8 % (1.0-6.0) H 06/24/18 08:00 Eos % (Auto) 7.4 % (1.5-5.0) H 06/24/18 08:00 Baso % (Auto) 0.2 % (0.0-3.0) 06/24/18 08:00 Lymph # (Auto) 1.1 (1.2-3.4) L 06/24/18 08:00 Caldwell # (Auto) 1.7 (0.1-0.6) H 06/24/18 08:00 Eos # (Auto) 0.3 (0.0-0.7) 06/24/18 08:00 Baso # (Auto) 0.01 K/mm3 (0.0-2.0) 06/24/18 08:00 Absolute Neuts (auto) 1.44 (1.4-6.5) 06/24/18 08:00 Neutrophils % (Manual) 26 % (50.0-70.0) L 06/24/18 08:00 Band Neutrophils % 6 % (0-2) H 06/24/18 08:00 Lymphocytes % (Manual) 31 % (22.0-35.0) 06/24/18 08:00 Atypical Lymphs % 1 % (0.0-0.0) H 06/20/18 12:30 Monocytes % (Manual) 26 % (1.0-6.0) H 06/24/18 08:00 Eosinophils % (Manual) 11 % (0.0-3.0) H 06/24/18 08:00 Platelet Evaluation Normal (NORMAL) 06/24/18 08:00 PT 15.0 SECONDS (9.4-12.5) H 06/20/18 00:17 INR 1.35 06/20/18 00:17 APTT 35.4 Seconds (26.9-38.3) 06/20/18 00:17 pO2 171 mm/Hg (30-55) H 06/20/18 12:30 VBG pH 7.39 (7.32-7.43) 06/20/18 12:30 VBG pCO2 46.0 (40-60) 06/20/18 12:30 VBG HCO3 27.8 mmol/l (21-28) 06/20/18 12:30 VBG Total CO2 29.2 mmol.L (22-28) H 06/20/18 12:30 VBG O2 Sat (Calc) 99.9 % (40-65) H 06/20/18 12:30 VBG Base Excess 2.2 mmol/L (0.0-2.0) H 06/20/18 12:30 VBG Potassium 3.9 mmol/L (3.6-5.2) 06/20/18 12:30 Sodium 137.0 mmol/L (132-148) 06/20/18 12:30 Chloride 107.0 mmol/L (98-107) 06/20/18 12:30 Glucose 107 mg/dl (65-105) H 06/20/18 12:30 Lactate 0.9 mmol/L (0.7-2.1) 06/20/18 12:30 FiO2 21.0 % 06/20/18 12:30 Crit Value Called To Bridgett roberts labor delivery rn 06/20/18 00:10 Crit Value Called By Coty perdue showplace manager 06/20/18 00:10 Blood Gas Notified Time 34 06/20/18 00:10 Sodium 135 mmol/L (132-148) 06/26/18 10:00 Potassium 3.5 mmol/L (3.6-5.0) L 06/26/18 10:00 Chloride 99 mmol/L (98-107) 06/26/18 10:00 Carbon Dioxide 32 mmol/L (21-33) 06/26/18 10:00 Anion Gap 8 (10-20) L 06/26/18 10:00 BUN 5 mg/dL (7-21) L 06/26/18 10:00 Creatinine 0.4 mg/dl (0.7-1.2) L 06/26/18 10:00 Est GFR ( Amer) > 60 06/26/18 10:00 Est GFR (Non-Af Amer) > 60 06/26/18 10:00 Random Glucose 91 mg/dL (70-110) 06/26/18 10:00 Calcium 8.0 mg/dL (8.4-10.5) L 06/26/18 10:00 Phosphorus 2.7 mg/dL (2.5-4.5) 06/25/18 09:00 Magnesium 1.6 mg/dL (1.7-2.2) L 06/26/18 10:00 Total Bilirubin 0.5 mg/dL (0.2-1.3) 06/25/18 09:00 AST 32 U/L (14-36) 06/25/18 09:00 ALT 28 U/L (7-56) 06/25/18 09:00 Alkaline Phosphatase 178 U/L (38-126) H 06/25/18 09:00 Total Creatine Kinase < 20 U/L (35-230) L 06/20/18 00:17 Troponin I < 0.01 ng/mL 06/20/18 00:17 NT-Pro-B Natriuret Pep 104 pg/mL (0-450) 06/20/18 00:17 Total Protein 5.0 g/dL (5.8-8.3) L 06/25/18 09:00 Albumin 2.2 g/dL (3.0-4.8) L 06/25/18 09:00 Globulin 2.8 gm/dL 06/25/18 09:00 Albumin/Globulin Ratio 0.8 (1.1-1.8) L 06/25/18 09:00 Lipase 201 U/L (23-300) 06/20/18 00:17 Venous Blood Potassium 3.9 mmol/L (3.6-5.2) 06/20/18 12:30 Urine Color Yellow (YELLOW) 06/22/18 09:20 Urine Appearance Clear (CLEAR) 06/22/18 09:20 Urine pH 6.0 (4.7-8.0) 06/22/18 09:20 Ur Specific Yoder 1.020 (1.005-1.035) 06/22/18 09:20 Urine Protein Negative mg/dL (<30 mg/dL) 06/22/18 09:20 Urine Glucose (UA) Negative mg/dL (NEGATIVE) 06/22/18 09:20 Urine Ketones Trace mg/dL (NEGATIVE) H 06/22/18 09:20 Urine Blood Moderate (NEGATIVE) H 06/22/18 09:20 Urine Nitrate Negative (NEGATIVE) 06/22/18 09:20 Urine Bilirubin Negative (NEGATIVE) 06/22/18 09:20 Urine Urobilinogen 0.2 E.U./dL (<1 E.U./dL) 06/22/18 09:20 Ur Leukocyte Esterase Negative Quinton/uL (NEGATIVE) 06/22/18 09:20 Urine RBC 20 - 25 /hpf (0-2) H 06/22/18 09:20 Urine WBC 1 - 3 /hpf (0-6) 06/22/18 09:20 Ur Epithelial Cells 6 - 8 /hpf (0-5) H 06/22/18 09:20 Amorphous Sediment Few /hpf (NONE) 06/20/18 02:12 Urine Bacteria Many /hpf (NONE) 06/22/18 09:20 Urine Other Uyeast /hpf 06/22/18 09:20 Blood Type AB POSITIVE 06/20/18 00:17 Blood Type Confirm AB POSITIVE 06/20/18 01:25 Antibody Screen Negative 06/20/18 00:17 BBK History Checked No verified bt 06/20/18 00:17 - Hospital Course Hospital Course: Chris Lemons, PGY-1, Internal Medicine Discharge Summary for Dr. Lucas 47 year old female with past medical history of ulcerative colitis, colon cancer status post colectomy and colostomy and hyperlipidemia presented with generalized weakness for 2 weeks. She was diagnosed with colon cancer in March 2017 and had colectomy in January 2018 with ileostomy. Patient was started on chemotherapy and had last dose 2 weeks prior to admission. She was taking capecitabine. She stated not being able to eat as she had no appetite. She also admitted nausea and had daily episodes of vomiting. Her chemotherapy drug, capecitabine made the symptoms worse. Abdominal pain on admission was likely 2/2 to colon cancer vs. UC vs. chemotherapy regimen she was on. She was started on morphine 2 mg Q4 as needed on admission, started on liquid diet. She also was found to have blood in her ostomy. Lovenox was held as a result. GI recommended that patient could have ileostomy reversed outpatient. GI had no plans for any intervention. Hemoglobin has been stable in the 8-9s throughout this admission after an initial drop from 13.2 on admission. For nausea and vomiting, she was initially started on promethazine which was switched to reglan subsequently which helped reduce the nausea and vomiting episodes. In addition, protonix and sucralfate were added for protection of the stomach lining. Patient's morphine was stopped on 06/23 and percocet was started on 06/23. Patient complained of abdominal pain and one episode of vomiting upon switching the medication. She reported pain was di fferent than it had been in the past. As a result, maalox was started, which improved her abdominal pain and patient did not have any other episodes of vomiting on this admission. On 06/22, patient was progressed to altered GI/Hepatic Diet. Patient was also found to be neutropenic at this time and neutropenic precautions were started. Patient's ANC never dropped below 500. Patient was not febrile. However, patient's blood culture was positive for Corynebacterium. This only grew in one bottle and could have been a contaminate as this was found in urine culture as well though UA did not suggest UTI. Dr. Teixeira, Heme/Onc, recommended that patient should see him outpatient and stop chemotherapy drug until she seems him outpatient. He felt as if the chemotherapy regimen she was on was probably too strong and they would alter the regimen outpatient. As per Dr. Pierre, Infectious Disease, he advised discharging her with levaquin for 14 days for bacteremia. Patient has additionally been hypokalemic during this admission likely 2/2 to GI losses and hypokalemia has been repleted appropriately. Magnesium was found to be low this morning and both potassium and magnesium were repleted prior to patient discharge to subacute rehabilitation. Patient was found to be stable and ready for discharge to subacute rehabilitation. Patient was told to follow up with PCP within 3-5 days after rehabilitation. Patient was told to follow up with Dr. Teixeira in 1 week. Patient was told to take all medications as prescribed including levaquin for 13 days. Patient was told to return to the emergency department if she had any new or concerning symptoms. Imaging: Chest X ray 06/20: right central veous catheter extends expected location of SVC. Mild right basilar atelectasis and probable tiny bilateral pleural effusion Abdominal ultrasound 06/20: examination limited by bowel gas. Dilated common bile duct in the setting of cholecystectomy EKG 06/20: sinus tachycarda with HR: 135 with QTC: 555 Discharge diagnoses Corynebacterium bacteremia Colon Cancer Ulcerative Colitis Hypokalemia Hypomagnesia Neutropenia - Date & Time of H&P Date of H&P: 06/20/18 Time of H&P: 02:07 Discharge Exam - Head Exam Head Exam: ATRAUMATIC, NORMAL INSPECTION - Eye Exam Eye Exam: EOMI, PERRL - ENT Exam ENT Exam: Mucous Membranes Moist, Normal Exam - Neck Exam Neck exam: Normal Inspection - Respiratory Exam Respiratory Exam: Clear to PA & Lateral, NORMAL BREATHING PATTERN - Cardiovascular Exam Cardiovascular Exam: REGULAR RHYTHM, RRR, +S1, +S2. absent: Clicks, Gallop, Rubs - GI/Abdominal Exam GI & Abdominal Exam: Normal Bowel Sounds, Soft, Tenderness (epigastric). absent: Distended, Firm, Guarding Additional comments: drainage from umbilical area near scar midline. ostomy intact with brown green stool - Extremities Exam Extremities exam: full ROM, normal capillary refill, normal inspection - Neurological Exam Neurological exam: Alert, CN II-XII Intact, Oriented x3 - Psychiatric Exam Psychiatric exam: Normal Affect, Normal Mood - Skin Skin Exam: Dry, Intact, Normal Color Additional comments: drainage from umbilical area near site of abdominal scar from surgery Discharge Plan - Discharge Medications Prescriptions: Levofloxacin [Levaquin] 500 mg PO DAILY #14 tablet oxyCODONE/Acetaminophen [Percocet 5/325 mg Tab] 1 tab PO Q6H PRN #10 tab PRN Reason: Pain, Severe (8-10) Pantoprazole Sodium [Protonix] 40 mg PO DAILY #14 ect Sucralfate [Carafate Oral Susp] 1 gm PO BID 14 Days #28 udc - Follow Up Plan Condition: FAIR [facility] Instructions: How to Care for Your Ostomy, Adult, Syncope (ED) Additional Instructions: Please follow up with your primary care doctor, Dr. Lazar, within 3-5 days. Please follow up with Dr. Teixeira, Oncology, within 1 week of discharge. Please discontinue your capecitabine until you have followed up with Dr. Teixeira. Please discontinue home tramadol. Please take percocet every 6 hours as needed for pain. Please take levaquin 500 mg once a day for 13 days. Please continue all medications as prescribed. Please return to the emergency department if you have any new or concerning symptoms. Referrals: Diogo Teixeira MD [Staff Provider] - Trent Lazar MD [Family Provider] - <Suyapa Lucas - Last Filed: 06/27/18 07:01> Provider - Provider Date of Admission: 06/22/18 08:42 Attending physician: Suyapa Lucas MD Consults: 06/20/18 13:59 Hematology Oncology Consult Routine Comment: Consulting Provider: Diogo Teixeira Consulting Physician: Diogo Teixeira Reason for Consult: continuity of care 06/22/18 08:44 Physician Consult Routine Comment: Consulting Provider: Av Ponce Consulting Physician: Av Ponce Reason for Consult: s/p colon cancer; bleeding from rectum 06/24/18 11:15 Infectious Disease Consult Routine Comment: Consulting Provider: Sb Pierre Consulting Physician: Sb Pierre Reason for Consult: gram positive bacilli bacteremia 06/25/18 11:34 Wound Care [Nursing Referral for Wound Care] Routine Comment: dark pink drainage, dressing change recommendation Physician Instructions: Reason For Exam: mid lower abdominal wound with mild drainage Hospital Course - Lab Results Lab Results: Micro Results 06/22/18 10:00 Blood-Venous Blood Culture - Preliminary NO GROWTH AFTER 4 DAYS 06/22/18 10:25 Blood-Venous Blood Culture - Final Corynebacterium Species 06/22/18 10:25 Blood-Venous Gram Stain - Final 06/22/18 09:20 Urine,Clean Catch Urine Culture - Final No Growth (<1,000 CFU/ML) 06/20/18 02:12 Urine Random Urine Culture - Final Corynebacterium Species Most Recent Lab Values WBC 5.8 10^3/uL (4.5-11.0) D 06/26/18 10:00 RBC 3.84 10^6/uL (3.5-6.1) 06/26/18 10:00 Hgb 9.6 g/dL (12.0-16.0) L 06/26/18 10:00 Hct 30.3 % (36.0-48.0) L 06/26/18 10:00 MCV 78.9 fl (80.0-105.0) L 06/26/18 10:00 MCH 25.0 pg (25.0-35.0) 06/26/18 10:00 MCHC 31.7 g/dl (31.0-37.0) 06/26/18 10:00 RDW 19.9 % (11.5-14.5) H 06/26/18 10:00 Plt Count 372 10^3/uL (120.0-450.0) 06/26/18 10:00 MPV 8.3 fl (7.0-11.0) 06/26/18 10:00 Neut % (Auto) 31.5 % (50.0-68.0) L 06/24/18 08:00 Lymph % (Auto) 23.1 % (22.0-35.0) 06/24/18 08:00 Caldwell % (Auto) 37.8 % (1.0-6.0) H 06/24/18 08:00 Eos % (Auto) 7.4 % (1.5-5.0) H 06/24/18 08:00 Baso % (Auto) 0.2 % (0.0-3.0) 06/24/18 08:00 Lymph # (Auto) 1.1 (1.2-3.4) L 06/24/18 08:00 Caldwell # (Auto) 1.7 (0.1-0.6) H 06/24/18 08:00 Eos # (Auto) 0.3 (0.0-0.7) 06/24/18 08:00 Baso # (Auto) 0.01 K/mm3 (0.0-2.0) 06/24/18 08:00 Absolute Neuts (auto) 1.44 (1.4-6.5) 06/24/18 08:00 Neutrophils % (Manual) 26 % (50.0-70.0) L 06/24/18 08:00 Band Neutrophils % 6 % (0-2) H 06/24/18 08:00 Lymphocytes % (Manual) 31 % (22.0-35.0) 06/24/18 08:00 Atypical Lymphs % 1 % (0.0-0.0) H 06/20/18 12:30 Monocytes % (Manual) 26 % (1.0-6.0) H 06/24/18 08:00 Eosinophils % (Manual) 11 % (0.0-3.0) H 06/24/18 08:00 Platelet Evaluation Normal (NORMAL) 06/24/18 08:00 PT 15.0 SECONDS (9.4-12.5) H 06/20/18 00:17 INR 1.35 06/20/18 00:17 APTT 35.4 Seconds (26.9-38.3) 06/20/18 00:17 pO2 171 mm/Hg (30-55) H 06/20/18 12:30 VBG pH 7.39 (7.32-7.43) 06/20/18 12:30 VBG pCO2 46.0 (40-60) 06/20/18 12:30 VBG HCO3 27.8 mmol/l (21-28) 06/20/18 12:30 VBG Total CO2 29.2 mmol.L (22-28) H 06/20/18 12:30 VBG O2 Sat (Calc) 99.9 % (40-65) H 06/20/18 12:30 VBG Base Excess 2.2 mmol/L (0.0-2.0) H 06/20/18 12:30 VBG Potassium 3.9 mmol/L (3.6-5.2) 06/20/18 12:30 Sodium 137.0 mmol/L (132-148) 06/20/18 12:30 Chloride 107.0 mmol/L (98-107) 06/20/18 12:30 Glucose 107 mg/dl (65-105) H 06/20/18 12:30 Lactate 0.9 mmol/L (0.7-2.1) 06/20/18 12:30 FiO2 21.0 % 06/20/18 12:30 Crit Value Called To Bridgett roberts labor delivery rn 06/20/18 00:10 Crit Value Called By Coty perdue rrt 06/20/18 00:10 Blood Gas Notified Time 34 06/20/18 00:10 Sodium 135 mmol/L (132-148) 06/26/18 10:00 Potassium 3.5 mmol/L (3.6-5.0) L 06/26/18 10:00 Chloride 99 mmol/L (98-107) 06/26/18 10:00 Carbon Dioxide 32 mmol/L (21-33) 06/26/18 10:00 Anion Gap 8 (10-20) L 06/26/18 10:00 BUN 5 mg/dL (7-21) L 06/26/18 10:00 Creatinine 0.4 mg/dl (0.7-1.2) L 06/26/18 10:00 Est GFR ( Amer) > 60 06/26/18 10:00 Est GFR (Non-Af Amer) > 60 06/26/18 10:00 Random Glucose 91 mg/dL (70-110) 06/26/18 10:00 Calcium 8.0 mg/dL (8.4-10.5) L 06/26/18 10:00 Phosphorus 2.7 mg/dL (2.5-4.5) 06/25/18 09:00 Magnesium 1.6 mg/dL (1.7-2.2) L 06/26/18 10:00 Total Bilirubin 0.5 mg/dL (0.2-1.3) 06/25/18 09:00 AST 32 U/L (14-36) 06/25/18 09:00 ALT 28 U/L (7-56) 06/25/18 09:00 Alkaline Phosphatase 178 U/L (38-126) H 06/25/18 09:00 Total Creatine Kinase < 20 U/L (35-230) L 06/20/18 00:17 Troponin I < 0.01 ng/mL 06/20/18 00:17 NT-Pro-B Natriuret Pep 104 pg/mL (0-450) 06/20/18 00:17 Total Protein 5.0 g/dL (5.8-8.3) L 06/25/18 09:00 Albumin 2.2 g/dL (3.0-4.8) L 06/25/18 09:00 Globulin 2.8 gm/dL 06/25/18 09:00 Albumin/Globulin Ratio 0.8 (1.1-1.8) L 06/25/18 09:00 Lipase 201 U/L (23-300) 06/20/18 00:17 Venous Blood Potassium 3.9 mmol/L (3.6-5.2) 06/20/18 12:30 Urine Color Yellow (YELLOW) 06/22/18 09:20 Urine Appearance Clear (CLEAR) 06/22/18 09:20 Urine pH 6.0 (4.7-8.0) 06/22/18 09:20 Ur Specific Yoder 1.020 (1.005-1.035) 06/22/18 09:20 Urine Protein Negative mg/dL (<30 mg/dL) 06/22/18 09:20 Urine Glucose (UA) Negative mg/dL (NEGATIVE) 06/22/18 09:20 Urine Ketones Trace mg/dL (NEGATIVE) H 06/22/18 09:20 Urine Blood Moderate (NEGATIVE) H 06/22/18 09:20 Urine Nitrate Negative (NEGATIVE) 06/22/18 09:20 Urine Bilirubin Negative (NEGATIVE) 06/22/18 09:20 Urine Urobilinogen 0.2 E.U./dL (<1 E.U./dL) 06/22/18 09:20 Ur Leukocyte Esterase Negative Quinton/uL (NEGATIVE) 06/22/18 09:20 Urine RBC 20 - 25 /hpf (0-2) H 06/22/18 09:20 Urine WBC 1 - 3 /hpf (0-6) 06/22/18 09:20 Ur Epithelial Cells 6 - 8 /hpf (0-5) H 06/22/18 09:20 Amorphous Sediment Few /hpf (NONE) 06/20/18 02:12 Urine Bacteria Many /hpf (NONE) 06/22/18 09:20 Urine Other Uyeast /hpf 06/22/18 09:20 Blood Type AB POSITIVE 06/20/18 00:17 Blood Type Confirm AB POSITIVE 06/20/18 01:25 Antibody Screen Negative 06/20/18 00:17 BBK History Checked No verified bt 06/20/18 00:17 Attending/Attestation - Attestation I have personally seen and examined this patient.: Yes I have fully participated in the care of the patient.: Yes I have reviewed all pertinent clinical information, including history, physical exam and plan: Yes Notes (Text): see progress note earlier in the day
== END 2018-06-26 23:23 | DRG 552 ==
LOC: ED 00:03 → ERH 02:02 → 2RNO 03:28 → 3RNO 17:28 → OBSVTOIN 06-22 08:42 → 3RNO 06-25 00:23
PROVIDERS: ADMIT Internal Medicine; ATTEND Internal Medicine
DX: K51.90 Ulcerative colitis, unspecified, without complications (principal); D61.810 Antineoplastic chemotherapy induced pancytopenia; C18.9 Malignant neoplasm of colon, unspecified; E86.0 Dehydration; R78.81 Bacteremia; E87.6 Hypokalemia; T45.1X5A Adverse effect of antineoplastic and immunosuppressive drugs, initial encounter; D63.8 Anemia in other chronic diseases classified elsewhere; R11.2 Nausea with vomiting, unspecified; E78.5 Hyperlipidemia, unspecified; B96.89 Other specified bacterial agents as the cause of diseases classified elsewhere; K83.8 Other specified diseases of biliary tract; E83.42 Hypomagnesemia; Z93.2 Ileostomy status; Z88.0 Allergy status to penicillin; Z90.49 Acquired absence of other specified parts of digestive tract